=== PATIENT | female | born 1995 | race Caucasian/White ===

== ENCOUNTER 2023-11-09 14:45 | Outpatient (CLI) | payer BC, SELFPAY ==
[2023-11-09 15:59] LABS: HCG,Quantitative 7701 mIU/ml (0-5.42)
[2023-11-10 08:21] LABS: Progesterone 9.6 ng/mL (.)
== END 2023-11-09 23:59 | disposition home or self-care (01) ==
LOC: LAB 14:48
PROVIDERS: Visit Provider Obstetrics & Gynecology
DX: N92.6 Irregular menstruation, unspecified (principal)
CPT/HCPCS: 36415; 84144; 84702

== ENCOUNTER 2023-11-11 09:15 | Outpatient (CLI) | payer BC, SELFPAY ==
[2023-11-11 10:04] LABS: HCG,Quantitative 11450 mIU/ml (0-5.42)
== END 2023-11-11 23:59 | disposition home or self-care (01) ==
LOC: LAB 09:16
PROVIDERS: Visit Provider Obstetrics & Gynecology
DX: Z34.90 Encounter for supervision of normal pregnancy, unspecified, unspecified trimester (principal)
CPT/HCPCS: 36415; 84702

== ENCOUNTER 2023-11-12 14:52 | Outpatient (CLI) | payer BC, SELFPAY | END 2023-11-12 23:59 | disposition home or self-care (01) | LOC: LAB.DROPOF 14:52 | PROVIDERS: PCP Obstetrics & Gynecology; Visit Provider Obstetrics & Gynecology | DX: O20.9 Hemorrhage in early pregnancy, unspecified (principal); Z3A.01 Less than 8 weeks gestation of pregnancy | CPT/HCPCS: 87086 ==

== ENCOUNTER 2023-11-23 15:26 | Outpatient (CLI) | payer BC, SELFPAY ==
[2023-11-23 15:51] LABS: Basophils # 0.1 K/mm3 (0-0.2); Basophils % 0.7 % (0.1-2.0); Eosinophils # 0.2 K/mm3 (0.0-0.4); Eosinophils % 2.5 % (0.1-12.0); Hematocrit 32.8 % (37.0-47.0); Hemoglobin 10.7 g/dL (12.2-16.2); Lymphocytes # 2.3 K/mm3 (0.7-4.5); Lymphocytes % 23.7 % (10-50); Mean Corpuscular HGB Conc 32.7 g/dL (31.8-35.4); Mean Corpuscular Hemoglobin 21.9 pg (27.0-31.2); Monocytes # 0.6 K/mm3 (0.1-1.0); Monocytes % 5.6 % (1.7-9.3); Neutrophils # 6.7 K/mm3 (1.8-7.8); Neutrophils % 67.7 % (37.0-80.0); Platelet Count 442 K/mm3 (142-424); Red Blood Count 4.89 M/mm3 (4.20-5.40); Red Cell Distribution Width 18.2 % (11.5-17.5); White Blood Count 9.9 K/mm3 (4.8-10.8)
[2023-11-23 16:40] LABS: Alanine Aminotransferase 20 U/L (12-78); Albumin Level 4.3 g/dl (3.5-5.0); Albumin/Globulin Ratio 1.3 (1.1-1.8); Alkaline Phosphatase 105 U/L (38-126); Anion Gap 16.2 mEq/L (5-15); Aspartate Amino Transferase 20 U/L (14-36); Bilirubin,Total 0.2 mg/dl (0.2-1.3); Blood Urea Nitrogen 7 mg/dl (7-17); Calcium 9.4 mg/dl (8.4-10.2); Carbon Dioxide 19 mmol/L (22.0-30.0); Chloride 107 mmol/L (98-107); Estimated Glomerular Filt Rate 190 ml/min (>60); GFR (African American) 230 ML/MIN (>60); Globulin 3.2 g/dL (1.3-3.2); Glucose 92 mg/dl (74-100); Potassium 4.2 mmoL/L (3.5-5.1); Sodium 138 mmol/L (136-145); Total Protein,Serum 7.5 g/dl (6.3-8.2)
[2023-11-24 14:14] LABS: HIV (1&2) Antibody Rapid NONREACTIVE (NONREACTIVE)
[2023-11-25 07:52] LABS: HCV Ab Non Reactive (Non Reactive); Hepatitis B Surface Antigen Negative (Negative)
[2023-11-25 08:53] LABS: Rubella Antibodies, IgG 1.68 index (Immune >0.99)
[2023-11-25 11:14] LABS: Rapid Plasma Reagin Ab Titer Non Reactive titer (NonRea<1:1)
[2023-11-29 00:03] LABS: Neisseria gonorrhoeae, NAA Negative (Negative)
== END 2023-11-23 23:59 | disposition home or self-care (01) ==
LOC: LAB 15:26
PROVIDERS: Visit Provider Obstetrics & Gynecology
DX: Z34.90 Encounter for supervision of normal pregnancy, unspecified, unspecified trimester (principal)
CPT/HCPCS: 86803; 86703; 36415; 80053; 85025; 86593; 86762; 86850; 87340; 87491; 87591

== ENCOUNTER 2023-11-25 11:17 | Outpatient (CLI) | payer BC, SELFPAY ==
[2023-11-25 12:07] LABS: Total Protein 24 Hour,Urine 176 mg/24 hr (40-90); Total Volume,Urine 1950 mL (600-1600)
== END 2023-11-25 23:59 | disposition home or self-care (01) ==
LOC: LAB 11:18
PROVIDERS: Visit Provider Obstetrics & Gynecology
DX: Z34.90 Encounter for supervision of normal pregnancy, unspecified, unspecified trimester (principal)
CPT/HCPCS: 84155

== ENCOUNTER 2023-11-25 20:56 | Emergency (ER) | payer BC, SELFPAY ==
[2023-11-25 20:58] VITALS: BP 152/108; PULSE 96; RESP 18; TEMP 36.8; O2SAT 100; BMI 34.3
[2023-11-25 21:13] LABS: Microscopic, Urine URINE MICROSCOPIC (MICROSCOPIC)
[2023-11-25 21:15] LABS: Appearance,Urine CLEAR (Clear); Bilirubin,Urine Negative (Negative); Blood, Urine 1+ (Negative); Color,Urine YELLOW (Yellow); Glucose,Urine (UA) Negative (Negative); Ketones,Urine Negative (Negative); Leukocyte Esterase,Urine 2+ (Negative); Nitrate,Urine Negative (Negative); PH,Urine 7.5 (5.0-8.5); Protein,Urine Negative (Negative); Specific Gravity, Urine 1.015 (1.005-1.030); Urobilinogen,Urine 0.2 EU/dl (0.2)
--- NOTE | 2023-11-25 21:18 | HMH.EDGENADL ---
Discharge Plan Disposition Patient Disposition: Home, Self-Care Condition: Good Prescriptions Prescriptions: New cephalexin 500 mg capsule 500 mg PO Q6H 5 Days Qty: 20 0RF No Action Classic 28 mg iron- 800 mcg tablet 1 tab PO DAILY progesterone micronized [Prometrium] 100 mg capsule 200 mg vaginal DAILY 30 Days Qty: 60 2RF Rx Instructions: Please place one tablet vaginally each night until 12 weeks gestation Referrals Follow up/Referrals: Provider,Referral, MD [Primary Care Provider] - See instructions Activity Restrictions/Add. Instructions Additional Instructions/Restrictions: You were evaluated in the emergency department today. 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 Follow-up closely with your BODY TEAM MEMBER on Wednesday for reassessment of your blood pressure and further monitoring. Return to the emergency department for new or worsening symptoms, such as severe pain, significant worsening in bleeding, severe headache, or other concerns. Clinical Impressions Clinical Impression: Vaginal bleeding affecting early , Hypertension affecting , Asymptomatic bacteriuria during Instructions Patient Instructions: DI for Vaginal Bleeding During Print Language Print Language: Maltese Discharge ED Provider: Pratima Epperson General Adult HPI General Chief complaint: Vaginal Bleeding Stated complaint: 8 weeks with spotting Time Seen by Provider: 11/25/23 20:59 Mode of Arrival: Ambulatory Source of Information: Patient Limitations: No Limitations Description of Symptoms (Recalled from ER Triage Doc. by RN): Patient reports that she's 8 weeks and has had light intermittent spotting. 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 Patient reports intermittent cramping the whole and states that it does not seem increased at this time. Patients has had one TVUS which showed gestational sac and pole intrauterine. History of Present Illness HPI narrative: This patient is a 28-year-old female at estimated 8 weeks gestational age with history of preeclampsia in prior presenting to the emergency department for evaluation with concern for pelvic cramping and vaginal bleeding. Patient reports that she has had intermittent cramping and spotting throughout her entire at this point, however things got worse today after 2 days of improved symptoms. She states she is having blood when she wipes and believes that there was a small piece of tissue of some sort. She had a miscarriage back in October so she was worried that something could be wrong. She is on progesterone suppositories and does not know if potentially she could have caused some irritation with insertion. No other concerns noted at this time. I reviewed patient's past medical records and noted previous ultrasound which confirmed IUP. I also noted that her blood type is O+. Related Data Home Medications ?Medication ?Instructions ?Recorded ?Confirmed vits no.126-ferrous fum 1 tab PO DAILY 11/12/23 11/23/23 28 mg iron-folic acid 800 mcg tablet (Classic ) Previous Rx's ?Medication ?Instructions ?Recorded progesterone micronized 100 mg 200 mg (2 x 100 mg) vaginal DAILY 11/10/23 capsule (Prometrium) 30 days #60 caps cephalexin 500 mg capsule 500 mg PO Q6H 5 days #20 caps 11/25/23 Allergies Allergy/AdvReac Type Severity Reaction Status Date / Time amoxicillin Allergy Mild Hives Verified 11/23/23 14:29 [facility] Disclaimer: The information contained in this section may have been updated after the patient was seen, as this information can be updated by other users. Medical History Vaginal bleeding affecting early History of miscarriage Surgical History [place] teeth extracted History of ankle surgery Family History Other No significant family history Social History Smoking Status: Never smoker alcohol intake: never current occupational status: unemployed Travel in the last 8 weeks: None ROS Obtained: Yes All systems reviewed & no additional complaints except as documented Physical Exam General General appearance: alert and in no apparent distress Head Head exam: atraumatic and normocephalic Eye Eye exam: Present normal appearance, PERRL and EOMI ENT ENT exam: Present normal exam, normal oropharynx, mucous membranes moist and normal external ear exam Neck Neck exam: Present normal inspection, full ROM and trachea midline; Absent tenderness Chest Chest inspection: Present normal inspection and symmetric chest wall rise; Absent tenderness Respiratory Respiratory exam: Present normal lung sounds bilaterally; Absent respiratory distress, wheezes, stridor or accessory muscle use Cardiovascular Cardiovascular exam: Present regular rate and normal rhythm Abdominal Exam Abdominal exam: Present soft; Absent distention, tenderness or guarding Extremities Exam Extremities exam: Present normal inspection, full ROM and normal capillary refill; Absent tenderness or edema Back Exam Back exam: Present normal inspection and full ROM; Absent tenderness Neurological Exam Neurological exam: Present alert, oriented X3, CN II-XII intact and normal gait; Absent motor sensory deficit Psychiatric Psychiatric exam: Present normal affect and normal mood Skin Skin exam: Present warm and dry Medical Decision Making Medical Records Medical records reviewed: Yes I reviewed the patient's medical records. Darius Inquiry Pt receiving controlled substance: No Vital Signs: 11/25/23 20:58 11/25/23 21:45 Temperature 98.2 F Temperature Source Oral Pulse Rate 76 Pulse Rate [Left Radial] 96 H Respiratory Rate 18 Blood Pressure 132/91 H Blood Pressure [Left Arm] 152/108 H Blood Pressure Mean 108 Blood Pressure Mean [Left Arm] 122 Blood Pressure Source [Left Arm] Automatic Cuff Blood Pressure Position [Left Arm] Sitting 02 Sat by Pulse Oximetry 100 98 Oxygen Delivery Method Room Air Room Air Lab Data Lab results reviewed: Yes I reviewed the patient's lab results. Lab Results 11/25/23 21:02: Urine Color Yellow, Urine Appearance Clear, Urine pH 7.5, Ur Specific [place] 1.015, Urine Protein Negative, Urine Glucose (UA) Negative, Urine Ketones Negative, Urine Blood 1+, Urine Nitrate Negative, Urine Bilirubin Negative, Urine Urobilinogen 0.2, Ur Leukocyte Esterase 2+ A, Urine RBC 3-5, Urine WBC 20-50, Ur Squamous Epith Cells 3-5, Amorphous Sediment Trace, Urine Bacteria 2+ 11/25/23 21:21: WBC 11.4 H, RBC 4.43, Hgb 10.1 L, Hct 30.2 L, MCV 68.2 L, MCH 22.9 L, MCHC 33.5, RDW 18.4 H, Plt Count 423, MPV 7.1 L, Neut % (Auto) 60.9, Lymph % (Auto) 28.9, [place] % (Auto) 6.3, Eos % (Auto) 3.1, Baso % (Auto) 0.8, Neut # (Auto) 7.0, Lymph # (Auto) 3.3, [place] # (Auto) 0.7, Eos # (Auto) 0.4, Baso # (Auto) 0.1, Sodium 138, Potassium 3.8, Chloride 109 H, Carbon Dioxide 21 L, Anion Gap 11.8, BUN 7, Creatinine 0.70 D, Estimated Creat Clear 171, Estimated GFR 100, Est GFR ( Amer) 121 D, Glucose 115 H, Calcium 9.2, Total Bilirubin < 0.1 L, AST 21, ALT 22, Alkaline Phosphatase 90, Total Protein 7.6, Albumin 4.1, Globulin 3.5 H, Albumin/Globulin Ratio 1.2 11/25/23 21:21 11/25/23 21:21 Orders (Tests/Meds): ED MEDICATIONS Discontinued Medications Generic Name Dose Route Start Last Admin Trade Name Freq PRN Reason Stop Dose Admin Cephalexin HCl 500 mg 11/25/23 21:31 11/25/23 21:46 Cephalexin 500mg Capsule PO 11/25/23 21:32 500 mg ONCE ONE Administration ORDERS Category Date Time Status POCUS Point of Care (ER Only) Stat Exams 11/25/23 21:02 Ordered Beta HCG, Quant [HCG,Quantitative] Stat Lab 11/25/23 21:21 Results CBC w/Auto Diff [Complete Blood Count Auto Diff] Stat Lab 11/25/23 21:21 Completed CMP [Comprehensive Metabolic Panel] Stat Lab 11/25/23 21:21 Results UA [Urinalysis and Microscopic] Stat Lab 11/25/23 21:02 Completed Urine Culture Stat Micro 11/25/23 21:02 Received Medical Decision Narrative: In summary, this patient is a 28-year-old female presenting to the Emergency Department for evaluation of vaginal bleeding and cramping in . Differential diagnoses considered include but are not limited to subchorionic hemorrhage, threatened , missed , normal physiologic changes. Ruling out the most morbid conditions drove assessment. I reviewed patient's past medical records and noted previous ultrasound showing IUP as well as blood type which is O positive. No indication for RhoGAM. On exam, the patient is well-appearing. She has normal vital signs with the exception of blood pressure, which is 150s/100s. She does have history of pre-eclampsia affecting prior . In OB clinic, blood pressure was 140s over 80s. It appears that her plan is to obtain a 24-hour urine protein and CMP. Anti-hypertensive medications were discussed, but it does not appear patient is taking medication for blood pressure at this time. Abdominal exam is benign. Transabdominal ultrasound performed demonstrated a viable IUP with a notable heartbeat, however I was unable to calculate this given difficulty picking it up consistently with how early in this is. Workup included CBC, CMP, hCG quant, urinalysis. Urine demonstrates no proteinuria. Patient does have positive leukocyte esterase. She also has 1+ blood in the setting of vaginal bleeding. She has 2+ bacteria. Urine culture was sent and is pending, but will plan to treat given that she is . Will treat with cephalexin, as she has mild amox allergy from childhood (rash). Repeat blood pressure was 132/91. Labs are reassuring. Patient tolerated Keflex well. I had an interactive discussion with the patient's OB, Dr. Barber, who advised she would be happy to see her on Wednesday to monitor her blood pressure very closely. Given that blood pressure improved, after shared decision-making with the patient, she elected not to start medication at this time. Ultimately, patient was deemed to be appropriate for discharge. Prescription for Keflex to treat bacteria in the urine was given and patient was given instructions for close follow-up on Wednesday with her OB per her recs. Strict return precautions were given and she was discharged after all questions were answered. Procedures Limited Ultrasound Views:: Limited OB ultrasound Indication: , vaginal bleeding Identified structures: Uterus, partial bolus Findings: Uterus: Definitive IUP FHR: Unable to calculate given her early gestational age with difficulty picking up the heart rate with M mode, but heart is visibly beating on US Cul de sac: Free fluid absent Impression: -IUP: Definitive IUP with heartbeat -Free fluid: Absent Images were saved to permanent archive The study was technically adequate CPT Transabdominal: 85634-78 This study was performed by me, and I personally interpreted all images/videos. Based on my clinical judgement, these images were adequate and did not necessitate further imaging. Critical Care Critical Care Time Critical Care Time: No
[2023-11-25 21:30] LABS: Amorphous Sediment,Urine Trace /lpf; Bacteria,Urine 2+ /lpf; WBC,Urine 20-50 #/hpf (0-3)
[2023-11-25 21:44] LABS: Chloride 109 mmol/L (98-107); Sodium 138 mmol/L (136-145)
[2023-11-25 21:45] VITALS: BP 132/91; PULSE 76; O2SAT 98
[2023-11-25 21:45] LABS: Basophils # 0.1 K/mm3 (0-0.2); Basophils % 0.8 % (0.1-2.0); Eosinophils # 0.4 K/mm3 (0.0-0.4); Eosinophils % 3.1 % (0.1-12.0); Hematocrit 30.2 % (37.0-47.0); Hemoglobin 10.1 g/dL (12.2-16.2); Lymphocytes # 3.3 K/mm3 (0.7-4.5); Lymphocytes % 28.9 % (10-50); Mean Corpuscular HGB Conc 33.5 g/dL (31.8-35.4); Mean Corpuscular Hemoglobin 22.9 pg (27.0-31.2); Mean Corpuscular Volume 68.2 fl (81-99); Mean Platelet Volume 7.1 fl (7.4-10.4); Monocytes # 0.7 K/mm3 (0.1-1.0); Monocytes % 6.3 % (1.7-9.3); Neutrophils % 60.9 % (37.0-80.0); Platelet Count 423 K/mm3 (142-424); Potassium 3.8 mmoL/L (3.5-5.1); Red Blood Count 4.43 M/mm3 (4.20-5.40); Red Cell Distribution Width 18.4 % (11.5-17.5); White Blood Count 11.4 K/mm3 (4.8-10.8)
[2023-11-25] MEDS: cephALEXin 500MG CAPSULE 500 MG PO (21:46)
[2023-11-25 21:47] LABS: Alanine Aminotransferase 22 U/L (12-78); Alkaline Phosphatase 90 U/L (38-126); Aspartate Amino Transferase 21 U/L (14-36); Blood Urea Nitrogen 7 mg/dl (7-17); Creatinine Clearance Estimated 171 mL/min (50-200); Estimated Glomerular Filt Rate 100 ml/min (>60); GFR (African American) 121 ML/MIN (>60)
[2023-11-25 21:48] LABS: Albumin Level 4.1 g/dl (3.5-5.0); Albumin/Globulin Ratio 1.2 (1.1-1.8); Anion Gap 11.8 mEq/L (5-15); Calcium 9.2 mg/dl (8.4-10.2); Carbon Dioxide 21 mmol/L (22.0-30.0); Globulin 3.5 g/dL (1.3-3.2); Glucose 115 mg/dl (74-100); Total Protein,Serum 7.6 g/dl (6.3-8.2)
[2023-11-25 21:58] LABS: Bilirubin,Total < 0.1 mg/dl (0.2-1.3)
[2023-11-25 22:07] VITALS: BP 132/91; PULSE 77; RESP 17; TEMP 36.8; O2SAT 99
[2023-11-25 23:14] LABS: HCG,Quantitative 42775 mIU/ml (0-5.42)
== END 2023-11-25 22:08 | disposition home or self-care (01) ==
PROVIDERS: Emergency Provider Emergency Medicine
DX: O20.9 Hemorrhage in early pregnancy, unspecified (principal); O13.1 Gestational [pregnancy-induced] hypertension without significant proteinuria, first trimester; O23.91 Unspecified genitourinary tract infection in pregnancy, first trimester; Z3A.08 8 weeks gestation of pregnancy
CPT/HCPCS: 80053; 81001; 84702; 85025; 87086; 99284

== ENCOUNTER 2023-11-29 13:46 | Outpatient (CLI) | payer BC, SELFPAY ==
--- NOTE | 2023-11-29 13:46 | US_ITS ---
PROCEDURE: US OB <= 14 WEEKS FETUS CLINICAL INDICATION: viability and dates COMPARISON: US POINT OF CARE US (ER ONLY) from 11/25/2023 FINDINGS: Transvaginal sonographic images of the pelvis were obtained. From her last menstrual period she is 9weeks 0 days. An intrauterine gestational sac is present with a pole with a crown-rump length of 1.89cm This correlates to a gestational age of 8weeks 4days. heart tones are present with an FHR of 183bpm. Yolk sac is noted. The yolk sac measures 5.8mm. The right ovary is seen and appears normal. There are multiple small peripheral follicles. The left ovary is seen and appears normal. There is a corpus luteum in the left ovary. There is no fluid in the cul-de-sac. IMPRESSION: 1. Viable fetus within the uterine cavity. 2. Fetus measures 8 weeks 4 days. This correlates well with her last menstrual period and her JUSTUS will remain July 03, 2024. 3. Ovaries appear normal. 4. No fluid in the cul-de-sac. Dictated by: Igor Donovan MD 11/29/2023 16:52 Igor Donovan MD in OV 11/29/2023 16:52
== END 2023-11-29 23:59 | disposition home or self-care (01) ==
LOC: RAD 13:46
PROVIDERS: PCP Obstetrics & Gynecology; Visit Provider Obstetrics & Gynecology
DX: O36.80X0 Pregnancy with inconclusive fetal viability, not applicable or unspecified (principal); Z3A.08 8 weeks gestation of pregnancy
CPT/HCPCS: 76801

== ENCOUNTER 2023-12-21 02:19 | Observation (INO) | payer BC, SELFPAY ==
[2023-12-21] VITALS (17 sets, daily range): BP systolic 115–160; BP diastolic 72–108; PULSE 80–111; RESP 14–18; TEMP 36.4–36.9; O2SAT 96–100; BMI 34.3
--- NOTE | 2023-12-21 03:12 | PC.NURSE ---
Dr Alcaraz in room with pt stated she felt a gush, 12 wk fetus present.
[2023-12-21 03:14] LABS: Basophils # 0.1 K/mm3 (0-0.2); Basophils % 0.7 % (0.1-2.0); Eosinophils # 0.3 K/mm3 (0.0-0.4); Eosinophils % 2.2 % (0.1-12.0); Hematocrit 37.6 % (37.0-47.0); Hemoglobin 11.3 g/dL (12.2-16.2); Lymphocytes # 2.8 K/mm3 (0.7-4.5); Lymphocytes % 21.9 % (10-50); Mean Corpuscular HGB Conc 30.1 g/dL (31.8-35.4); Mean Corpuscular Hemoglobin 21.1 pg (27.0-31.2); Mean Corpuscular Volume 69.9 fl (81-99); Mean Platelet Volume 7.5 fl (7.4-10.4); Monocytes # 0.7 K/mm3 (0.1-1.0); Monocytes % 5.2 % (1.7-9.3); Neutrophils # 8.9 K/mm3 (1.8-7.8); Neutrophils % 70.1 % (37.0-80.0); Platelet Count 424 K/mm3 (142-424); Red Blood Count 5.38 M/mm3 (4.20-5.40); Red Cell Distribution Width 19.6 % (11.5-17.5); White Blood Count 12.8 K/mm3 (4.8-10.8)
--- NOTE | 2023-12-21 03:16 | PC.NURSE ---
ED doctor on phone with Dr. Donovan
[2023-12-21 03:22] LABS: Alanine Aminotransferase 18 U/L (12-78); Albumin Level 4.1 g/dl (3.5-5.0); Albumin/Globulin Ratio 1.1 (1.1-1.8); Alkaline Phosphatase 86 U/L (38-126); Anion Gap 10.1 mEq/L (5-15); Aspartate Amino Transferase 20 U/L (14-36); Bilirubin,Total 0.3 mg/dl (0.2-1.3); Blood Urea Nitrogen 12 mg/dl (7-17); Calcium 9.4 mg/dl (8.4-10.2); Carbon Dioxide 24 mmol/L (22.0-30.0); Chloride 107 mmol/L (98-107); Creatinine Clearance Estimated 240 mL/min (50-200); Estimated Glomerular Filt Rate 147 ml/min (>60); GFR (African American) 178 ML/MIN (>60); Globulin 3.6 g/dL (1.3-3.2); Glucose 116 mg/dl (74-100); Potassium 4.1 mmoL/L (3.5-5.1); Sodium 137 mmol/L (136-145); Total Protein,Serum 7.7 g/dl (6.3-8.2)
[2023-12-21 03:23] LABS: INR 0.91 (0.9-1.1); Prothrombin Time 10.3 seconds (10.1-12.5)
[2023-12-21] MEDS: miSOPROStoL 200 MCG TABLET 400 MCG PO ×2 (03:38→10:19)
--- NOTE | 2023-12-21 03:39 | PC.NURSE ---
Pt cleansed, linens changed, provided warm blanket, no other needs at this time.
--- NOTE | 2023-12-21 03:44 | HMH.EDGENADL ---
Discharge Plan Disposition Patient Disposition: Admitted Clinical Impressions Clinical Impression: Miscarriage at 8 to 28 weeks gestation Discharge ED Provider: James Alcaraz Adult HPI General Chief complaint: Vaginal Bleeding Stated complaint: 12 wks antepartum, abd cramps, bleeding Time Seen by Provider: 12/21/23 02:38 Mode of Arrival: Ambulatory Source of Information: Patient Limitations: No Limitations Description of Symptoms (Recalled from ER Triage Doc. by RN): Patient is 12 weeks today. Patient reports bleeding started around 1:00am. Patient reports bright red blood on toilet paper after using the bathroom. Patient then got up again to use restroom and had bright blood on toilet paper with some lower abd cramps. History of Present Illness HPI narrative: 28-year-old female approximately 12 weeks G4, P1 presents to the ER for concerns of vaginal bleeding and pelvic cramping. Patient reports she got up to use the restroom around 1 AM and had a small amount of blood on the paper when she wiped. She states this has been a normal occurrence for her during so she did not think too much of it though she was cramping more than normal. She states she went to the restroom again around 2 AM and noted more blood on the toilet paper which is abnormal for her and her pain had not subsided so she came to the ER. Patient reports she had 2 early miscarriages previously. Patient denies nausea, vomiting, any pain elsewhere in the body, no dysuria. She reports she did finish antibiotics for urinary tract infection a couple weeks ago. She reports her bleeding has not been significant enough to necessitate a pad. She has not passed any clots on arrival to the ER. Related Data Home Medications ?Medication ?Instructions ?Recorded ?Confirmed vits no.126-ferrous fum 1 tab PO DAILY 11/12/23 12/03/23 28 mg iron-folic acid 800 mcg tablet (Classic ) Previous Rx's ?Medication ?Instructions ?Recorded progesterone micronized 100 mg 200 mg (2 x 100 mg) vaginal DAILY 12/10/23 capsule (Prometrium) 30 days #60 caps Allergies Allergy/AdvReac Type Severity Reaction Status Date / Time amoxicillin Allergy Mild Hives Verified 12/03/23 08:37 [facility] Disclaimer: The information contained in this section may have been updated after the patient was seen, as this information can be updated by other users. Medical History Vaginal bleeding affecting early History of miscarriage Surgical History [place] teeth extracted History of ankle surgery Family History Other No significant family history Social History (Updated 12/21/23 @ 04:21 by Viktoria Fernandez RN) Smoking Status: Never smoker alcohol intake: never current occupational status: unemployed Travel in the last 8 weeks: None ROS Obtained: Yes All systems reviewed & no additional complaints except as documented Positive ROS per HPI Physical Exam General General appearance: alert and in no apparent distress Head Head exam: atraumatic and normocephalic Eye Eye exam: Present PERRL and EOMI ENT ENT exam: Present mucous membranes moist Neck Neck exam: Present normal inspection and full ROM Chest Chest inspection: Present symmetric chest wall rise Respiratory Respiratory exam: Absent respiratory distress or stridor Cardiovascular Cardiovascular exam: Present regular rate and normal rhythm Abdominal Exam Abdominal exam: Present soft; Absent distention or tenderness External exam: Present other (Slow vaginal bleeding on initial external exam) Extremities Exam Extremities exam: Present full ROM Neurological Exam Neurological exam: Present alert and oriented X3; Absent motor sensory deficit Psychiatric Psychiatric exam: Present normal affect and normal mood Skin Skin exam: Present warm and dry Medical Decision Making Medical Records Medical records reviewed: Yes I reviewed the patient's medical records. MR Comment: Most recent ultrasound within our system demonstrated intrauterine 8 weeks 4 days. Darius Inquiry Pt receiving controlled substance: No Vital Signs: 12/21/23 02:20 12/21/23 03:36 12/21/23 04:23 Temperature 98.3 F 98.3 F Temperature Source Oral Oral Pulse Rate 111 H 103 H Pulse Rate [Right Radial] 95 H Respiratory Rate 18 18 Blood Pressure 149/100 H 160/82 H Blood Pressure [Right Arm] 152/96 H Blood Pressure Mean [Right Arm] 114 Blood Pressure Source Automatic Cuff Blood Pressure Source [Right Arm] Automatic Cuff Blood Pressure Position [Right Arm] Supine 02 Sat by Pulse Oximetry 98 96 Oxygen Delivery Method Room Air Room Air Lab Data Lab Results 12/21/23 03:00: WBC 12.8 H, RBC 5.38, Hgb 11.3 L, Hct 37.6, MCV 69.9 L, MCH 21.1 L, MCHC 30.1 L, RDW 19.6 H, Plt Count 424, MPV 7.5, Neut % (Auto) 70.1, Lymph % (Auto) 21.9, [place] % (Auto) 5.2, Eos % (Auto) 2.2, Baso % (Auto) 0.7, Neut # (Auto) 8.9 H, Lymph # (Auto) 2.8, [place] # (Auto) 0.7, Eos # (Auto) 0.3, Baso # (Auto) 0.1, PT 10.3, INR 0.91, Sodium 137, Potassium 4.1, Chloride 107, Carbon Dioxide 24, Anion Gap 10.1, BUN 12, Creatinine 0.50 L, Estimated Creat Clear 240, Estimated GFR 147, Est GFR ( Amer) 178, Glucose 116 H, Calcium 9.4, Total Bilirubin 0.3, AST 20, ALT 18, Alkaline Phosphatase 86, Total Protein 7.7, Albumin 4.1, Globulin 3.6 H, Albumin/Globulin Ratio 1.1, HCG, Quant [id number] H 12/21/23 03:55: Blood Type O Positive, Antibody Screen Negative 12/21/23 03:00 12/21/23 03:00 Orders (Tests/Meds): ED MEDICATIONS Generic Name Dose Route Start Last Admin Trade Name Freq PRN Reason Stop Dose Admin Misoprostol 400 mcg 12/21/23 03:30 12/21/23 03:38 Misoprostol 200 Mcg Tablet PO 01/20/24 03:29 400 mcg Q6H VIKA Administration ORDERS Category Date Time Status Type and Screen Stat BBK 12/21/23 03:55 Completed POCUS Point of Care (ER Only) Stat Exams 12/21/23 02:53 Taken CBC w/Auto Diff [Complete Blood Count Auto Diff] Stat Lab 12/21/23 03:00 Completed CMP [Comprehensive Metabolic Panel] Stat Lab 12/21/23 03:00 Completed HCG,Quantitative Stat Lab 12/21/23 03:00 Completed PT INR [Prothrombin Time INR] Stat Lab 12/21/23 03:00 Completed US OB mater transabd add Routine Ultrasound 12/21/23 08:00 Ordered US OB transvaginal Routine Ultrasound 12/21/23 08:00 Ordered Medical Decision Narrative: In summary, this 28-year-old female G4, P1 approximately 12 weeks presents to the emergency department today with pelvic cramping and vaginal bleeding. On initial evaluation patient is anxious but otherwise hemodynamically stable, afebrile, mild vaginal bleeding on brief external exam initially. Nontender abdomen. Differential diagnosis includes but is not limited to subchorionic hemorrhage, threatened vs inevitable vs incomplete vs complete miscarriage, asymptomatic bacteriuria, anemia, hemorrhagic shock. Previous blood type O+, patient has not received RhoGAM in the past. Based on these concerns, I ordered serum labs, quantitative hCG, [id number] ultrasound. I had considered the possibility of ectopic however patient already has a confirmed intrauterine with no extrauterine abnormalities. At the time my initial examination, patient suddenly had a gush of fluid that she felt. This appeared to be blood however there was a clear ring around this stain sheet. I am concerned for amniotic fluid. I performed [id number] bedside ultrasound which did not demonstrate definite intrauterine or activity. I see findings consistent with blood products and placenta but did not visualize a fetus. No extrauterine free fluid appreciated. See procedure note. At approximately 0300 while I was still in the room discussing ultrasound findings with the patient, she felt a no other sudden gush of fluid and looked between her legs where she had passed the fetus. Fetus was not moving. I quickly called Dr. Grullon and discussed this with him. He stated patient could have the fetus sent for pathology testing, take the fetus home with her, or the hospital can dispose of the fetus. He recommended 400 mcg of oral Cytotec every 6 hours and is going to come evaluate the patient. [place]-rump length of fetus is 6 cm. Gestational age roughly 12 weeks estimated by CRL Fetus and associated tissue what appears to be part of the placenta was moved, patient continues having brisk vaginal bleeding based on external exam. She was given warm wet cloths to clean up and she passed another large amount of blood clot and tissue, likely the majority of her placenta. She was assisted in cleaning up and provided an absorbent brief for persistent bleeding. Patient spoke with her on the phone and decided to take the fetus with her. She was provided a casket for the fetus and fetus was placed in it, casket sealed. Label applied to the bottom of the casket. Labs reviewed demonstrate mild leukocytosis and anemia, nonspecific, nonactionable since patient's hemoglobin is 11.3 and she is otherwise asymptomatic at this time. CMP nonactionable, quantitative hCG 89,169. Quantitative hCG at the end of October was 42,775. Urine studies are not necessary at this time since patient is asymptomatic from a urinary standpoint. This was canceled. Type and screen O+. RhoGAM unnecessary. Dr. Donovan evaluated the patient at bedside and still agrees with the plan for admission for monitoring and continued Cytotec. Patient is amenable to this. She is being admitted to the OB floor in stable condition. Procedures Limited Ultrasound Indication:: Vaginal bleeding in Interpretation:: Limited OB ultrasound Indication: Vaginal bleeding Identified structures: Uterus, bilateral adnexa, pouch of Patricio Findings: Uterus: No definitive IUP, significant echogenic material with flow concerning for blood products, possible placenta Unable to identify cardiac activity or fetus Right adnexa: Unremarkable Left adnexa: Unremarkable Cul de sac: Free fluid absent Impression: No definite IUP, echogenic material likely blood and placenta in the uterus, unable to measure heart rate, normal bilateral adnexa, no free fluid appreciated Images were saved to permanent archive The study was technically adequate CPT Transabdominal: 13184-73 This study was performed by me, and I personally interpreted all images/videos. Based on my clinical judgement, these images were adequate and did not necessitate further imaging. Critical Care Critical Care Time Critical Care Time: No
--- NOTE | 2023-12-21 03:48 | PC.NURSE ---
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
--- NOTE | 2023-12-21 04:00 | PC.NURSE ---
Report received from Tena Chester RN
--- NOTE | 2023-12-21 04:00 | PC.NURSE ---
Report called to PITO Blum
--- NOTE | 2023-12-21 04:01 | PC.NURSE ---
Dr. Donovan and Dr. Alcaraz at bedside at this time
[2023-12-21 04:10] LABS: HCG,Quantitative 89169 mIU/ml (0-5.42)
--- NOTE | 2023-12-21 04:13 | PC.NURSE ---
Dr. Donovan called at this time to give orders for pt. ordered a pad count to monitor bleeding, as well as a transabdominal and transvaginal u/s in the AM when radiology gets here to look for leftover tissue. orders verified and read back.
--- NOTE | 2023-12-21 07:15 | PC.NURSE ---
Report received from PITO Ariza.
--- NOTE | 2023-12-21 07:59 | PC.NURSE ---
Pt taken to Radiology via w/c for ultrasounds.
--- NOTE | 2023-12-21 08:00 | US_ITS ---
PROCEDURE: US OB TRANSVAGINAL CLINICAL INDICATION: miscarriage COMPARISON: US US OB <= 14 WEEKS FETUS from 11/29/2023 US POINT OF CARE US (ER ONLY) from 12/21/2023 FINDINGS: Transvaginal sonographic images of the pelvis were obtained. UTERUS: 11.1cm x 7.7 cmx 7.0cm with a combined endometrial thickness of 3 cm.. There appears to be retained placental tissue and clot within the uterine cavity measuring 6 cm x 3 cm x 2 cm. There is a small amount of liquid blood within the uterine cavity as well. LEFT OVARY: 3.9 cmx2.3cmx3.1cm with a volume of 14.5ml. Left ovary has multiple small follicles and a polycystic appearance. RIGHT OVARY: 4.4cmx 2.0cmx2.8 cm with a volume of 13ml. Right ovary is more difficult to see but appears polycystic as well. Both ovaries are seen and appear normal. Doppler flow to both ovaries are seen. There is no fluid in the cul-de-sac. IMPRESSION: 1. Likely retained placenta along with significant blood clot measuring 6 cm x 3 cm. 2. Both ovaries are seen and appear polycystic. 3. No fluid in the cul-de-sac. Dictated by: Igor Donovan MD 12/21/2023 09:48 Igor Donovan MD in [place] 12/21/2023 09:48
--- NOTE | 2023-12-21 08:07 | P.CONPHA_ITS ---
Pharmacy Intervention Comments: MEDICATION RECONCILIATION COMPLETED ON PATIENT USING EXTERNAL FILL HISTORY FROM PHARMACY AND LIST FROM FIELD TRAINING MANAGER OFFICE.. -PATEL QUIÑONESD
--- NOTE | 2023-12-21 08:07 | HMH.PHAINT1 ---
Pharmacy Intervention Comments: MEDICATION RECONCILIATION COMPLETED ON PATIENT USING EXTERNAL FILL HISTORY FROM PHARMACY AND LIST FROM BODY SHOP MECHANIC OFFICE.. -PATEL QUIÑONESD
--- NOTE | 2023-12-21 08:24 | PC.NURSE ---
Pt back to floor from Radiology.
--- NOTE | 2023-12-21 08:34 | PC.NURSE ---
just called and said to keep pt NPO bc they are going to do a DNC.
--- NOTE | 2023-12-21 08:59 | EXP.HP ---
History of Present Illness *Admission Date: 12/21/23 *Reason for visit:: Vaginal bleeding, missed *History of present illness: 28-year-old female approximately 12 weeks G4, P1 presents to the ER for concerns of vaginal bleeding and pelvic cramping. Patient reports she got up to use the restroom around 1 AM and had a small amount of blood on the paper when she wiped. She states this has been a normal occurrence for her during so she did not think too much of it though she was cramping more than normal. She states she went to the restroom again around 2 AM and noted more blood on the toilet paper which is abnormal for her and her pain had not subsided so she came to the ER. Patient reports she had 2 early miscarriages previously. Patient denies nausea, vomiting, any pain elsewhere in the body, no dysuria. She reports she did finish antibiotics for urinary tract infection a couple weeks ago. She reports her bleeding has not been significant enough to necessitate a pad. She has not passed any clots on arrival to the ER. While in the ER she passed a complete 12-week size fetus. It is not clear whether she passed all of the placenta although I have given her Cytotec and this seemed this seemed to slow her bleeding. An ultrasound showed possible small amount of retained products. Given the fact that she is not actively bleeding at this point in time we will see if we can pass the tissue with Cytotec. We will get an ultrasound in the morning. [facility] Disclaimer: The information contained in this section may have been updated after the patient was seen, as this information can be updated by other users. Medical History Vaginal bleeding affecting early History of miscarriage Surgical History [place] teeth extracted History of ankle surgery Family History No significant family history Social History Smoking Status: Never smoker alcohol intake: never current occupational status: unemployed Travel in the last 8 weeks: None Review of Systems Review of Systems Review of systems:: pertinent systems reviewed and negative unless documented below Meds Home Medications and Allergies Home Medications ?Medication ?Instructions ?Recorded ?Confirmed ?Type vits no.126-ferrous fum 1 tab PO DAILY 11/12/23 12/21/23 History 28 mg iron-folic acid 800 mcg tablet (Classic ) progesterone micronized 100 mg 200 mg (2 x 100 mg) vaginal DAILY 12/10/23 12/21/23 Rx capsule (Prometrium) 30 days #60 caps New Prescriptions to Start Prescriptions: Allergies Allergy/AdvReac Type Severity Reaction Status Date / Time amoxicillin Allergy Mild Hives Verified 12/03/23 08:37 Exam Data for Last 24 hours Vital signs and Labs for Last 24 Hours: Temp Pulse Resp BP Pulse Ox O2 Del Method 98.3 F 110 H 18 128/108 H 98 Room Air 12/21/23 04:45 12/21/23 04:45 12/21/23 04:45 12/21/23 04:45 12/21/23 08:05 12/21/23 08:05 Laboratory Results - last 24 hr 12/21/23 03:00: WBC 12.8 H, RBC 5.38, Hgb 11.3 L, Hct 37.6, MCV 69.9 L, MCH 21.1 L, MCHC 30.1 L, RDW 19.6 H, Plt Count 424, MPV 7.5, Neut % (Auto) 70.1, Lymph % (Auto) 21.9, [place] % (Auto) 5.2, Eos % (Auto) 2.2, Baso % (Auto) 0.7, Neut # (Auto) 8.9 H, Lymph # (Auto) 2.8, [facility] [place] [facility] # (Auto) 0.7, Eos # (Auto) 0.3, Baso # (Auto) 0.1, PT 10.3, INR 0.91, Sodium 137, Potassium 4.1, Chloride 107, Carbon Dioxide 24, Anion Gap 10.1, BUN 12, Creatinine 0.50 L, Estimated Creat Clear 240, Estimated GFR 147, Est GFR ( Amer) 178, Glucose 116 H, Calcium 9.4, Total Bilirubin 0.3, AST 20, ALT 18, Alkaline Phosphatase 86, Total Protein 7.7, Albumin 4.1, Globulin 3.6 H, Albumin/Globulin Ratio 1.1, HCG, Quant [id number] H 12/21/23 03:55: Blood Type O Positive, Antibody Screen Negative I & O for Last 24 hours: Intake & Output 12/18/23 12/19/23 12/20/23 12/21/23 11:59 11:59 11:59 11:59 Output Total 800 / 800 Balance -800 / -800 Weight 200 lb Constitutional Constitutional: no acute distress *Routine HEENT Exam Head: Present normocephalic Eye: Present EOMI and PERRL ENT: Present mucous membranes moist *Routine Neck Exam Neck: Present supple; Absent lymphadenopathy *Routine Respiratory Exam Respiratory: Present CTA bilaterally *Routine Cardiovascular Exam Cardiovascular: Present RRR *Routine Abdominal Exam Abdominal: Present soft and normoactive bowel sounds; Absent tenderness *Routine Rectal Exam Rectal:: deferred *Routine Genitalia Exam Genitalia:: deferred *Routine Extremities Exam Extremities: Absent cyanosis, clubbing or edema *Routine Skin Exam Skin: Present warm; Absent rash *Routine Neurological Exam Neurological: Present alert and oriented X3 Assessment and Plan *Assessment and plan (1) Miscarriage at 8 to 28 weeks gestation: Status: Acute Category: Medical Code(s): O03.9 - Complete or unspecified spontaneous without complication (2) Hypertension affecting : Status: Acute Qualifiers: Trimester: first trimester Qualified Code(s): O16.1 - Unspecified maternal hypertension, first trimester Category: Medical Code(s): O16.9 - Unspecified maternal hypertension, unspecified trimester (3) Incomplete : Status: Acute Category: Medical Code(s): O03.4 - Incomplete spontaneous without complication Plan We will make arrangements for her to have a D&C with [facility] suction. Ultrasound this morning showed that there was still likely retained products. I am not sure that she passed the entire placenta. We discussed the risk of surgery that includes bleeding, infection, injury to adjacent structures. We discussed the rare risk of perforation. All questions were answered and consents were signed. Dr. Barber will be performing the surgery since it is her patient.
--- NOTE | 2023-12-21 11:54 | PC.NURSE ---
[facility] here to discuss plans for fetus with pt.
--- NOTE | 2023-12-21 12:26 | PC.NURSE ---
remains taken by [facility] at this time.
--- NOTE | 2023-12-21 12:31 | PC.NURSE ---
Pt taken to O.R. via bed for DNC.
--- NOTE | 2023-12-21 13:02 | US_ITS ---
PROCEDURE: US PELVIC CLINICAL INDICATION: OR/ DNC COMPARISON: US US OB <= 14 WEEKS FETUS from 11/29/2023 US US OB TRANSVAGINAL from 12/21/2023 US POINT OF CARE US (ER ONLY) from 12/21/2023 FINDINGS: A D and C was done under ultrasound guidance. All the tissue seems to be removed and the endometrium is now thin. IMPRESSION: 1. Ultrasound done at the time of D&C. 2. The uterus was completely evacuated. Dictated by: Igor Donovan MD 12/21/2023 16:46 Igor Donovan MD in [place] 12/21/2023 16:46
[2023-12-21] MEDS: DOXYCYCLINE HYCLATE 200 MG in 0.9 % SODIUM CHLORIDE 250 ML 166.667 MG IV (13:10)
--- NOTE | 2023-12-21 13:10 | EXP.ANES.CKL ---
[facility] Disclaimer: The information contained in this section may have been updated after the patient was seen, as this information can be updated by other users. Medical History Vaginal bleeding affecting early History of miscarriage Surgical History (Reviewed 12/21/23 @ 09: by Igor Donovan MD) [place] teeth extracted History of ankle surgery Family History (Reviewed 12/21/23 @ 09: by Igor Donovan MD) No significant family history Social History (Reviewed 12/21/23 @ 09: by Igor Donovan MD) Smoking Status: Never smoker alcohol intake: never substance use type: denies use current occupational status: unemployed Travel in the last 8 weeks: None [facility] Anesthesia Checklist Patient Identification Patient Identification: Verbal (Name & ) Structural Data Admitted From: Inpatient Planned Operative Procedure/s: d/c NPO Status Verified Time NPO: 08:00 Airway Assessment Mallampati Score:: Class II C-Spine Mobility Assessed: Yes TMJ Mobility Assessed: Yes Dentition: Good Dentition Neurological Assessment Level of Consciousness: Awake, Alert and Appropriate Anesthesia Plan Anesthesia Risk discussed: Yes Anesthesia Plan: Verified ASA Class: II Anesthesia Type: General
--- NOTE | 2023-12-21 13:26 | EXP.ANES.I ---
[facility] Anesthesia Record Part I Anesthesia Record I Intake, IV Amount: 1,000 Hydration: Adequate Estimated blood loss (mL): 50 Urine output (mL): 0 Blood Pressure: 134/85 SaO2: 97 Pulse Rate: 94 Airway Patency: Patent Respiratory Rate: 14 Temperature: 97.5 F Patient is:: Awake and Stable Stable to PACU at:: 13:25
--- NOTE | 2023-12-21 14:00 | PC.NURSE ---
Pt back to room 280 from PACU via bed and O.R. staff x2..
--- NOTE | 2023-12-21 15:26 | P.OP_ITS ---
Date of procedure: 12/21/23 Pre-op Diagnosis:: 1. 12 weeks spontaneous 2. Retained products of conception 3. Desires surgical management 4. Rh + Post-op Diagnosis:: 1. 12 weeks spontaneous 2. Retained products of conception 3. Desires surgical management 4. Rh + Procedure performed:: Dilation and suction curettage under ultrasound guidance Surgeon:: Sherrell Barber DO PRODUCTION TECHNOLOGIST:: Triston Purdy Anesthesia: GETA Estimated blood loss (mL): 10 Clinical Note:: Complications: None Operative findings:: Normal-appearing external genitalia. Large amounts of products of conception in the vagina on start of procedure Operative note:: Tobin Gonzalez is a 28-year-old G4, P1 who presented to the ED last night and was noted to pass a 12-week fetus. This morning on ultrasound it appeared that she still had products of conception. She was consented to expectant, medical, and surgical management. Given the risk of infection shared decision-making was used and we elected to proceed with surgical management. Risk including but not limited to uterine perforation, bleeding, and infection were discussed. Medications: Doxycycline 200 mg The patient was taken back to the operating room where anesthesia was administered. She was placed in the dorsolithotomy position with yellowfin stirrups and sterilely prepped and draped with chlorhexidine in the usual fashion. During the prep it was noted that there was a significant amount of uterine tissue in the vagina. Ultrasound was called to bedside for guidance and to determine if there are any products of conception within the uterus prior to instrumenting the uterus. In and out catheter was used to drain her bladder. Weighted speculum and a right angle retractor was used to visualize the cervix. A single-tooth tenaculum applied to the anterior lip cervix. There were protruding products that were grasped with a ring forcep and removed. The cervix was dilated 2 cm. On ultrasound the endometrial lining appeared to still be thickened. A #10 rigid curette was inserted to the fundus under ultrasound guidance and used to remove the retained products of conception. The suction curette was inserted to the fundus, hooked to suction, and twisted in a clockwise fashion until the curette was removed. Products noted in the tubing system. This process was repeated until all uterine contents were removed and a thin endometrial stripe was noted. Following this careful attention was given to the bleeding from the cervical os and was noted to be minimal. The single- tooth tenaculum was removed and hemostasis was noted. The speculum was removed and this completed the procedure. The patient tolerated the procedure well and all instrument and sponge counts were correct x2. The patient was awakened from general anesthesia and taken to the recovery room in a stable condition. The patient will be sent home after meeting all discharge criteria and follow-up with me in 2 weeks. Condition: stable Disposition: PACU Specimens:: Products of conception Complications:: None
--- NOTE | 2023-12-21 15:44 | PC.NURSE ---
IV saline lock discontinued at this time, catheter intact. Tolerated well. 2x2 and coban applied to site.
--- NOTE | 2023-12-21 16:18 | PC.NURSE ---
[facility] here to give pt her prescriptions.
--- NOTE | 2023-12-21 16:18 | PC.NURSE ---
Discharge instructions given. Verbalized understanding of discharge instructions.
--- NOTE | 2023-12-23 10:31 | EXP.ANES.II ---
[facility] Anesthesia Record Part II Anesthesia Record Part II Discharge Time: 13:55 Destination: Obstetric PACU nurse assessment reviewed?: Yes Patient Condition:: Good Anesthesia Complications:: None Swallowing reflex intact?: Yes Airway Patency: Patent Cyanosis?: No Blood Pressure: 131/82 SaO2: 99 Respiratory Rate: 16 Pulse Rate: 80 Temperature: 98.2 F Mental Status: Alert & Oriented Pain level:: 0 Nausea and/or vomitting:: None Intake, IV Amount: 0 Hydration: Adequate
[2023-12-23 10:32] VITALS: BP 131/82; PULSE 80; RESP 16; TEMP 36.8; O2SAT 99
--- NOTE | 2023-12-23 13:12 | P.DS_ITS ---
General Admission date:: 12/21/23 Discharge date: 12/21/23 HPI HPI HPI: 28-year-old female approximately 12 weeks G4, P1 presents to the ER for concerns of vaginal bleeding and pelvic cramping. Patient reports she got up to use the restroom around 1 AM and had a small amount of blood on the paper when she wiped. She states this has been a normal occurrence for her during so she did not think too much of it though she was cramping more than normal. She states she went to the restroom again around 2 AM and noted more blood on the toilet paper which is abnormal for her and her pain had not subsided so she came to the ER. Patient reports she had 2 early miscarriages previously. Patient denies nausea, vomiting, any pain elsewhere in the body, no dysuria. She reports she did finish antibiotics for urinary tract infection a couple weeks ago. She reports her bleeding has not been significant enough to necessitate a pad. She has not passed any clots on arrival to the ER. While in the ER she passed a complete 12-week size fetus. It is not clear whether she passed all of the placenta although I have given her Cytotec and this seemed this seemed to slow her bleeding. An ultrasound showed possible small amount of retained products. Given the fact that she is not actively bleeding at this point in time we will see if we can pass the tissue with Cytotec. We will get an ultrasound in the morning. Hospital Course Hospital Course Hospital Course: Tobin was admitted for an incomplete . She was stable and underwent an suction D&C which was uncomplicated and was discharged following the procedure. She will follow up in the office in 2 weeks Exam Data for Last 24 hours Vital signs and Labs for Last 24 Hours: Temp Pulse Resp BP Pulse Ox O2 Del Method 98.4 F 80 16 123/77 97 Room Air 12/21/23 15:30 12/21/23 17:00 12/23/23 10:32 12/21/23 17:00 12/21/23 17:00 12/21/23 17:00 I & O for Last 24 hours: Intake & Output 12/20/23 12/21/23 12/22/23 12/23/23 23:59 23:59 23:59 23:59 Intake Total 1000 / 1000 0 / 0 Output Total 800 / 800 Balance 200 / 200 0 / 0 Weight 200 lb Constitutional Constitutional: no acute distress *Routine HEENT Exam Head: Present normocephalic Eye: Present EOMI and PERRL ENT: Present mucous membranes moist *Routine Neck Exam Neck: Present supple; Absent lymphadenopathy *Routine Respiratory Exam Respiratory: Present CTA bilaterally *Routine Cardiovascular Exam Cardiovascular: Present RRR *Routine Abdominal Exam Abdominal: Present soft and normoactive bowel sounds; Absent tenderness *Routine Extremities Exam Extremities: Absent cyanosis, clubbing or edema *Routine Skin Exam Skin: Present warm; Absent rash *Routine Neurological Exam Neurological: Present alert and oriented X3 DS: Diagnosis Discharge Diagnosis (1) Miscarriage at 8 to 28 weeks gestation: Status: Acute Code(s): O03.9 - Complete or unspecified spontaneous without complication (2) Hypertension affecting : Status: Acute Code(s): O16.9 - Unspecified maternal hypertension, unspecified trimester Qualifiers: Trimester: first trimester Qualified Code(s): O16.1 - Unspecified maternal hypertension, first trimester (3) Incomplete : Status: Acute Code(s): O03.4 - Incomplete spontaneous without complication Meds Home Medications and Allergies Home Medications ?Medication ?Instructions ?Recorded ?Confirmed ?Type vits no.126-ferrous fum 1 tab PO DAILY 11/12/23 12/21/23 History 28 mg iron-folic acid 800 mcg tablet (Classic ) acetaminophen 500 mg tablet 500 mg PO Q6H PRN fever or pain 12/21/23 Rx #30 tabs ibuprofen 800 mg tablet 800 mg PO Q8H PRN pain #60 tabs 12/21/23 Rx oxycodone 5 mg tablet 5 mg PO Q8H PRN pain #5 tabs 12/21/23 Rx New Prescriptions to Start Prescriptions: acetaminophen Sherrell Barber ibuprofen Sherrell Barber oxycodone Sherrell Barber Allergies Allergy/AdvReac Type Severity Reaction Status Date / Time amoxicillin Allergy Mild Hives Verified 12/03/23 08:37 Discharge Plan Disposition Patient Disposition: Home, Self-Care Condition: Good Follow up Plan Follow up with: Sherrell Barber DO [Primary Care Provider] - 01/06/24 1:15 pm Prescriptions/Medication Reconciliation: New ibuprofen 800 mg tablet 800 mg PO Q8H PRN (Reason: pain) Qty: 60 2RF acetaminophen 500 mg tablet 500 mg PO Q6H PRN (Reason: fever or pain) Qty: 30 3RF oxycodone 5 mg tablet 5 mg PO Q8H PRN (Reason: pain) Qty: 5 0RF Continued Classic 28 mg iron- 800 mcg tablet 1 tab PO DAILY Discontinued progesterone micronized [Prometrium] 100 mg capsule 200 mg vaginal DAILY 30 Days Qty: 60 2RF Rx Instructions: Please place one tablet vaginally each night until 12 weeks gestation Problem Reconciliation Problems Reviewed?: Yes Patient Discharge Instructions ACTIVITY: Continue current activity DIET: advance to your usual diet Additional Instructions: You had a suction dilation and curettage. We used an ultrasound to ensure we removed all of the tissue from your uterus. You are also given doxycycline to decrease your risk of infection. Activity: - No lifting more than 20 lbs for 2 weeks. - No driving while you are taking narcotic pain medication. - Keep your wound clean and dry, ok to wash with soap and water but pat thoroughly dry. It is important to take shower every day to decrease her risk of postop infection Medications: - Ibuprofen (a nonsteroidal anti-inflammatory) for pain. Please take the ibuprofen scheduled for the first 2-3 days as this will help control your pain - Oxycodone (a narcotic pain medication) use the narcotic pain medication for breakthrough or severe pain. You will want to stop the narcotic pain medication first. Narcotic pain medication can be habit forming so please only use this medication if you need it. Please call the office or return to the ER if you have any of the followin. bleeding more than 1 pad an hour for 2 hours 2. pain that does not respond to your narcotic pain medication 3. dizziness or lightheadedness such that you lose consciousness 4. abnormal or purulent vaginal discharge Questions or concerns: It is my privilege to be your doctor. Please let me know if you have other questions or concerns. Sherrell Barber DO [facility] [place], [place] [address] Patient Instructions: DI for a Dilation and Curettage Print Language: [place] Providers Primary Care Provider: Sherrell Barber Admit Provider: Sherrell Barber Attending Provider: Sherrell Barber
== END 2023-12-21 16:35 | disposition home or self-care (01) ==
LOC: ER 02:38 → OB 04:25
PROVIDERS: Admitting Provider Obstetrics & Gynecology; Emergency Provider Emergency Medicine; PCP Obstetrics & Gynecology; Visit Provider Obstetrics & Gynecology
PROC: (CPT 59812; principal; 2023-12-21 12:00)
DX: O03.4 Incomplete spontaneous abortion without complication (principal); O16.1 Unspecified maternal hypertension, first trimester; Z3A.12 12 weeks gestation of pregnancy
CPT/HCPCS: 59812; 76817; 76856; 80053; 84702; 85025; 85610; 86850; 94761; G0283; G0378; J1100; J1885; J2250; J2405; J3010

== ENCOUNTER 2024-02-29 11:58 | Outpatient (CLI) | payer BC, SELFPAY ==
[2024-02-29 13:01] LABS: HCG,Quantitative 38 mIU/ml (0-5.42)
[2024-03-01 14:33] LABS: Progesterone 14.1 ng/mL (.)
== END 2024-02-29 23:59 | disposition home or self-care (01) ==
PROVIDERS: Visit Provider Obstetrics & Gynecology
DX: Z34.90 Encounter for supervision of normal pregnancy, unspecified, unspecified trimester (principal)
CPT/HCPCS: 36415; 84144; 84702

== ENCOUNTER 2024-03-02 08:08 | Outpatient (CLI) | payer BC, SELFPAY ==
[2024-03-02 09:24] LABS: HCG,Quantitative 110 mIU/ml (0-5.42)
== END 2024-03-02 23:59 | disposition home or self-care (01) ==
LOC: LAB 08:08
PROVIDERS: Visit Provider Obstetrics & Gynecology
DX: Z34.90 Encounter for supervision of normal pregnancy, unspecified, unspecified trimester (principal)
CPT/HCPCS: 36415; 84702

== ENCOUNTER 2024-03-20 14:17 | Outpatient (CLI) | payer BC, SELFPAY ==
--- NOTE | 2024-03-20 14:21 | US_ITS ---
PROCEDURE: US OB <= 14 WEEKS FETUS CLINICAL INDICATION: US OB Dates/Viability/Confirmation of COMPARISON: US US PELVIC from 12/21/2023 FINDINGS: Transvaginal sonographic images of the pelvis were obtained. From her last menstrual period she is 7weeks 1day. An intrauterine gestational sac is present with a pole with a crown-rump length of 0.57cm This correlates to a gestational age of 6weeks 3days. heart tones are present with an FHR of 133bpm. Yolk sac is noted. The yolk sac measures 3.1mm. The yolk sac is irregular in shape and appears slightly collapsed. The right ovary is seen and appears normal. There is a corpus luteum within the right ovary. The left ovary is seen and appears normal. There are multiple small peripheral follicles. There is trace fluid in the cul-de-sac. IMPRESSION: 1. A gestational sac with embryo is seen within the uterine cavity. The yolk sac appears irregular in shape. 2. heart rate activity is present. 3. Embryo measures 6 weeks 3 days. JUSTUS should be revised and will be 11/10/2024. 4. Both ovaries are seen and appear normal with a corpus luteum seen in the right ovary. 5. There is trace free fluid in the cul-de-sac. Dictated by: Igor Donovan MD 03/20/2024 16:08 Igor Donovan MD in [facility] 03/20/2024 16:08
== END 2024-03-20 23:59 | disposition home or self-care (01) ==
LOC: RAD 14:17
PROVIDERS: Visit Provider Obstetrics & Gynecology
DX: O36.80X0 Pregnancy with inconclusive fetal viability, not applicable or unspecified (principal); O16.1 Unspecified maternal hypertension, first trimester; O09.299 Supervision of pregnancy with other poor reproductive or obstetric history, unspecified trimester; O03.9 Complete or unspecified spontaneous abortion without complication
CPT/HCPCS: 76801

== ENCOUNTER 2024-03-22 16:41 | Outpatient (CLI) | payer BC, SELFPAY ==
[2024-03-22 18:23] LABS: HCG,Quantitative 39637 mIU/ml (0-5.42)
== END 2024-03-22 23:59 | disposition home or self-care (01) ==
LOC: LAB 16:42
PROVIDERS: Visit Provider Obstetrics & Gynecology
DX: Z34.90 Encounter for supervision of normal pregnancy, unspecified, unspecified trimester (principal)
CPT/HCPCS: 36415; 84702

== ENCOUNTER 2024-03-24 16:39 | Outpatient (CLI) | payer BC, SELFPAY ==
[2024-03-27 21:08] LABS: Neisseria gonorrhoeae, NAA Negative (Negative)
== END 2024-03-24 23:59 | disposition home or self-care (01) ==
LOC: LAB.DROPOF 16:40
PROVIDERS: PCP Obstetrics & Gynecology; Visit Provider Obstetrics & Gynecology
DX: Z34.81 Encounter for supervision of other normal pregnancy, first trimester (principal); Z34.90 Encounter for supervision of normal pregnancy, unspecified, unspecified trimester
CPT/HCPCS: 87086; 87491; 87591

== ENCOUNTER 2024-03-29 12:00 | Outpatient (CLI) | payer BC, SELFPAY ==
[2024-03-29 12:33] LABS: Basophils # 0.1 K/mm3 (0-0.2); Basophils % 0.9 % (0.1-2.0); Eosinophils # 0.2 K/mm3 (0.0-0.4); Hemoglobin 12.1 g/dL (12.2-16.2); Lymphocytes # 2.8 K/mm3 (0.7-4.5); Lymphocytes % 28.6 % (10-50); Mean Corpuscular HGB Conc 32.7 g/dL (31.8-35.4); Mean Corpuscular Hemoglobin 22.9 pg (27.0-31.2); Mean Corpuscular Volume 69.9 fl (81-99); Mean Platelet Volume 6.7 fl (7.4-10.4); Monocytes # 0.5 K/mm3 (0.1-1.0); Monocytes % 4.7 % (1.7-9.3); Neutrophils # 6.2 K/mm3 (1.8-7.8); Neutrophils % 63.8 % (37.0-80.0); Platelet Count 368 K/mm3 (142-424); Red Blood Count 5.29 M/mm3 (4.20-5.40); Red Cell Distribution Width 19.6 % (11.5-17.5); White Blood Count 9.7 K/mm3 (4.8-10.8)
[2024-03-29 12:50] LABS: Alanine Aminotransferase 13 U/L (12-78); Albumin Level 4.4 g/dl (3.5-5.0); Albumin/Globulin Ratio 1.6 (1.1-1.8); Alkaline Phosphatase 88 U/L (38-126); Aspartate Amino Transferase 17 U/L (14-36); Bilirubin,Total 0.3 mg/dl (0.2-1.3); Blood Urea Nitrogen 6 mg/dl (7-17); Calcium 9.4 mg/dl (8.4-10.2); Carbon Dioxide 18 mmol/L (22.0-30.0); Chloride 108 mmol/L (98-107); Estimated Glomerular Filt Rate 190 ml/min (>60); GFR (African American) 230 ML/MIN (>60); Globulin 2.8 g/dL (1.3-3.2); Glucose 76 mg/dl (74-100); Sodium 138 mmol/L (136-145); Total Protein,Serum 7.2 g/dl (6.3-8.2); Uric Acid 2.6 mg/dl (2.5-6.2)
[2024-03-29 13:05] LABS: Total Volume,Urine 2200 mL (600-1600)
[2024-03-29 13:10] LABS: Total Protein 24 Hour,Urine 264 mg/24 hr (40-90)
[2024-03-29 14:51] LABS: RPR W/RFX Titers Nonreactive (Nonreactive)
[2024-03-30 08:32] LABS: Hepatitis B Surface Antigen Negative (Negative); Rubella Antibodies, IgG 2.22 index (Immune >0.99)
== END 2024-03-29 23:59 | disposition home or self-care (01) ==
LOC: LAB 12:01
PROVIDERS: Visit Provider Obstetrics & Gynecology
DX: Z34.81 Encounter for supervision of other normal pregnancy, first trimester (principal); Z34.90 Encounter for supervision of normal pregnancy, unspecified, unspecified trimester
CPT/HCPCS: 80053; 84155; 84550; 85025; 86592; 86762; 86850; 87340

== ENCOUNTER 2024-06-23 09:13 | Outpatient (CLI) | payer BC, SELFPAY ==
--- NOTE | 2024-06-23 09:14 | US_ITS ---
PROCEDURE: US OB /MATERNAL DETAIL CLINICAL INDICATION: 20 week Anatomy Scan-US OB Complete COMPARISON: US US OB <= 14 WEEKS FETUS from 03/20/2024 FINDINGS: Transabdominal sonographic images of the pelvis were obtained. From her established due date she is 20 weeks 1 day. Single viable intrauterine gestation. Cephalic position. Placenta: Lateralplacenta grade 1. There is an average amount of fluid. The cervix appears satisfactory. Closed and measuring 4.38 cm in length. Complete survey performed and was unremarkable on the submitted images as in PACS. No discrete anomalies identified on survey imaging by technologist. Active fetus. Three-vessel cord with satisfactory umbilical cord insertion. 4- chamber heart noted. Situs, aortic arch, LVOT, RVOT, three-vessel view appear normal. Survey of brain & ventricles Unremarkable. Cerebellum, thalamus, choroid plexus, cisterna magna appear normal. Face and neck survey unremarkable. Profile, nasion, lips and nose appeared normal. Diaphragm and chest views unremarkable. Abdomen: Both kidneys noted and unremarkable. Stomach and bladder noted and satisfactory. Spine: Survey of the spine satisfactory with no anomalies identified nor imaged. Cervical, thoracic, lower spine appear normal. Both arms and legs noted. Amniotic Fluid: Adequate. MVP 3.96 cm Measurements: Average ultrasound age 21weeks 1day. Estimated due date by ultrasound age 0711/02/2024. Estimated weight 398g BPD = 21weeks 2days HC = 20weeks 5days AC = 21weeks 2days FL = 21weeks 1day Growth Percentile= 91 Heart Rate = 153bpm Cerebellum = 20weeks 1day Humerus = 21weeks HC/AC is 1.13 FL/BPD is 0.69 FL/AC is 0.22 IMPRESSION: 1. Viable fetus in the cephalic presentation with a lateral placenta grade 1. 2. The fluid is within normal limits with an MVP 4.96 cm. 3. Anatomical scan appears normal. 4. biometry is consistent with the dates. Dictated by: Igor Donovan MD 06/24/2024 09:15 Igor Donovan MD in [facility] 06/24/2024 09:15
== END 2024-06-23 23:59 | disposition home or self-care (01) ==
LOC: RAD 09:14
PROVIDERS: PCP Obstetrics & Gynecology; Visit Provider Obstetrics & Gynecology
DX: Z36.3 Encounter for antenatal screening for malformations (principal); O16.2 Unspecified maternal hypertension, second trimester; O09.292 Supervision of pregnancy with other poor reproductive or obstetric history, second trimester; N96 Recurrent pregnancy loss; Z3A.20 20 weeks gestation of pregnancy
CPT/HCPCS: 76811

== ENCOUNTER 2024-08-17 08:51 | Outpatient (CLI) | payer BC, SELFPAY ==
[2024-08-17 10:34] LABS: Basophils % 0.3 % (0.1-2.0); Eosinophils # 0.2 K/mm3 (0.0-0.4); Eosinophils % 1.4 % (0.1-12.0); Hematocrit 31.8 % (37.0-47.0); Hemoglobin 10.3 g/dL (12.2-16.2); Lymphocytes # 1.6 K/mm3 (0.7-4.5); Lymphocytes % 14.2 % (10-50); Mean Corpuscular HGB Conc 32.4 g/dL (31.8-35.4); Mean Corpuscular Hemoglobin 26.4 pg (27.0-31.2); Mean Corpuscular Volume 81.5 fl (81-99); Mean Platelet Volume 9.7 fl (7.4-10.4); Monocytes # 0.5 K/mm3 (0.1-1.0); Neutrophils # 9.2 K/mm3 (1.8-7.8); Neutrophils % 79.1 % (37.0-80.0); Nucleated Red Blood Cells # 0 10^3/uL; Nucleated Red Blood Cells % 0 %; Platelet Count 325 K/mm3 (142-424); Red Cell Distribution Width 15.2 % (11.5-17.5); White Blood Count 11.6 K/mm3 (4.8-10.8)
[2024-08-17 10:48] LABS: Glucose 1 Hour 154 mg/dL (74-100)
[2024-08-17 11:28] LABS: Hemoglobin A1C 5.5 % (4.0-6.0)
[2024-08-17 15:59] LABS: RPR W/RFX Titers Nonreactive (Nonreactive)
== END 2024-08-17 23:59 | disposition home or self-care (01) ==
PROVIDERS: Visit Provider Obstetrics & Gynecology
DX: Z34.03 Encounter for supervision of normal first pregnancy, third trimester (principal); Z3A.28 28 weeks gestation of pregnancy
CPT/HCPCS: 36415; 82947; 83036; 85025; 86592

== ENCOUNTER 2024-08-23 07:55 | Outpatient (CLI) | payer BC, SELFPAY ==
[2024-08-23 08:31] LABS: Glucose,Fasting 98 mg/dl (74-100)
[2024-08-23 09:18] LABS: Ferritin 4.24 ng/ml (6.24-137)
[2024-08-23 09:44] LABS: Glucose 1 Hour 195 mg/dL (74-100)
[2024-08-23 10:30] LABS: Glucose 2 Hour 154 mg/dL (74-100)
[2024-08-23 11:44] LABS: Glucose 3 Hour 117 mg/dL (74-100)
== END 2024-08-23 23:59 | disposition home or self-care (01) ==
LOC: LAB 07:57
PROVIDERS: Visit Provider Obstetrics & Gynecology
DX: N96 Recurrent pregnancy loss (principal); O09.292 Supervision of pregnancy with other poor reproductive or obstetric history, second trimester; Z3A.28 28 weeks gestation of pregnancy
CPT/HCPCS: 36415; 82728; 82951

== ENCOUNTER 2024-08-25 13:14 | Outpatient (CLI) | payer BC, SELFPAY ==
[2024-08-25 13:27] VITALS: BMI 35.3
[2024-08-25 13:44] LABS: Coronavirus 19, PCR Not Detected (NotDetected); Influenza A, PCR Not Detected (NotDetected); Influenza B, PCR Not Detected (NotDetected); Microscopic, Urine URINE MICROSCOPIC (MICROSCOPIC)
[2024-08-25 13:47] LABS: Appearance,Urine SL CLOUDY (Clear); Blood, Urine Negative (Negative); Color,Urine YELLOW (Yellow); Glucose,Urine (UA) Negative (Negative); Ketones,Urine 3+ (Negative); Leukocyte Esterase,Urine 2+ (Negative); Nitrate,Urine Negative (Negative); Protein,Urine 1+ (Negative); Specific Gravity, Urine >= 1.030 (1.005-1.030); Urobilinogen,Urine 0.2 EU/dl (0.2)
[2024-08-25 13:54] LABS: Bilirubin,Urine 1+ (Negative)
[2024-08-25 13:56] LABS: Bacteria,Urine 2+ /lpf
[2024-08-25] MEDS: MVI, ADULT NO.1 WITH VIT K 10 ML, THIAMINE HCL 100 MG, MAGNESIUM SULFATE 2 GM in LACTAT... 250 ML IV (13:57)
[2024-08-25 14:34] VITALS: BP 126/81; PULSE 99; RESP 17; TEMP 37.6; O2SAT 97; BMI 35.3
[2024-08-25 15:26] LABS: Alanine Aminotransferase 24 U/L (12-78); Albumin Level 3.6 g/dl (3.5-5.0); Albumin/Globulin Ratio 1.1 (1.1-1.8); Alkaline Phosphatase 130 U/L (38-126); Anion Gap 12.2 mEq/L (5-15); Aspartate Amino Transferase 28 U/L (14-36); Bilirubin,Total 0.3 mg/dl (0.2-1.3); Blood Urea Nitrogen 5 mg/dl (7-17); Calcium 8.1 mg/dl (8.4-10.2); Carbon Dioxide 14 mmol/L (22.0-30.0); Chloride 110 mmol/L (98-107); Creatinine Clearance Estimated 309 mL/min (50-200); Estimated Glomerular Filt Rate 190 ml/min (>60); GFR (African American) 230 ML/MIN (>60); Globulin 3.3 g/dL (1.3-3.2); Glucose 105 mg/dl (74-100); Magnesium 2.1 mg/dl (1.6-2.3); Potassium 3.2 mmoL/L (3.5-5.1); Sodium 133 mmol/L (136-145); Total Protein,Serum 6.9 g/dl (6.3-8.2)
[2024-08-25] MEDS: POTASSIUM CHLORIDE 20MEQ TAB 40 MEQ PO (16:30)
== END 2024-08-25 18:10 | disposition home or self-care (01) ==
LOC: OBOUT 13:16 → OB 13:16
PROVIDERS: Visit Provider Obstetrics & Gynecology
DX: O26.893 Other specified pregnancy related conditions, third trimester (principal); Z3A.29 29 weeks gestation of pregnancy; O21.8 Other vomiting complicating pregnancy
CPT/HCPCS: 36415; 80053; 81001; 83735; 87086; 87636; G0463; J3411; J7120

== ENCOUNTER 2024-09-14 10:36 | Outpatient (CLI) | payer BC, SELFPAY ==
[2024-09-14 11:05] LABS: Basophils % 0.3 % (0.1-2.0); Eosinophils # 0.1 Kmm3 (0.0-0.4); Eosinophils % 1.1 % (0.1-12.0); Hemoglobin 10.2 g/dL (12.2-16.2); Immature Granulocytes # 0.11 10^3uL; Lymphocytes # 1.7 K/mm3 (0.7-4.5); Lymphocytes % 14.9 % (10-50); Mean Corpuscular HGB Conc 31.9 g/dL (31.8-35.4); Mean Corpuscular Hemoglobin 25.2 pg (27.0-31.2); Mean Corpuscular Volume 79.2 fl (81-99); Mean Platelet Volume 9.6 fl (7.4-10.4); Monocytes # 0.6 K/mm3 (0.1-1.0); Monocytes % 5.7 % (1.7-9.3); Neutrophils # 8.7 K/mm3 (1.8-7.8); Nucleated Red Blood Cells # 0 10^3/uL; Nucleated Red Blood Cells % 0 %; Platelet Count 358 K/mm3 (142-424); Red Blood Count 4.04 M/mm3 (4.20-5.40); Red Cell Distribution Width 14.7 % (11.5-17.5); Red Cell Distribution Width-SD 42.5 fL; White Blood Count 11.3 K/mm3 (4.8-10.8)
[2024-09-14 11:46] LABS: Alanine Aminotransferase 13 U/L (12-78); Albumin Level 3.6 g/dl (3.5-5.0); Albumin/Globulin Ratio 1.3 (1.1-1.8); Alkaline Phosphatase 119 U/L (38-126); Aspartate Amino Transferase 17 U/L (14-36); Bilirubin,Total 0.3 mg/dl (0.2-1.3); Blood Urea Nitrogen 7 mg/dl (7-17); Carbon Dioxide 18 mmol/L (22.0-30.0); Chloride 109 mmol/L (98-107); Estimated Glomerular Filt Rate 189 ml/min (>60); GFR (African American) 228 ML/MIN (>60); Globulin 2.7 g/dL (1.3-3.2); Glucose 115 mg/dl (74-100); Sodium 135 mmol/L (136-145); Total Protein,Serum 6.3 g/dl (6.3-8.2); Uric Acid 2.5 mg/dl (2.5-6.2)
== END 2024-09-14 23:59 | disposition home or self-care (01) ==
LOC: LAB 10:36
PROVIDERS: Visit Provider Obstetrics & Gynecology
DX: O09.293 Supervision of pregnancy with other poor reproductive or obstetric history, third trimester (principal); O24.419 Gestational diabetes mellitus in pregnancy, unspecified control; O16.3 Unspecified maternal hypertension, third trimester; Z3A.30 30 weeks gestation of pregnancy
CPT/HCPCS: 36415; 80053; 84550; 85025

== ENCOUNTER 2024-09-19 12:43 | Outpatient (CLI) | payer BC, SELFPAY ==
--- NOTE | 2024-09-19 13:00 | US_ITS ---
PROCEDURE: US OB BIOPHYSICAL PROFILE CLINICAL INDICATION: Gest Diabetes,hypertension COMPARISON: US US OB <= 14 WEEKS FETUS from 03/20/2024 US US OB /MATERNAL DETAIL from 06/23/2024 FINDINGS: Transabdominal sonographic images of the uterus were obtained. From her established due date she is 32weeks 5days. The following parameters are obtained: Viable Fetus in the cephalic presentation with a posterior placenta grade 2. Average ultrasound age is 36weeks 1day Estimated weight 2,766g, 6 lb 2 oz The cervix measures 3.44 cm. Measurements: heart Rate = 158bpm BPD = 36weeks 1day, >98 percentile HC = 37weeks 3days, >98 percent AC = 35weeks 6days, >98 percentile FL = 35week 0 days, 90 percentile HC/AC is 1.03 FL/BPD is 0.76 FL/AC is 0.21 >98 percentile Amniotic fluid index: 14.44cm, MVP 5.72 cm Qualitative AFV:2 Breathing movements: 2 Gross Body Movements: 2 Tone: 2 Biophysical profile score: 8 No obvious anomalies evident.Kidneys, profile, stomach, bladder, four-chamber heart, three-vessel cord appear normal. IMPRESSION: 1. Viable fetus in the cephalic presentation with a posterior placenta grade 2. 2. The fluid is within normal limits with an amniotic fluid index 14.44 cm, MVP 5.72 cm. 3. Fetus is large for gestational age currently over 3 weeks ahead on its growth. The head and abdominal circumference are both large. 4. Biophysical profile is 8/8 with good breathing movement and movement seen. 5. Limited anatomical scan appears normal. Dictated by: Igor Donovan MD 09/19/2024 14:24 Igor Donovan MD in [place] 09/19/2024 14:24
== END 2024-09-19 23:59 | disposition home or self-care (01) ==
LOC: RAD 12:43
PROVIDERS: PCP Obstetrics & Gynecology; Visit Provider Obstetrics & Gynecology
DX: O36.63X0 Maternal care for excessive fetal growth, third trimester, not applicable or unspecified (principal); O09.293 Supervision of pregnancy with other poor reproductive or obstetric history, third trimester; O24.419 Gestational diabetes mellitus in pregnancy, unspecified control; O16.3 Unspecified maternal hypertension, third trimester; Z36.2 Encounter for other antenatal screening follow-up; Z3A.32 32 weeks gestation of pregnancy
CPT/HCPCS: 76816; 76819

== ENCOUNTER 2024-09-21 07:04 | Outpatient (CLI) | payer BC, SELFPAY ==
[2024-09-22 11:38] LABS: Prot,24hr calculated 410 mg/24 hr (30-150); Protein, Total, Urine 13.9 mg/dL (Not Estab.)
== END 2024-09-21 23:59 | disposition home or self-care (01) ==
LOC: LAB 07:05
PROVIDERS: Visit Provider Obstetrics & Gynecology
DX: O16.3 Unspecified maternal hypertension, third trimester (principal); O09.293 Supervision of pregnancy with other poor reproductive or obstetric history, third trimester; Z3A.33 33 weeks gestation of pregnancy
CPT/HCPCS: 84156

== ENCOUNTER 2024-09-22 14:44 | Outpatient (CLI) | payer BC, SELFPAY ==
[2024-09-22 15:09] VITALS: BMI 35.5
[2024-09-22 15:18] VITALS: BP 142/102
[2024-09-22 15:20] VITALS: BP 144/103; PULSE 84; RESP 17; TEMP 36.6; O2SAT 97; BMI 35.3
[2024-09-22] MEDS: LABETALOL 100MG TABLET 200 MG PO (15:24)
[2024-09-22 15:36] LABS: Basophils % 0.3 % (0.1-2.0); Eosinophils # 0.3 Kmm3 (0.0-0.4); Hematocrit 31.7 % (37.0-47.0); Hemoglobin 9.8 g/dL (12.2-16.2); Immature Granulocytes # 0.09 10^3uL; Immature Granulocytes % 0.7 %; Lymphocytes # 2.3 K/mm3 (0.7-4.5); Mean Corpuscular HGB Conc 30.9 g/dL (31.8-35.4); Mean Corpuscular Hemoglobin 24.2 pg (27.0-31.2); Mean Corpuscular Volume 78.3 fl (81-99); Mean Platelet Volume 9.4 fl (7.4-10.4); Monocytes # 0.9 K/mm3 (0.1-1.0); Monocytes % 7.2 % (1.7-9.3); Neutrophils # 9.1 K/mm3 (1.8-7.8); Neutrophils % 71.8 % (37.0-80.0); Nucleated Red Blood Cells # 0 10^3/uL; Nucleated Red Blood Cells % 0 %; Platelet Count 351 K/mm3 (142-424); Red Blood Count 4.05 M/mm3 (4.20-5.40); Red Cell Distribution Width 14.7 % (11.5-17.5); Red Cell Distribution Width-SD 41.9 fL; White Blood Count 12.7 K/mm3 (4.8-10.8)
[2024-09-22 15:43] LABS: Albumin Level 3.7 g/dl (3.5-5.0); Chloride 110 mmol/L (98-107); Potassium 3.7 mmoL/L (3.5-5.1); Sodium 134 mmol/L (136-145)
[2024-09-22 15:45] LABS: Blood Urea Nitrogen 5 mg/dl (7-17); Creatinine Clearance Estimated 308 mL/min (50-200); Estimated Glomerular Filt Rate 189 ml/min (>60); GFR (African American) 228 ML/MIN (>60)
[2024-09-22 15:46] LABS: Alanine Aminotransferase 11 U/L (12-78); Albumin/Globulin Ratio 1.1 (1.1-1.8); Alkaline Phosphatase 141 U/L (38-126); Anion Gap 8.7 mEq/L (5-15); Aspartate Amino Transferase 21 U/L (14-36); Bilirubin,Total 0.3 mg/dl (0.2-1.3); Calcium 9.1 mg/dl (8.4-10.2); Carbon Dioxide 19 mmol/L (22.0-30.0); Globulin 3.3 g/dL (1.3-3.2); Glucose 78 mg/dl (74-100)
[2024-09-22 15:59] LABS: Uric Acid 2.4 mg/dl (2.5-6.2)
== END 2024-09-22 16:26 | disposition home or self-care (01) ==
LOC: OBOUT 14:45 → OB 14:46
PROVIDERS: Obstetrics & Gynecology; Visit Provider Nurse Practitioner Obstetrics & Gynecology
DX: Z34.93 Encounter for supervision of normal pregnancy, unspecified, third trimester (principal); Z3A.33 33 weeks gestation of pregnancy
CPT/HCPCS: 36415; 80053; 84550; 85025

== ENCOUNTER 2024-09-23 07:00 | Outpatient (CLI) | payer BC, SELFPAY ==
--- NOTE | 2024-09-23 08:21 | P.PN_ITS ---
Subjective *Date: 09/23/24 *Time: 08:21 Interval history: She is a 29-year-old 5 para 1 at 33 weeks gestational age. She has increased blood pressure as well as gestational diabetes. She is here for a nonstress test. She was started on labetalol yesterday and took her first dose this morning. Medical Exam Head: Present normocephalic Neck: Present normal inspection Respiratory: Present normal respiratory effort; Absent accessory muscle use Assessment and Plan *Assessment and plan (1) Preeclampsia: Status: Acute Qualifiers: Trimester: third trimester Qualified Code(s): O14.93 - Unspecified pre- eclampsia, third trimester Category: Medical Code(s): O14.90 - Unspecified pre-eclampsia, unspecified trimester (2) Gestational diabetes: Status: Acute Qualifiers: Gestational diabetes mellitus control: insulin-controlled Trimester: third trimester Qualified Code(s): O24.414 - Gestational diabetes mellitus in , insulin controlled Category: Medical Code(s): O24.419 - Gestational diabetes mellitus in , unspecified control Plan 1. She is a gestational diabetic on insulin. She is here for a nonstress test. She started labetalol this morning. 2. Her nonstress test is reactive with good [id number] variability and good accelerations. 3. She started labetalol 200 mg this morning and her blood pressure is 120/76. She denies any headache, scotomata or epigastric pain. I gave her the warning signs for increased blood pressure. 4. She will follow-up in [address] Barber in the office.
[2024-09-23 08:23] VITALS: BMI 34.1
== END 2024-09-23 08:25 | disposition home or self-care (01) ==
LOC: OBOUT 07:01 → OB 07:04
PROVIDERS: Visit Provider Nurse Practitioner Obstetrics & Gynecology
DX: Z34.03 Encounter for supervision of normal first pregnancy, third trimester (principal); Z3A.33 33 weeks gestation of pregnancy
CPT/HCPCS: 59025; G0463

== ENCOUNTER 2024-09-26 13:36 | Outpatient (CLI) | payer BC, SELFPAY ==
--- NOTE | 2024-09-26 13:45 | US_ITS ---
PROCEDURE: US OB BIOPHYSICAL PROFILE CLINICAL INDICATION: Gest Diabetes, Hypertension in COMPARISON: US US OB <= 14 WEEKS FETUS from 03/20/2024 US US OB /MATERNAL DETAIL from 06/23/2024 US US OB BIOPHYSICAL PROFILE from 09/19/2024 FINDINGS: Transabdominal sonographic images of the uterus were obtained. From her established due date she is 33weeks 5days. The following parameters are obtained: Viable Fetus in the cephalic presentation with a posterior placenta grade 2. The cervix measures 3.47 cm Measurements: heart Rate = 144bpm Amniotic fluid index: 14.7cm, MVP 3.82 cm Qualitative AFV:2 Breathing movements: 2 Gross Body Movements: 2 Tone: 2 Biophysical profile score: 8 No obvious anomalies evident.Kidneys, profile, stomach, bladder, three-vessel cord appear normal. IMPRESSION: 1. Viable fetus in the cephalic presentation with a posterior placenta grade 2. 2. The fluid is within normal limits with an amniotic fluid index 14.7 cm, MVP 3.82 cm. 3. Biophysical profile is 8/8 with breathing and movement seen. 4. Limited anatomical scan appears normal. Dictated by: Igor Donovan MD 09/27/2024 07:02 Igor Donovan MD in [place] 09/27/2024 07:02
== END 2024-09-26 23:59 | disposition home or self-care (01) ==
LOC: RAD 13:37
PROVIDERS: PCP Obstetrics & Gynecology; Visit Provider Obstetrics & Gynecology
DX: O24.419 Gestational diabetes mellitus in pregnancy, unspecified control (principal); O16.3 Unspecified maternal hypertension, third trimester; O09.293 Supervision of pregnancy with other poor reproductive or obstetric history, third trimester; Z3A.33 33 weeks gestation of pregnancy
CPT/HCPCS: 76819

== ENCOUNTER 2024-09-26 15:40 | Outpatient (CLI) | payer BC, SELFPAY ==
[2024-09-26 17:14] LABS: Basophils % 0.2 % (0.1-2.0); Eosinophils # 0.2 Kmm3 (0.0-0.4); Eosinophils % 1.6 % (0.1-12.0); Hematocrit 31.7 % (37.0-47.0); Hemoglobin 10.1 g/dL (12.2-16.2); Immature Granulocytes # 0.13 10^3uL; Immature Granulocytes % 1.1 %; Mean Corpuscular HGB Conc 31.9 g/dL (31.8-35.4); Mean Corpuscular Hemoglobin 24.9 pg (27.0-31.2); Mean Corpuscular Volume 78.1 fl (81-99); Monocytes # 0.9 K/mm3 (0.1-1.0); Monocytes % 7.1 % (1.7-9.3); Neutrophils # 9.1 K/mm3 (1.8-7.8); Nucleated Red Blood Cells # 0 10^3/uL; Nucleated Red Blood Cells % 0 %; Platelet Count 400 K/mm3 (142-424); Red Blood Count 4.06 M/mm3 (4.20-5.40); Red Cell Distribution Width-SD 42.3 fL; White Blood Count 12.3 K/mm3 (4.8-10.8)
[2024-09-26 18:01] LABS: Alanine Aminotransferase 11 U/L (12-78); Albumin Level 3.5 g/dl (3.5-5.0); Albumin/Globulin Ratio 1.3 (1.1-1.8); Alkaline Phosphatase 143 U/L (38-126); Anion Gap 12.4 mEq/L (5-15); Aspartate Amino Transferase 18 U/L (14-36); Bilirubin,Total 0.3 mg/dl (0.2-1.3); Blood Urea Nitrogen 11 mg/dl (7-17); Calcium 8.7 mg/dl (8.4-10.2); Carbon Dioxide 18 mmol/L (22.0-30.0); Chloride 109 mmol/L (98-107); Estimated Glomerular Filt Rate 189 ml/min (>60); GFR (African American) 228 ML/MIN (>60); Globulin 2.8 g/dL (1.3-3.2); Glucose 69 mg/dl (74-100); Potassium 4.4 mmoL/L (3.5-5.1); Sodium 135 mmol/L (136-145); Total Protein,Serum 6.3 g/dl (6.3-8.2); Uric Acid 2.9 mg/dl (2.5-6.2)
[2024-09-26 19:26] LABS: Ferritin 4.82 ng/ml (6.24-137)
== END 2024-09-26 23:59 | disposition home or self-care (01) ==
LOC: LAB 15:41
PROVIDERS: Visit Provider Obstetrics & Gynecology
DX: O24.414 Gestational diabetes mellitus in pregnancy, insulin controlled (principal); O14.93 Unspecified pre-eclampsia, third trimester; Z3A.34 34 weeks gestation of pregnancy
CPT/HCPCS: 36415; 80053; 82728; 84550; 85025

== ENCOUNTER 2024-09-29 10:54 | Outpatient (CLI) | payer BC, SELFPAY ==
[2024-09-29] MEDS: IRON SUCROSE COMPLEX 200 MG in 0.9 % SODIUM CHLORIDE 100 ML 220 MG IV (11:13)
[2024-09-29] MEDS: SODIUM CHLORIDE 0.9% 50ML BAG 50 ML IV (11:14)
[2024-09-29 11:20] VITALS: BP 115/70; PULSE 82; RESP 16; O2SAT 98
[2024-09-29 11:50] VITALS: BP 121/76; PULSE 83; RESP 17
== END 2024-09-29 12:05 | disposition home or self-care (01) ==
LOC: INF 10:56
PROVIDERS: Visit Provider Obstetrics & Gynecology
DX: O99.013 Anemia complicating pregnancy, third trimester (principal); Z3A.34 34 weeks gestation of pregnancy
CPT/HCPCS: 96365; J1756

== ENCOUNTER 2024-10-01 09:05 | Emergency (ER) | payer BC, SELFPAY ==
--- NOTE | 2024-10-01 09:07 | HMH.EDGENADL ---
Discharge Plan Disposition Patient Disposition: Xfer Other Condition: Critical Prescriptions Prescriptions: No Action Classic 28 mg iron- 800 mcg tablet 1 tab PO DAILY aspirin 81 mg tablet,delayed release (DR/EC) 81 mg PO BID (DME) Dexcom G6 Sensor Device See Rx Instructions .Route Qty: 3 0RF Rx Instructions: As directed (DME) Dexcom G6 Frame Operator Misc See Rx Instructions .Route Qty: 1 0RF Rx Instructions: Keep a log for fasting glucose and 2 hours after each meal. (DME) Dexcom G6 Transmitter Device See Rx Instructions .Route Qty: 1 0RF Rx Instructions: As directed insulin glargine-yfgn [Semglee(insulin glarg-yfgn)Pen] 100 unit/mL (3 mL) insulin pen 8 unit SQ HS Patient Comments: INJECT 8 UNITS SUBCUTANEOUSLY EVERY DAY AT BEDTIME DISCARD USED PEN 28 DAYS FROM FIRST USE (DME) blood-glucose meter Kit See Rx Instructions .Route Qty: 1 0RF Rx Instructions: Check glucose qid. Fasting & 2 hours after each meal. labetalol 200 mg tablet 200 mg PO BID Qty: 60 2RF Venofer 200 mg iron/10 mL solution 200 mg IV WEEKLY Rx Instructions: administer over 30 mins Referrals Follow up/Referrals: Provider,Referral, MD [Primary Care Provider, Medical] - See instructions Clinical Impressions Clinical Impression: Preeclampsia Qualifiers: Trimester: third trimester Qualified Code(s): O14.93 - Unspecified pre-eclampsia, third trimester Print Language Print Language: Lithuanian Discharge ED Provider: Aura Ricardo General Adult HPI General Chief complaint: Chest Pain Stated complaint: CP Time Seen by Provider: 10/01/24 09:07 History of Present Illness HPI narrative: Patient is a 29-year-old with past medical history significant for with chronic hypertension superimposed by preeclampsia presents to the emergency department with epigastric pain and chest pain and shortness of breath that started at 4 AM and has not relieved. Worse with any movement. No bleeding or leakage of fluid but intermittent upper abdominal cramping. Still feeling baby kick. No headaches blurred vision. Related Data Home Medications ?Medication ?Instructions ?Recorded ?Confirmed vits no.126-ferrous fum 1 tab PO DAILY 03/24/24 09/29/24 28 mg iron-folic acid 800 mcg tablet (Classic ) aspirin 81 mg tablet,delayed 81 mg PO BID 04/21/24 09/29/24 release insulin glargine-yfgn 100 unit/mL 8 unit SQ HS 09/05/24 09/29/24 (3 mL) subcutaneous pen (Semglee (insulin glargine-yfgn) Pen) Previous Rx's ?Medication ?Instructions ?Recorded blood-glucose meter #1 ea 08/23/24 blood-glucose sensor (Dexcom G6 #3 ea 08/31/24 Sensor device) blood-glucose transmitter (Dexcom #1 ea 08/31/24 G6 Transmitter device) blood-glucose,manager part,cont #1 ea 08/31/24 (Dexcom G6 Frame Operator) labetalol 200 mg tablet 200 mg PO BID #60 tabs 09/22/24 iron sucrose 200 mg iron/10 mL 200 mg (10 mL) IV WEEKLY 4 doses 09/28/24 intravenous solution (Venofer) Allergies Allergy/AdvReac Type Severity Reaction Status Date / Time amoxicillin Allergy Mild Hives Verified 09/29/24 09:22 [facility] Disclaimer: The information contained in this section may have been updated after the patient was seen, as this information can be updated by other users. Medical History Vaginal bleeding affecting early History of miscarriage Surgical History Globe teeth extracted History of ankle surgery Family History Other No significant family history Social History Smoking Status: Never smoker alcohol intake: never substance use type: denies use current occupational status: employed Travel in the last 8 weeks?: None Have you lived/traveled outside [place] in past 30 days?: No Contact w/someone who lives/traveled outside US past 30 days?: No Exposure to someone with infectious disease in past 14 days?: No Do you have a fever (greater than 100.4 F or 38 C)?: No Have you tested positive for COVID-19?: No Exposed to someone with COVID-19 in past 14 days?: No Do you have a sore throat?: No Do you have a cough?: No Do you have any weakness?: No Do you have any diarrhea?: No Are you experiencing any unusual bleeding?: No Do you have any muscle aches/pain?: No Do you have any abdominal pain?: No Are you experiencing loss of taste or smell?: No Other Medical History Have you received the Flu Vaccine for this season: No Have you received the Pneumonia Vaccine: No ROS Obtained: Yes All systems reviewed & no additional complaints except as documented Physical Exam General General appearance: alert and anxious Respiratory Respiratory exam: Present normal lung sounds bilaterally; Absent respiratory distress Cardiovascular Cardiovascular exam: Present regular rate and normal rhythm Abdominal Exam Abdominal tenderness: Present epigastrium Comment: gravid External exam: Present normal external exam (no ) Neurological Exam Neurological exam: Present alert and oriented X3 Skin Skin exam: Present warm, dry and other (LE edema) Medical Decision Making Medical Records Screening: Per USPSTF and CDC recommendations, given the prevalence of disease in our region, it is our hospital?s policy to screen for HIV and viral Hepatitis for all patients aged 18 and over and those with ongoing risk factors. Darius Inquiry Pt receiving controlled substance: No Darius was queried for this patient: No Vital Signs: 10/01/24 09:11 10/01/24 09:25 Temperature 97.9 F Temperature Source Oral Pulse Rate 80 Pulse Rate [Left Radial] 80 Respiratory Rate 20 Blood Pressure [Right Arm] 142/95 H Blood Pressure Mean [Right Arm] 110 02 Sat by Pulse Oximetry 98 Oxygen Delivery Method Room Air Lab Data Lab Results 10/01/24 09:15: WBC 11.1 H, RBC 4.16 L, Hgb 10.5 L, Hct 32.6 L, MCV 78.4 L, MCH 25.2 L, MCHC 32.2, RDW 15.2, Plt Count 356, MPV 10.0, Neut % (Auto) 75.6, Lymph % (Auto) 14.1, Kinney % (Auto) 5.9, Eos % (Auto) 2.2, Baso % (Auto) 0.4, Neut # (Auto) 8.4 H, Lymph # (Auto) 1.6, Kinney # (Auto) 0.7, Eos # (Auto) 0.2, Baso # (Auto) 0.0, Sodium 137, Potassium 4.0, Chloride 108 H, Carbon Dioxide 21 L, Anion Gap 12.0, BUN 11, Creatinine 0.40 L, Estimated Creat Clear 305 H, Estimated GFR 189, Est GFR ( Amer) 228, Uric Acid 3.3, Magnesium 1.6, Total Bilirubin 0.3, AST 22, ALT 16, Alkaline Phosphatase 139 H, Lactate Dehydrogenase 143 L, Total Protein 7.0, Albumin 3.7, Globulin 3.3 H, Albumin/Globulin Ratio 1.1 10/01/24 09:15 10/01/24 09:15 Orders (Tests/Meds): ORDERS Category Date Time Status POCUS Point of Care (ER Only) Stat Exams 10/01/24 09:09 Ordered CBC w/Auto Diff [Complete Blood Count Auto Diff] Stat Lab 10/01/24 09:15 Completed Comprehensive Metabolic Panel Stat Lab 10/01/24 09:15 Results Lactate Dehydrogenase Stat Lab 10/01/24 09:15 Results Magnesium Stat Lab 10/01/24 09:15 Results Troponin I Q3H Lab 10/01/24 12:30 Ordered Troponin I Q3H Lab 10/01/24 15:30 Ordered Troponin I Stat Lab 10/01/24 09:15 Results Uric Acid Stat Lab 10/01/24 09:15 Results Urinalysis and Microscopic Stat Lab 10/01/24 09:23 Ordered Medical Decision Narrative: In summary, this 29-year-old female presents to the emergency department today with chest pain and abdominal pain. On initial evaluation patient is hypertensive 142/95, normal heart rate, afebrile in no acute distress. Differential diagnosis includes but is not limited to preeclampsia, preeclampsia with severe features, labor ACS PE. Based on these concerns, I ordered CBC CMP magnesium EKG UA LDH uric acid EKG. ECG personally interpreted demonstrates normal sinus rhythm no ST elevation ST depression or T wave inversions concerning for ischemia. I had an interactive discussion with Dr. Barber with OB agreed to accept patient to labor and delivery for emergent evaluation. Patient discharged to labor and delivery. Procedures Limited Ultrasound Indication:: cp Interpretation:: Limited Cardiac Ultrasound Indication: Chest pain Identified cardiac views: Cardiac parasternal long and apical lungs Findings: Cardiac activity present -Gross wall motion normal -Pericardial effusion present -Right heart strain present Impression: -normal limited US Images were not saved to permanent archive The study was technically adequate CPT: 17611 This study was performed by me, and I personally interpreted all images/videos. Based on my clinical judgement, these images were [adequate/inadequate] and [did/did not] necessitate further imaging. Critical Care Critical Care Time Critical Care Time: No
[2024-10-01 09:09] VITALS: BP 142/95; PULSE 78; O2SAT 99
--- NOTE | 2024-10-01 09:10 | ECG_ITS ---
APPROVED REPORT Exam: Resting ECG HR:61 bpm ECG Measurements Heart Rate 61 AXES RI 165 P 17 QRSd 82 QRS 85 QT 408 T 29 QTc 411 Conclusion SINUS RHYTHM WITH SINUS ARRHYTHMIA ST DEVIATION AND MODERATE T-WAVE ABNORMALITY, CONSIDER LATERAL ISCHEMIA [-0.1+ mV T-WAVE IN I/aVL/V5/V6] No STEMI Electronically signed by : AAMIR ARGUETA, 10/07/2024 03:56:40
[2024-10-01 09:11] VITALS: BP 142/95; PULSE 80; RESP 20; TEMP 36.6; O2SAT 98; BMI 34.1
--- NOTE | 2024-10-01 09:12 | PC.NURSE ---
Finger stick glucose 90
[2024-10-01 09:25] VITALS: PULSE 80
[2024-10-01 09:31] LABS: Basophils % 0.4 % (0.1-2.0); Eosinophils # 0.2 Kmm3 (0.0-0.4); Eosinophils % 2.2 % (0.1-12.0); Hematocrit 32.6 % (37.0-47.0); Hemoglobin 10.5 g/dL (12.2-16.2); Immature Granulocytes % 1.8 %; Lymphocytes # 1.6 K/mm3 (0.7-4.5); Lymphocytes % 14.1 % (10-50); Mean Corpuscular HGB Conc 32.2 g/dL (31.8-35.4); Mean Corpuscular Hemoglobin 25.2 pg (27.0-31.2); Mean Corpuscular Volume 78.4 fl (81-99); Monocytes # 0.7 K/mm3 (0.1-1.0); Monocytes % 5.9 % (1.7-9.3); Neutrophils # 8.4 K/mm3 (1.8-7.8); Neutrophils % 75.6 % (37.0-80.0); Nucleated Red Blood Cells # 0 10^3/uL; Nucleated Red Blood Cells % 0 %; Platelet Count 356 K/mm3 (142-424); Red Blood Count 4.16 M/mm3 (4.20-5.40); Red Cell Distribution Width 15.2 % (11.5-17.5); Red Cell Distribution Width-SD 42.8 fL; White Blood Count 11.1 K/mm3 (4.8-10.8)
[2024-10-01 09:38] LABS: Alanine Aminotransferase 16 U/L (12-78); Albumin Level 3.7 g/dl (3.5-5.0); Albumin/Globulin Ratio 1.1 (1.1-1.8); Alkaline Phosphatase 139 U/L (38-126); Aspartate Amino Transferase 22 U/L (14-36); Bilirubin,Total 0.3 mg/dl (0.2-1.3); Blood Urea Nitrogen 11 mg/dl (7-17); Carbon Dioxide 21 mmol/L (22.0-30.0); Chloride 108 mmol/L (98-107); Creatinine Clearance Estimated 305 mL/min (50-200); Estimated Glomerular Filt Rate 189 ml/min (>60); GFR (African American) 228 ML/MIN (>60); Globulin 3.3 g/dL (1.3-3.2); Lactate Dehydrogenase 143 U/L (313-618); Magnesium 1.6 mg/dl (1.6-2.3); Sodium 137 mmol/L (136-145); Uric Acid 3.3 mg/dl (2.5-6.2)
[2024-10-01 09:43] LABS: Calcium 8.8 mg/dl (8.4-10.2); Glucose 96 mg/dl (74-100)
--- NOTE | 2024-10-01 09:45 | PC.NURSE ---
Pt was taken to OB, spoke with ON RN to give report and was told they were good and did not need anything further.
[2024-10-01 09:46] VITALS: BP 147/93; PULSE 78; RESP 99; TEMP 37; O2SAT 99
[2024-10-01 09:50] LABS: Troponin I < 0.01 ng/ml (0.00-0.034)
== END 2024-10-01 09:48 | disposition other institution (70) ==
PROVIDERS: Emergency Provider Student in an Organized Health Care Education/Training Program
DX: O26.893 Other specified pregnancy related conditions, third trimester (principal); R07.89 Other chest pain; R10.13 Epigastric pain; R06.02 Shortness of breath; O14.93 Unspecified pre-eclampsia, third trimester; Z3A.34 34 weeks gestation of pregnancy
CPT/HCPCS: 80053; 83615; 83735; 84484; 84550; 85025; 93005; 99285

== ENCOUNTER 2024-10-01 09:34 | Outpatient (CLI) | payer BC, SELFPAY ==
[2024-10-01 09:37] VITALS: BMI 33.9
--- NOTE | 2024-10-01 09:44 | US_ITS ---
PROCEDURE INFORMATION: Exam: US Biophysical Profile Without Non-Stress Test Exam date and time: 10/01/2024 10:32 AM Age: 29 years old Clinical indication: status abnormalities: ; movements, decreased; Single gestation; Third trimester (>=28 weeks 0 days); ; Additional info: Decreased movement TECHNIQUE: Imaging protocol: US biophysical profile without non-stress testing. COMPARISON: US OB BIOPHYSICAL PROFILE 26/09/2024 13:37 FINDINGS: position: Cephalic. heart rate: 130 bpm Amniotic fluid index: MICHAEL is 12.98 cm. BIOPHYSICAL PROFILE: breathing (BPP): 2 /2 gross body movement (BPP): 2 /2 tone (BPP): 2 /2 Amniotic fluid (BPP): 2 /2 Biophysical profile score (BPP): 8 /8 MATERNAL ANATOMY: Cervix: Cervical length measures 3.86 cm. IMPRESSION: Normal biophysical profile, 8/8.
[2024-10-01 10:14] VITALS: BP 125/83; PULSE 70; RESP 17; TEMP 36.9; O2SAT 100; BMI 33.9
[2024-10-01 10:44] VITALS: BP 119/80
[2024-10-01 11:14] VITALS: BP 126/80
[2024-10-01 11:44] VITALS: BP 137/80
[2024-10-01 12:14] VITALS: BP 127/76
== END 2024-10-01 13:04 | disposition home or self-care (01) ==
LOC: OBOUT 09:36 → OB 09:36
PROVIDERS: Visit Provider Obstetrics & Gynecology
DX: O36.8130 Decreased fetal movements, third trimester, not applicable or unspecified (principal); O11.3 Pre-existing hypertension with pre-eclampsia, third trimester; Z3A.34 34 weeks gestation of pregnancy
CPT/HCPCS: 59025; 76819; G0463

== ENCOUNTER 2024-10-03 08:49 | Outpatient (CLI) | payer BC, SELFPAY ==
--- NOTE | 2024-10-03 09:00 | US_ITS ---
PROCEDURE: US OB BIOPHYSICAL PROFILE CLINICAL INDICATION: CHTN in , GDM COMPARISON: US US OB <= 14 WEEKS FETUS from 03/20/2024 US US OB /MATERNAL DETAIL from 06/23/2024 US OB BIOPHYSICAL PROFILE from 09/19/2024 [facility] OB BIOPHYSICAL PROFILE from 09/26/2024 [facility] OB BIOPHYSICAL PROFILE from 10/01/2024 FINDINGS: Transabdominal sonographic images of the uterus were obtained. From her established due date she is 34weeks 5days. The following parameters are obtained: Viable Fetus in the cephalic presentation with a right lateral placenta grade 2. Placental lakes are seen. The cervix measures 3.58 cm transabdominally. Measurements Amniotic fluid index: 11.02cm, MVP 4.8 cm Qualitative AFV:2 Breathing movements: 2 Gross Body Movements: 2 Tone: 2 Biophysical profile score: 8 No obvious anomalies evident.Kidneys, profile, stomach, bladder, four-chamber heart, three-vessel cord appear normal. IMPRESSION: 1. Viable fetus in the cephalic presentation with a right lateral placenta grade 2. Placental lakes are noted. 2. The fluid is within normal limits with an amniotic fluid index 11.02 cm, MVP 4.8 cm. 3. Biophysical profile is 8/8 with good breathing movement and movement seen. 4. Limited anatomical scan appears normal. Dictated by: Igor Donovan MD 10/03/2024 13:48 Igor Donovan MD in [place] 10/03/2024 13:48
== END 2024-10-03 23:59 | disposition home or self-care (01) ==
LOC: RAD 08:50
PROVIDERS: PCP Obstetrics & Gynecology; Visit Provider Obstetrics & Gynecology
DX: O11.3 Pre-existing hypertension with pre-eclampsia, third trimester (principal); O24.414 Gestational diabetes mellitus in pregnancy, insulin controlled; N96 Recurrent pregnancy loss; Z3A.34 34 weeks gestation of pregnancy
CPT/HCPCS: 76819

== ENCOUNTER 2024-10-04 08:47 | Outpatient (CLI) | payer BC, SELFPAY ==
[2024-10-04 08:58] VITALS: BP 119/71; PULSE 86; RESP 20; TEMP 36.7; O2SAT 98
[2024-10-04] MEDS: IRON SUCROSE COMPLEX 200 MG in 0.9 % SODIUM CHLORIDE 100 ML 220 MG IV (08:58)
[2024-10-04] MEDS: SODIUM CHLORIDE 0.9% 50ML BAG 50 ML IV (08:58)
[2024-10-04] MEDS: SODIUM CHLORIDE 0.9% 10ML FLUSH SYRINGE 10 ML IV (08:58)
[2024-10-04 09:44] VITALS: BP 110/61; PULSE 80; RESP 20; O2SAT 98
== END 2024-10-04 09:44 | disposition home or self-care (01) ==
LOC: INF 08:48
PROVIDERS: Visit Provider Obstetrics & Gynecology
DX: O99.013 Anemia complicating pregnancy, third trimester (principal); Z3A.34 34 weeks gestation of pregnancy
CPT/HCPCS: 96365; J1756

== ENCOUNTER 2024-10-06 08:42 | Outpatient (CLI) | payer BC, SELFPAY ==
[2024-10-06 08:59] LABS: Basophils % 0.4 % (0.1-2.0); Eosinophils # 0.4 Kmm3 (0.0-0.4); Eosinophils % 4.2 % (0.1-12.0); Hematocrit 31.8 % (37.0-47.0); Hemoglobin 9.9 g/dL (12.2-16.2); Lymphocytes # 2.2 K/mm3 (0.7-4.5); Lymphocytes % 20.6 % (10-50); Mean Corpuscular HGB Conc 31.1 g/dL (31.8-35.4); Mean Corpuscular Hemoglobin 24.6 pg (27.0-31.2); Mean Corpuscular Volume 78.9 fl (81-99); Mean Platelet Volume 10.3 fl (7.4-10.4); Monocytes # 0.5 K/mm3 (0.1-1.0); Monocytes % 5.1 % (1.7-9.3); Neutrophils # 7.2 K/mm3 (1.8-7.8); Neutrophils % 68.7 % (37.0-80.0); Nucleated Red Blood Cells # 0 10^3/uL; Nucleated Red Blood Cells % 0 %; Platelet Count 317 K/mm3 (142-424); Red Blood Count 4.03 M/mm3 (4.20-5.40); Red Cell Distribution Width 17.2 % (11.5-17.5); Red Cell Distribution Width-SD 43.8 fL; White Blood Count 10.5 K/mm3 (4.8-10.8)
[2024-10-06 09:17] LABS: Albumin Level 3.4 g/dl (3.5-5.0); Chloride 111 mmol/L (98-107)
[2024-10-06 09:18] LABS: Potassium 4.1 mmoL/L (3.5-5.1); Sodium 134 mmol/L (136-145)
[2024-10-06 09:20] LABS: Alanine Aminotransferase 17 U/L (12-78); Albumin/Globulin Ratio 1.2 (1.1-1.8); Alkaline Phosphatase 141 U/L (38-126); Anion Gap 9.1 mEq/L (5-15); Aspartate Amino Transferase 22 U/L (14-36); Blood Urea Nitrogen 6 mg/dl (7-17); Carbon Dioxide 18 mmol/L (22.0-30.0); Estimated Glomerular Filt Rate 189 ml/min (>60); GFR (African American) 228 ML/MIN (>60); Globulin 2.8 g/dL (1.3-3.2); Total Protein,Serum 6.2 g/dl (6.3-8.2)
[2024-10-06 09:21] LABS: Bilirubin,Total 0.1 mg/dl (0.2-1.3); Calcium 8.7 mg/dl (8.4-10.2); Glucose 115 mg/dl (74-100)
[2024-10-06 09:42] LABS: Uric Acid 3.2 mg/dl (2.5-6.2)
== END 2024-10-06 23:59 | disposition home or self-care (01) ==
PROVIDERS: Visit Provider Obstetrics & Gynecology
DX: O11.9 Pre-existing hypertension with pre-eclampsia, unspecified trimester (principal); Z3A.00 Weeks of gestation of pregnancy not specified
CPT/HCPCS: 36415; 80053; 84550; 85025; 86403

== ENCOUNTER 2024-10-07 19:23 | Outpatient (CLI) | payer BC, SELFPAY ==
[2024-10-07 19:28] VITALS: BP 144/90; PULSE 95; RESP 18; TEMP 37.1; O2SAT 97; BMI 34.6
[2024-10-07 19:46] VITALS: BMI 34.6
[2024-10-07 19:59] LABS: Microscopic, Urine URINE MICROSCOPIC (MICROSCOPIC)
[2024-10-07 20:00] LABS: Appearance,Urine SL CLOUDY (Clear); Bilirubin,Urine Negative (Negative); Blood, Urine Negative (Negative); Color,Urine YELLOW (Yellow); Glucose,Urine (UA) Negative (Negative); Ketones,Urine Negative (Negative); Leukocyte Esterase,Urine 3+ (Negative); Nitrate,Urine Negative (Negative); PH,Urine 6.5 (5.0-8.5); Protein,Urine Negative (Negative); Specific Gravity, Urine 1.015 (1.005-1.030)
[2024-10-07 20:04] VITALS: BP 128/84
[2024-10-07 20:10] LABS: Bacteria,Urine 3+ /lpf; Squamous Epithelial Cell,Urine 20-50 #/hpf (0-5); WBC,Urine TNTC #/hpf (0-3)
== END 2024-10-07 20:13 | disposition home or self-care (01) ==
LOC: OBOUT 19:25 → OB 19:25
PROVIDERS: Visit Provider Nurse Practitioner Obstetrics & Gynecology
DX: O23.43 Unspecified infection of urinary tract in pregnancy, third trimester (principal); O11.3 Pre-existing hypertension with pre-eclampsia, third trimester; O24.414 Gestational diabetes mellitus in pregnancy, insulin controlled; Z3A.35 35 weeks gestation of pregnancy
CPT/HCPCS: 59025; 81001; 87086; G0463

== ENCOUNTER 2024-10-10 10:31 | Outpatient (CLI) | payer BC, SELFPAY ==
[2024-10-10 11:02] LABS: Basophils % 0.2 % (0.1-2.0); Eosinophils # 0.5 Kmm3 (0.0-0.4); Eosinophils % 4.4 % (0.1-12.0); Hematocrit 34.7 % (37.0-47.0); Hemoglobin 10.8 g/dL (12.2-16.2); Immature Granulocytes # 0.07 10^3uL; Immature Granulocytes % 0.7 %; Lymphocytes # 1.9 K/mm3 (0.7-4.5); Lymphocytes % 18.2 % (10-50); Mean Corpuscular HGB Conc 31.1 g/dL (31.8-35.4); Mean Corpuscular Hemoglobin 25.1 pg (27.0-31.2); Mean Corpuscular Volume 80.7 fl (81-99); Mean Platelet Volume 10.1 fl (7.4-10.4); Monocytes # 0.7 K/mm3 (0.1-1.0); Monocytes % 6.6 % (1.7-9.3); Neutrophils # 7.2 K/mm3 (1.8-7.8); Neutrophils % 69.9 % (37.0-80.0); Nucleated Red Blood Cells # 0 10^3/uL; Nucleated Red Blood Cells % 0 %; Platelet Count 312 K/mm3 (142-424); Red Cell Distribution Width 19.2 % (11.5-17.5); Red Cell Distribution Width-SD 49.1 fL; White Blood Count 10.3 K/mm3 (4.8-10.8)
[2024-10-10 12:04] LABS: Alanine Aminotransferase 13 U/L (12-78); Albumin Level 3.4 g/dl (3.5-5.0); Albumin/Globulin Ratio 1.2 (1.1-1.8); Alkaline Phosphatase 135 U/L (38-126); Anion Gap 8.1 mEq/L (5-15); Aspartate Amino Transferase 20 U/L (14-36); Bilirubin,Total 0.3 mg/dl (0.2-1.3); Blood Urea Nitrogen 8 mg/dl (7-17); Calcium 8.7 mg/dl (8.4-10.2); Carbon Dioxide 21 mmol/L (22.0-30.0); Chloride 110 mmol/L (98-107); Estimated Glomerular Filt Rate 146 ml/min (>60); GFR (African American) 177 ML/MIN (>60); Globulin 2.8 g/dL (1.3-3.2); Glucose 97 mg/dl (74-100); Potassium 4.1 mmoL/L (3.5-5.1); Sodium 135 mmol/L (136-145); Total Protein,Serum 6.2 g/dl (6.3-8.2); Uric Acid 3.5 mg/dl (2.5-6.2)
== END 2024-10-10 23:59 | disposition home or self-care (01) ==
LOC: LAB 10:31
PROVIDERS: Visit Provider Obstetrics & Gynecology
DX: O11.9 Pre-existing hypertension with pre-eclampsia, unspecified trimester (principal); Z3A.00 Weeks of gestation of pregnancy not specified
CPT/HCPCS: 36415; 80053; 84550; 85025

== ENCOUNTER 2024-10-11 08:54 | Outpatient (CLI) | payer BC, SELFPAY ==
[2024-10-11 09:00] VITALS: BP 130/85; PULSE 97; RESP 18; O2SAT 100
[2024-10-11] MEDS: 0.9 % SODIUM CHLORIDE 50 ML 200 ML IV (09:08)
[2024-10-11] MEDS: IRON SUCROSE COMPLEX 200 MG in 0.9 % SODIUM CHLORIDE 100 ML 220 MG IV (09:08)
== END 2024-10-11 09:50 | disposition home or self-care (01) ==
LOC: INF 08:55
PROVIDERS: Visit Provider Obstetrics & Gynecology
DX: O99.013 Anemia complicating pregnancy, third trimester (principal); Z3A.35 35 weeks gestation of pregnancy
CPT/HCPCS: 96365; J1756

== ENCOUNTER 2024-10-13 12:45 | Outpatient (CLI) | payer BC, SELFPAY ==
--- NOTE | 2024-10-13 13:00 | US_ITS ---
PROCEDURE: US OB BIOPHYSICAL PROFILE CLINICAL INDICATION: Chronic HTN and GDM COMPARISON: US US OB <= 14 WEEKS FETUS from 03/20/2024 US OB /MATERNAL DETAIL from 06/23/2024 US OB BIOPHYSICAL PROFILE from 09/19/2024 US OB BIOPHYSICAL PROFILE from 09/26/2024 US OB BIOPHYSICAL PROFILE from 10/01/2024 [facility] OB BIOPHYSICAL PROFILE from 10/03/2024 FINDINGS: Transabdominal sonographic images of the uterus were obtained. From her established due date she is 36weeks 1day. The following parameters are obtained: Viable Fetus in the cephalic presentation with a right lateral placenta grade 2-3. Average ultrasound age is 38weeks 0 days Estimated weight 3,318g, 7 lb 5 oz Cervix measures 2.91 cm. Measurements: heart Rate = 140bpm BPD = 38weeks 0 days, 94 percentile HC = 38weeks 2days, 71 percentile AC = 37weeks 5days, 93 percentile FL = 37weeks 6days, 85 percentile HC/AC is 0.99 FL/BPD is 0.79 FL/AC is 0.22 91 percentile Amniotic fluid index: 14.62cm, MVP 5.01 cm. Qualitative AFV:2 Breathing movements: 2 Gross Body Movements: 2 Tone: 2 Biophysical profile score: 8 No obvious anomalies evident.Profile, kidneys, stomach, bladder, four-chamber heart, three-vessel cord appear normal. IMPRESSION: 1. Viable fetus in the cephalic presentation with a right lateral placenta grade 2-3. 2. The fluid is within normal limits with an amniotic fluid index 14.62 cm, MVP 5.01 cm. 3. Biophysical profile is 8/8 with good breathing movement and movement seen. 4. There continues to be accelerated growth with the fetus currently 2 weeks ahead on its growth. 5. The abdominal circumference is 10 days ahead on its growth. 6. Limited anatomical scan appears normal. Dictated by: Igor Donovan MD 10/14/2024 04:18 Igor Donovan MD in [place] 10/14/2024 04:18
== END 2024-10-13 23:59 | disposition home or self-care (01) ==
LOC: RAD 12:46
PROVIDERS: PCP Obstetrics & Gynecology; Visit Provider Obstetrics & Gynecology
DX: O26.23 Pregnancy care for patient with recurrent pregnancy loss, third trimester (principal); O24.419 Gestational diabetes mellitus in pregnancy, unspecified control; O11.3 Pre-existing hypertension with pre-eclampsia, third trimester; O36.63X0 Maternal care for excessive fetal growth, third trimester, not applicable or unspecified; Z3A.36 36 weeks gestation of pregnancy
CPT/HCPCS: 76816; 76819

== ENCOUNTER 2024-10-17 10:36 | Outpatient (CLI) | payer BC, SELFPAY ==
[2024-10-17] VITALS (8 sets, daily range): BP systolic 115–143; BP diastolic 77–95; PULSE 96; RESP 16; TEMP 36.6; O2SAT 95; BMI 34.9
--- NOTE | 2024-10-17 10:43 | US_ITS ---
PROCEDURE INFORMATION: Exam: US Biophysical Profile Without Non-Stress Test Exam date and time: 10/17/2024 11:11 AM Age: 29 years old Clinical indication: Other: Non reactive nst; ; Additional info: Non reactive nst in office TECHNIQUE: Imaging protocol: US biophysical profile without non-stress testing. COMPARISON: US OB BIOPHYSICAL PROFILE 10/13/2024 12:45 PM FINDINGS: heart rate: 147 bpm Amniotic fluid index: MICHAEL is 8.02 cm. BIOPHYSICAL PROFILE: breathing (BPP): 2 /2 gross body movement (BPP): 2 /2 tone (BPP): 2 /2 Amniotic fluid (BPP): 2 /2 Biophysical profile score (BPP): 8 /8 MATERNAL ANATOMY: Cervix: Cervical length measures 2.46 cm. IMPRESSION: Normal biophysical profile
[2024-10-17 11:03] LABS: Basophils % 0.3 % (0.1-2.0); Eosinophils # 0.1 Kmm3 (0.0-0.4); Eosinophils % 0.7 % (0.1-12.0); Hematocrit 32.6 % (37.0-47.0); Hemoglobin 10.2 g/dL (12.2-16.2); Immature Granulocytes # 0.09 10^3uL; Immature Granulocytes % 0.7 %; Lymphocytes # 1.4 K/mm3 (0.7-4.5); Lymphocytes % 10.3 % (10-50); Mean Corpuscular HGB Conc 31.3 g/dL (31.8-35.4); Mean Corpuscular Hemoglobin 25.4 pg (27.0-31.2); Mean Corpuscular Volume 81.1 fl (81-99); Mean Platelet Volume 9.8 fl (7.4-10.4); Monocytes # 0.7 K/mm3 (0.1-1.0); Monocytes % 5.3 % (1.7-9.3); Neutrophils # 10.9 K/mm3 (1.8-7.8); Neutrophils % 82.7 % (37.0-80.0); Nucleated Red Blood Cells # 0 10^3/uL; Nucleated Red Blood Cells % 0 %; Platelet Count 247 K/mm3 (142-424); Red Blood Count 4.02 M/mm3 (4.20-5.40); Red Cell Distribution Width 20.8 % (11.5-17.5); Red Cell Distribution Width-SD 59.4 fL; White Blood Count 13.2 K/mm3 (4.8-10.8)
[2024-10-17 11:15] LABS: Chloride 110 mmol/L (98-107); Potassium 3.8 mmoL/L (3.5-5.1); Sodium 134 mmol/L (136-145)
[2024-10-17 11:18] LABS: Alanine Aminotransferase 14 U/L (12-78); Alkaline Phosphatase 157 U/L (38-126); Anion Gap 10.8 mEq/L (5-15); Aspartate Amino Transferase 22 U/L (14-36); Bilirubin,Total 0.4 mg/dl (0.2-1.3); Blood Urea Nitrogen 5 mg/dl (7-17); Calcium 8.9 mg/dl (8.4-10.2); Carbon Dioxide 17 mmol/L (22.0-30.0); Creatinine Clearance Estimated 312 mL/min (50-200); Estimated Glomerular Filt Rate 189 ml/min (>60); GFR (African American) 228 ML/MIN (>60); Glucose 124 mg/dl (74-100); Total Protein,Serum 6.7 g/dl (6.3-8.2)
[2024-10-17 13:20] LABS: Albumin Level 3.6 g/dl (3.5-5.0); Albumin/Globulin Ratio 1.2 (1.1-1.8); Globulin 3.1 g/dL (1.3-3.2)
== END 2024-10-17 12:35 | disposition home or self-care (01) ==
LOC: OBOUT 10:37 → OB 10:38
PROVIDERS: Visit Provider Obstetrics & Gynecology
DX: O28.8 Other abnormal findings on antenatal screening of mother (principal); O11.3 Pre-existing hypertension with pre-eclampsia, third trimester; O24.414 Gestational diabetes mellitus in pregnancy, insulin controlled; Z3A.36 36 weeks gestation of pregnancy
CPT/HCPCS: 36415; 59025; 76819; 80053; 84550; 85025; G0463

== ENCOUNTER 2024-10-18 08:54 | Outpatient (CLI) | payer BC, SELFPAY ==
[2024-10-18 09:10] VITALS: BP 124/79; PULSE 92; RESP 17; O2SAT 97
[2024-10-18] MEDS: IRON SUCROSE COMPLEX 200 MG in 0.9 % SODIUM CHLORIDE 100 ML 220 MG IV (09:10)
[2024-10-18] MEDS: SODIUM CHLORIDE 0.9% 50ML BAG 50 ML IV (09:10)
[2024-10-18 09:45] VITALS: BP 132/81; PULSE 92; RESP 16
== END 2024-10-18 10:00 | disposition home or self-care (01) ==
LOC: INF 08:55
PROVIDERS: Visit Provider Obstetrics & Gynecology
DX: O99.013 Anemia complicating pregnancy, third trimester (principal); Z3A.36 36 weeks gestation of pregnancy
CPT/HCPCS: 96365; J1756

== ENCOUNTER 2024-10-20 04:01 | Inpatient (IN) | payer BC, SELFPAY ==
[2024-10-20 04:03] VITALS: BMI 34.9
[2024-10-20 04:20] VITALS: BP 121/74; PULSE 109; RESP 17; TEMP 37; O2SAT 98; BMI 34.9
[2024-10-20 04:50] LABS: Microscopic, Urine URINE MICROSCOPIC (MICROSCOPIC)
[2024-10-20 04:54] LABS: Bilirubin,Urine Negative (Negative); Blood, Urine Negative (Negative); Glucose,Urine (UA) Negative (Negative); Ketones,Urine Negative (Negative); Leukocyte Esterase,Urine 1+ (Negative); Nitrate,Urine Negative (Negative); Protein,Urine Negative (Negative); Specific Gravity, Urine 1.025 (1.005-1.030)
[2024-10-20 04:55] LABS: Basophils # 0.1 K/mm3 (0-0.2); Basophils % 0.4 % (0.1-2.0); Eosinophils # 0.2 Kmm3 (0.0-0.4); Eosinophils % 1.5 % (0.1-12.0); Hematocrit 33.8 % (37.0-47.0); Hemoglobin 10.9 g/dL (12.2-16.2); Immature Granulocytes # 0.08 10^3uL; Immature Granulocytes % 0.6 %; Lymphocytes # 1.7 K/mm3 (0.7-4.5); Lymphocytes % 13.4 % (10-50); Mean Corpuscular HGB Conc 32.2 g/dL (31.8-35.4); Mean Corpuscular Hemoglobin 25.8 pg (27.0-31.2); Mean Corpuscular Volume 80.1 fl (81-99); Mean Platelet Volume 9.9 fl (7.4-10.4); Monocytes # 0.9 K/mm3 (0.1-1.0); Monocytes % 6.6 % (1.7-9.3); Neutrophils % 77.5 % (37.0-80.0); Nucleated Red Blood Cells # 0 10^3/uL; Nucleated Red Blood Cells % 0 %; Platelet Count 315 K/mm3 (142-424); Red Blood Count 4.22 M/mm3 (4.20-5.40); Red Cell Distribution Width 20.8 % (11.5-17.5); Red Cell Distribution Width-SD 58.3 fL; White Blood Count 12.9 K/mm3 (4.8-10.8)
[2024-10-20 05:00] LABS: Appearance,Urine Slightly Cloudy (Clear); Color,Urine Dark Yellow (Yellow)
[2024-10-20 05:03] LABS: Albumin Level 3.6 g/dl (3.5-5.0); Chloride 107 mmol/L (98-107); Potassium 3.6 mmoL/L (3.5-5.1); Sodium 136 mmol/L (136-145)
[2024-10-20 05:04] LABS: Bacteria,Urine 1+ /lpf; Mucus,Urine 1+ /lpf
[2024-10-20] MEDS: DEXTROSE 5%-LACTATED RINGERS 1,000 ML 125 ML IV ×2 (05:04→12:45)
[2024-10-20 05:06] LABS: Alanine Aminotransferase 12 U/L (12-78); Albumin/Globulin Ratio 1.1 (1.1-1.8); Alkaline Phosphatase 175 U/L (38-126); Anion Gap 13.6 mEq/L (5-15); Aspartate Amino Transferase 17 U/L (14-36); Bilirubin,Total 0.2 mg/dl (0.2-1.3); Blood Urea Nitrogen 10 mg/dl (7-17); Calcium 8.8 mg/dl (8.4-10.2); Carbon Dioxide 19 mmol/L (22.0-30.0); Creatinine Clearance Estimated 250 mL/min (50-200); Estimated Glomerular Filt Rate 146 ml/min (>60); GFR (African American) 177 ML/MIN (>60); Globulin 3.4 g/dL (1.3-3.2); Glucose 123 mg/dl (74-100)
[2024-10-20] MEDS: OXYTOCIN/RINGERS LACTATE 30 UNITS/500 ML BAG IV (05:06)
[2024-10-20] MEDS: ACETAMINOPHEN 500MG TAB 1000 MG PO ×3 (07:23→22:48)
--- NOTE | 2024-10-20 09:13 | EXP.HP ---
History of Present Illness *Admission Date: 10/20/24 *Reason for visit:: Induction *History of present illness: Tobin Gonzalez is a 29-year-old at 37 weeks and 1 days gestation who presented to labor and delivery for medically indicated induction of labor. Her has been chronic hypertension with superimposed preeclampsia, gestational diabetes, obesity, and history of recurrent loss. This she has taken aspirin, insulin glargine at 20 units at night, labetalol 200 mg twice daily, and a vitamin. On presentation patient endorsed good movement and denies any leakage of fluid or vaginal bleeding. O+, antibody negative, rubella immune, hepatitis B negative, hepatitis C negative, RPR negative, HIV negative 1 hour GTT: 154 3-hour GTT: 98/195/154/117 GBS negative PFSH PFS Disclaimer: The information contained in this section may have been updated after the patient was seen, as this information can be updated by other users. Medical History Vaginal bleeding affecting early History of miscarriage Surgical History [place] teeth extracted History of ankle surgery Family History Other No significant family history Social History Smoking Status: Never smoker alcohol intake: never substance use type: denies use current occupational status: unemployed Travel in the last 8 weeks?: None Have you lived/traveled outside US in past 30 days?: No Contact w/someone who lives/traveled outside US past 30 days?: No Exposure to someone with infectious disease in past 14 days?: No Do you have a fever (greater than 100.4 F or 38 C)?: No Have you tested positive for COVID-19?: No Exposed to someone with COVID-19 in past 14 days?: No Do you have a sore throat?: No Do you have a cough?: Yes Do you have any weakness?: No Are you experiencing any nausea/vomitting?: No Do you have any diarrhea?: No Are you experiencing any unusual bleeding?: No Do you have any muscle aches/pain?: No Do you have any abdominal pain?: No Are you experiencing loss of taste or smell?: No Other Medical History Have you received the Flu Vaccine for this season: No Have you received the Pneumonia Vaccine: No Review of Systems Review of Systems Review of systems (narrative): Review of Systems Constitutional: Denies fever, chills, and sweats Eyes: Denies vision change/ pain Respiratory: Denies cough and shortness of breath Cardiovascular: Denies chest pain and lightheadedness Gastrointestinal: Admits abdominal pain with contractions. Denies nausea, vomiting. Genitourinary: Denies dysuria and incontinence Musculoskeletal: Denies shoulder pain and back pain Neurological: Denies change in speech or headaches Meds Home Medications and Allergies Home Medications ?Medication ?Instructions ?Recorded ?Confirmed ?Type vits no.126-ferrous fum 1 tab PO DAILY 03/24/24 10/20/24 History 28 mg iron-folic acid 800 mcg tablet (Classic ) aspirin 81 mg tablet,delayed 81 mg PO BID 04/21/24 10/20/24 History release insulin glargine-yfgn 100 unit/mL 8 unit SQ HS 09/05/24 10/20/24 History (3 mL) subcutaneous pen (Semglee (insulin glargine-yfgn) Pen) labetalol 200 mg tablet 200 mg PO BID #60 tabs 09/22/24 10/20/24 Rx New Prescriptions to Start Prescriptions: Allergies Allergy/AdvReac Type Severity Reaction Status Date / Time amoxicillin Allergy Mild Hives Verified 10/20/24 04:42 Exam Data for Last 24 hours Vital signs and Labs for Last 24 Hours: Temp Pulse Resp BP Pulse Ox O2 Del Method 98.6 F 109 H 17 121/74 98 Room Air 10/20/24 04:20 10/20/24 04:20 10/20/24 04:20 10/20/24 04:20 10/20/24 04:20 10/20/24 04:20 Laboratory Results - last 24 hr 10/20/24 04:23: WBC 12.9 H, RBC 4.22, Hgb 10.9 L, Hct 33.8 L, MCV 80.1 L, MCH 25.8 L, MCHC 32.2, RDW 20.8 H, Plt Count 315 D, MPV 9.9, Neut % (Auto) 77.5, Lymph % (Auto) 13.4, [place] % (Auto) 6.6, Eos % (Auto) 1.5, Baso % (Auto) 0.4, Neut # (Auto) 10.0 H, Lymph # (Auto) 1.7, [place] # (Auto) 0.9, Eos # (Auto) 0.2, Baso # (Auto) 0.1, Sodium 136, Potassium 3.6, Chloride 107, Carbon Dioxide 19 L, Anion Gap 13.6, BUN 10 D, Creatinine 0.50 L D, Estimated Creat Clear 250, Estimated GFR 146, Est GFR ( Amer) 177 D, Glucose 123 H, Calcium 8.8, Total Bilirubin 0.2, AST 17, ALT 12, Alkaline Phosphatase 175 H, Total Protein 7.0, Albumin 3.6, Globulin 3.4 H, Albumin/Globulin Ratio 1.1, Urine Color Dark yellow, Urine Appearance Slightly cloudy, Urine pH 6.0, Ur Specific [place] 1.025, Urine Protein Negative, Urine Glucose (UA) Negative, Urine Ketones Negative, Urine Blood Negative, Urine Nitrate Negative, Urine Bilirubin Negative, Urine Urobilinogen 4.0, Ur Leukocyte Esterase 1+ A, Urine RBC 3-5, Urine WBC 5-10, Ur Squamous Epith Cells 5-10, Urine Bacteria 1+, Urine Mucus 1+, Blood Type O Positive, Antibody Screen Negative I & O for Last 24 hours: Intake & Output 10/17/24 10/18/24 10/19/24 10/20/24 23:59 23:59 23:59 23:59 Weight 209 lb 15.986 oz Narrative: General: patient is alert oriented in no acute distress and responds appropriately to questions. HEENT: NCAT, EOMI, moist mucous membranes, neck supple with full ROM Cardiovascular: RRR +S1/S2, no murmurs or rubs Pulmonary: Clear to auscultation bilaterally, nonlabored breathing, symmetric chest rise Abdominal: Gravid abdomen appropriate for gestation. No guarding, rebound, or tenderness noted. Extremities: trace edema, no tenderness or cyanosis noted Skin: Normal turgor, intact, warm. Negative for erythema, pallor, petechia, or lesions Neurologic: Negative for sensory or motor deficit Psychiatric: Normal affect, normal thought process, good judgment and insight, no depression or anxious mood appreciated. *Routine HEENT Exam Head: Present normocephalic and atraumatic Eye: Present EOMI, PERRL and normal accommodation; Absent conjunctival icterus, scleral injection, nystagmus or exophthalmos ENT: Present mucous membranes moist *Routine Respiratory Exam Respiratory: Present CTA bilaterally, normal respiratory effort, able to speak in complete sentences and symmetric chest movement; Absent accessory muscle use, decreased breath sounds, rales, respiratory distress, wheezes, distant breath sounds or diminished air movement *Routine Cardiovascular Exam Cardiovascular: Present RRR, Normal S1 and Normal S2; Absent murmur or gallop *Routine Abdominal Exam Abdominal: Present soft and normoactive bowel sounds; Absent tenderness, distended, rebound or guarding *Routine Rectal Exam Rectal:: deferred *Routine Genitalia Exam Genitalia:: normal female Assessment and Plan *Assessment and plan (1) Chronic hypertension with superimposed preeclampsia: Status: Acute Category: Medical Code(s): O11.9 - Pre-existing hypertension with pre-eclampsia, unspecified trimester (2) Preeclampsia: Status: Acute Qualifiers: Trimester: third trimester Qualified Code(s): O14.93 - Unspecified pre-eclampsia, third trimester Category: Medical Code(s): O14.90 - Unspecified pre-eclampsia, unspecified trimester (3) Gestational diabetes: Status: Acute Qualifiers: Gestational diabetes mellitus control: insulin-controlled Trimester: third trimester Qualified Code(s): O24.414 - Gestational diabetes mellitus in , insulin controlled Category: Medical Code(s): O24.419 - Gestational diabetes mellitus in , unspecified control (4) History of recurrent miscarriages: Status: Acute Category: Medical Code(s): N96 - Recurrent loss (5) Obesity (BMI 30.0-34.9): Status: Acute Category: Medical Code(s): E66.811 - Obesity, class 1 (6) Hypertension affecting : Status: Acute Qualifiers: Trimester: first trimester Qualified Code(s): O16.1 - Unspecified maternal hypertension, first trimester Category: Medical Code(s): O16.9 - Unspecified maternal hypertension, unspecified trimester (7) Encounter for induction of labor: Status: Acute Category: Medical Code(s): Z34.90 - Encounter for supervision of normal , unspecified, unspecified trimester Plan #37 weeks gestation #Induction of labor - Monitor vitals - Admit to L&D for induction of labor - Plan for induction with Pitocin, per protocol - External FHR and TOCO monitor - Exam on admission: 4+/80/-2 - GBS neg/ Blood type: O+ - Hemoglobin: 10.9, Plt: 315 - Plan for epidural anesthesia - Anticipate vaginal delivery of male : Federico Michael Gonzalez Junior (CJ) #Chronic hypertension with superimposed preeclampsia - PIH labs within normal limits - Blood pressure is within normal limits - Continue blood pressure medicine - Continue monitoring closely - Serial labs will be collected every day unless indicated that it is closer to normal frequency #Gestational diabetes - We will complete a 6-week 2-hour GTT - Currently taking insulin glargine at 18 units at night. This will be discontinued - She will have a day 1 fasting insulin check - Glucose will be checked to 2 hours in active labor and at the time of pushing
[2024-10-20] MEDS: LACTATED RINGERS 1000ML 1,000 ML 999 ML IV (09:53)
--- NOTE | 2024-10-20 10:28 | EXP.ANES.CKL ---
[facility] Disclaimer: The information contained in this section may have been updated after the patient was seen, as this information can be updated by other users. Medical History Vaginal bleeding affecting early History of miscarriage Surgical History [place] teeth extracted History of ankle surgery Family History Other No significant family history Social History Smoking Status: Never smoker alcohol intake: never substance use type: denies use current occupational status: unemployed Travel in the last 8 weeks?: None Have you lived/traveled outside US in past 30 days?: No Contact w/someone who lives/traveled outside US past 30 days?: No Exposure to someone with infectious disease in past 14 days?: No Do you have a fever (greater than 100.4 F or 38 C)?: No Have you tested positive for COVID-19?: No Exposed to someone with COVID-19 in past 14 days?: No Do you have a sore throat?: No Do you have a cough?: Yes Do you have any weakness?: No Are you experiencing any nausea/vomitting?: No Do you have any diarrhea?: No Are you experiencing any unusual bleeding?: No Do you have any muscle aches/pain?: No Do you have any abdominal pain?: No Are you experiencing loss of taste or smell?: No [facility] Anesthesia Checklist Patient Identification Patient Identification: Verbal (Name & ) Structural Data Admitted From: Inpatient Planned Operative Procedure/s: labor epidural Consent for Planned Operative Procedure(s) Verified: Yes Airway Assessment Mallampati Score:: Class II C-Spine Mobility Assessed: Yes TMJ Mobility Assessed: Yes Dentition: Good Dentition Neurological Assessment Level of Consciousness: Awake, Alert and Appropriate Anesthesia Plan Anesthesia Risk discussed: Yes Anesthesia Plan: Verified ASA Class: II Anesthesia Type: Epidural
[2024-10-20 11:56] LABS: POC Glucose,Bedside 122 (70-110)
[2024-10-20 12:26] LABS: Microscopic, Urine URINE MICROSCOPIC (MICROSCOPIC)
[2024-10-20 12:28] LABS: Appearance,Urine CLEAR (Clear); Bilirubin,Urine Negative (Negative); Blood, Urine Negative (Negative); Color,Urine YELLOW (Yellow); Glucose,Urine (UA) Negative (Negative); Ketones,Urine Negative (Negative); Leukocyte Esterase,Urine Negative (Negative); Nitrate,Urine Negative (Negative); PH,Urine 6.5 (5.0-8.5); Protein,Urine Negative (Negative); Specific Gravity, Urine <= 1.005 (1.005-1.030)
[2024-10-20 14:17] LABS: POC Glucose,Bedside 103 (70-110)
[2024-10-20] MEDS: OXYTOCIN/RINGERS LACTATE 30 UNITS/500 ML BAG 40 UNITS IV (14:44)
--- NOTE | 2024-10-20 15:10 | EXP.DN ---
Delivery Note Delivery Date:: 10/20/24 Delivery Time:: 14:27 Anesthesia Type: Epidural Was labor medically induced?: Yes Induction method: per pitocin protocol Gestational age (weeks): 37 delivered prior to 39 weeks?: Yes Justification for early elective delivery:: Gestational Diabetes and Pre-eclampsia Infant Gender: Male at 1 minute: 8 at 5 minutes: 9 Delivery Procedure:: Preoperative diagnosis: 1. -0-3-1 at 37 completed this weeks gestation, vertex 2. Rh positive 3. GBS negative 4. Chronic hypertension with superimposed preeclampsia 5. Gestational diabetes 6. Obesity 7. History of recurrent loss Postoperative diagnosis: 1. -0-3-1 at 37 completed this weeks gestation, vertex 2. Rh positive 3. GBS negative 4. Chronic hypertension with superimposed preeclampsia 5. Gestational diabetes 6. Obesity 7. History of recurrent loss EBL: 100mL Specimen: 1. Cord blood 2. Placenta Findings: 1. Liveborn viable male : Federico Gonzalez Junior (CJ). Apgars 8/9 at 1 and 5 minutes respectively. Weight pending at time of dictation 2. 2nd degree midline perineal laceration Complications: None Procedure: Nonoperative spontaneous vaginal delivery Tobin was brought in this morning for induction. She received pitocin and AROM, clear fluid. She received an epidural for anesthesia. She progressed to complete. The infant was noted to be in KRIS position. With effective maternal pushing there was a nonoperative spontaneous vaginal delivery at 1427. There was a nuchal cord x1 that was reduced without difficulty. The anterior left shoulder delivered, followed by the posterior shoulder without dystocia. The body and lower extremities delivered without difficulty. The infant was bulb suctioned and was crying immediately following delivery. The infant was placed on the maternal abdomen and greater than one minute was appreciated for delayed cord clamping. The umbilical cord was doubly clamped and cut. Cord blood was collected and sent for routine testing. The placenta delivered with cord traction and suprapubic contertraction. Pitocin was started. The uterus was firm and bleeding was minimal. The perineum, vaginal kern, cervix, and paraurethral area were inspected thoroughly. There was a second-degree midline perineal laceration. The laceration was repaired in the usual fashion using 2-0 Vicryl suture. The laceration was hemostatic. The cervix and vaginal kern were inspected and noted to be hemostatic. This concluded the delivery. The patient was counseled regarding the events of the delivery and repair. The patient tolerated the delivery well. All counts were correct by nursing. Mother and infant were doing well and bonding upon my leaving the delivery room. Laceration:: vaginal Placental Delivery Description: Spontaneous
[2024-10-20 15:36] LABS: Bacteria,Urine Trace /lpf; Squamous Epithelial Cell,Urine Occasional #/hpf (0-5)
[2024-10-20] MEDS: IBUPROFEN 400 MG TABLET 800 MG PO (15:39)
[2024-10-20 16:09] LABS: RPR W/RFX Titers Nonreactive (Nonreactive)
[2024-10-20] MEDS: PRENATAL MULTIVITAMIN W/IRON 1 EACH PO (16:59)
[2024-10-20] MEDS: LABETALOL 100MG TABLET 200 MG PO (20:07)
[2024-10-20] MEDS: BENZOCAINE-MENTHOL SPRAY 56GM CAN TP (20:13)
[2024-10-21] MEDS: IBUPROFEN 400 MG TABLET 800 MG PO (01:50)
[2024-10-21] MEDS: ACETAMINOPHEN 500MG TAB 1000 MG PO ×3 (04:26→20:15)
[2024-10-21 07:02] LABS: Basophils # 0.1 K/mm3 (0-0.2); Basophils % 0.4 % (0.1-2.0); Eosinophils # 0.2 Kmm3 (0.0-0.4); Eosinophils % 1.3 % (0.1-12.0); Hematocrit 31.9 % (37.0-47.0); Hemoglobin 9.9 g/dL (12.2-16.2); Immature Granulocytes # 0.07 10^3uL; Immature Granulocytes % 0.6 %; Lymphocytes # 1.7 K/mm3 (0.7-4.5); Lymphocytes % 13.7 % (10-50); Mean Corpuscular Hemoglobin 25.3 pg (27.0-31.2); Mean Corpuscular Volume 81.6 fl (81-99); Mean Platelet Volume 9.8 fl (7.4-10.4); Monocytes # 0.9 K/mm3 (0.1-1.0); Monocytes % 7.3 % (1.7-9.3); Neutrophils # 9.2 K/mm3 (1.8-7.8); Neutrophils % 76.7 % (37.0-80.0); Nucleated Red Blood Cells # 0 10^3/uL; Nucleated Red Blood Cells % 0 %; Platelet Count 254 K/mm3 (142-424); Red Blood Count 3.91 M/mm3 (4.20-5.40); Red Cell Distribution Width 21.1 % (11.5-17.5); Red Cell Distribution Width-SD 61.1 fL
[2024-10-21] MEDS: LABETALOL 100MG TABLET 200 MG PO ×2 (08:27→20:14)
[2024-10-21 08:31] VITALS: BP 132/80; PULSE 100; RESP 18; TEMP 36.7; O2SAT 98
--- NOTE | 2024-10-21 10:44 | EXP.PN ---
Subjective *Date: 10/21/24 *Time: 10:44 Interval history: Tobin Gonzalez is a 29-year-old G5, P2 day #1 following a normal spontaneous vaginal delivery at 37 weeks gestation secondary to CHTN with GRAZYNA, obesity, and GDMA2. Routine delivery and course. She is doing well, sitting up in bed. Her induction and course has been complicated by viral upper respiratory infection -Reports pain is well-controlled -Reports she is tolerating p.o. without nausea or vomiting. -Reports her lochia is scant. - Undecided for contraception -She is breast-feeding her male -Ambulating, voiding difficulty or dysuria. Denies chest pain shortness of breath or pain in her legs. No further complaints at this time. Exam Data for Last 24 hours Vital signs and Labs for Last 24 Hours: Temp Pulse Resp BP Pulse Ox O2 Del Method 98.0 F 100 H 18 132/80 98 Room Air 10/21/24 08:31 10/21/24 08:31 10/21/24 08:31 10/21/24 08:31 10/21/24 08:31 10/21/24 08:31 Laboratory Results - last 24 hr 10/20/24 04:23: RPR w/Rflx to Titer Nonreactive 10/20/24 11:49: POC Glucose 122 H 10/20/24 12:12: Urine Color Yellow, Urine Appearance Clear, Urine pH 6.5, Ur Specific [place] <= 1.005, Urine Protein Negative, Urine Glucose (UA) Negative, Urine Ketones Negative, Urine Blood Negative, Urine Nitrate Negative, Urine Bilirubin Negative, Urine Urobilinogen 1.0, Ur Leukocyte Esterase Negative, Urine RBC None, Urine WBC None, Ur Squamous Epith Cells Occasional, Urine Bacteria Trace 10/20/24 13:58: POC Glucose 103 10/21/24 06:38: WBC 12.0 H, RBC 3.91 L, Hgb 9.9 L, Hct 31.9 L, MCV 81.6, MCH 25.3 L, MCHC 31.0 L, RDW 21.1 H, Plt Count 254, MPV 9.8, Neut % (Auto) 76.7, Lymph % (Auto) 13.7, [place] % (Auto) 7.3, Eos % (Auto) 1.3, Baso % (Auto) 0.4, Neut # (Auto) 9.2 H, Lymph # (Auto) 1.7, [place] # (Auto) 0.9, Eos # (Auto) 0.2, Baso # (Auto) 0.1 I & O for Last 24 hours: Intake & Output 10/18/24 10/19/24 10/20/24 10/21/24 23:59 23:59 23:59 23:59 Weight 209 lb 15.986 oz Microbiology Reports for the Last 24 Hours: Microbiology 10/20/24 04:23 Urine,Clean Catch Urine Culture - Preliminary Narrative: General: patient is alert oriented in no acute distress and responds appropriately to questions. Appears to be in minimal pain. HEENT: NCAT, EOMI, moist mucous membranes, neck supple with full ROM Cardiovascular: RRR +S1/S2, no murmurs or rubs Pulmonary: Clear to auscultation bilaterally, nonlabored breathing, symmetric chest rise Abdominal: Fundus below the umbilicus, firm, and tenderness appropriate for the period. Extremities: trace edema, no tenderness or cyanosis noted Skin: Normal turgor, intact, warm. Negative for erythema, pallor, petechia, or lesions Neurologic: Negative for sensory or motor deficit Psychiatric: Normal affect, normal thought process, good judgment and insight, no depression or anxious mood appreciated. Assessment and Plan *Assessment and plan (1) Encounter for induction of labor: Status: Acute Category: Medical Code(s): Z34.90 - Encounter for supervision of normal , unspecified, unspecified trimester (2) Chronic hypertension with superimposed preeclampsia: Status: Acute Category: Medical Code(s): O11.9 - Pre-existing hypertension with pre-eclampsia, unspecified trimester (3) Gestational diabetes: Status: Acute Qualifiers: Gestational diabetes mellitus control: insulin-controlled Trimester: third trimester Qualified Code(s): O24.414 - Gestational diabetes mellitus in , insulin controlled Category: Medical Code(s): O24.419 - Gestational diabetes mellitus in , unspecified control (4) History of recurrent miscarriages: Status: Acute Category: Medical Code(s): N96 - Recurrent loss (5) Obesity (BMI 30.0-34.9): Status: Acute Category: Medical Code(s): E66.811 - Obesity, class 1 (6) (normal spontaneous vaginal delivery): Status: Acute Category: Medical Code(s): O80 - Encounter for full-term uncomplicated delivery (7) Anemia affecting : Status: Acute Category: Medical Code(s): O99.019 - Anemia complicating , unspecified trimester Plan Stable. PPD#1 s/p -second degree. -Doing well. VSS. Serial lochia and fundal checks. -Continue with perineal ice packs for discomfort -Hemoglobin: 10.9--> 9.9 - asymptomatic anemia noted. Vitals stable. Continue monitoring. DC with Fe -O+/antibody negative -, male infant -Desires circumcision, consents signed and risks reviewed -Contraception: undecided -Follow-up 1 weeks for routine visit and BP check -Dispo: home in 1-3 days pending mother/infant status #Chronic hypertension with superimposed preeclampsia - PIH labs within normal limits - Blood pressure is within normal limits - Continue blood pressure medicine - Continue monitoring closely - Serial labs will be collected every day unless indicated more frequently #Gestational diabetes - We will complete a 6-week 2-hour GTT - Currently taking insulin glargine at 18 units at night. This will be discontinued - She will have a day 1 fasting glucose check - Glucose will be checked to 2 hours in active labor and at the time of pushing - Glucose was 103 within the hour of delivery ([id number])
[2024-10-21 11:11] LABS: Chloride 113 mmol/L (98-107); Sodium 137 mmol/L (136-145)
[2024-10-21 11:14] LABS: Alanine Aminotransferase 11 U/L (12-78); Albumin/Globulin Ratio 0.9 (1.1-1.8); Alkaline Phosphatase 149 U/L (38-126); Aspartate Amino Transferase 21 U/L (14-36); Bilirubin,Total 0.4 mg/dl (0.2-1.3); Blood Urea Nitrogen 7 mg/dl (7-17); Carbon Dioxide 21 mmol/L (22.0-30.0); Creatinine Clearance Estimated 312 mL/min (50-200); Estimated Glomerular Filt Rate 189 ml/min (>60); GFR (African American) 228 ML/MIN (>60); Globulin 3.3 g/dL (1.3-3.2); Total Protein,Serum 6.3 g/dl (6.3-8.2)
[2024-10-21 11:15] LABS: Calcium 8.3 mg/dl (8.4-10.2); Glucose 81 mg/dl (74-100)
[2024-10-21] MEDS: PRENATAL MULTIVITAMIN W/IRON 1 EACH PO (16:16)
[2024-10-21 20:10] VITALS: BP 123/75; PULSE 88; RESP 18; TEMP 36.9; O2SAT 99
[2024-10-21] MEDS: SENNA 8.6MG TABLET 8.6 MG PO (20:14)
[2024-10-21 20:55] LABS: Adenovirus,PCR Not Detected (NotDetected); Bordetella Pertussis Not Detected (NotDetected); Chlamydophila Pneumoniae, PCR Not Detected (NotDetected); Coronavirus 19, PCR Not Detected (NotDetected); Coronavirus 229E Not Detected (NotDetected); Coronavirus NL63 Not Detected (NotDetected); Coronavirus OC43 Not Detected (NotDetected); Coronovirus HKU1,PCR Not Detected (NotDetected); Human Metapneumovirus Not Detected (NotDetected); Influenza A, PCR Not Detected (NotDetected); Influenza AH1, 2009 Not Detected (NotDetected); Influenza AH1, PCR Not Detected (NotDetected); Influenza AH3,PCR Not Detected (NotDetected); Influenza B, PCR Not Detected (NotDetected); Mycoplasma Pneumoniae, PCR Not Detected (NotDetected); Parainfluenza 1, PCR Not Detected (NotDetected); Parainfluenza 2, PCR Not Detected (NotDetected); Parainfluenza 3, PCR Not Detected (NotDetected); Parainfluenza 4, PCR Not Detected (NotDetected); Respiratory Syncytial Virus Not Detected (NotDetected)
[2024-10-21] MEDS: guaiFENesin 600 MG TAB.ER.12H PO (21:28)
[2024-10-21 23:06] LABS: Rhinovirus/Enterovirus Detected (NotDetected)
[2024-10-22 01:14] VITALS: BP 113/64; PULSE 74
[2024-10-22] MEDS: IBUPROFEN 400 MG TABLET 800 MG PO (01:14)
[2024-10-22 04:50] VITALS: BP 116/63; PULSE 70; RESP 16; TEMP 36.5; O2SAT 96
[2024-10-22] MEDS: ACETAMINOPHEN 500MG TAB 1000 MG PO (04:53)
[2024-10-22 08:03] VITALS: BP 128/85; PULSE 88; RESP 18; TEMP 36.8; O2SAT 98
[2024-10-22] MEDS: LABETALOL 100MG TABLET 200 MG PO (08:03)
--- NOTE | 2024-10-22 13:29 | EXP.DC.SUM ---
General Admission date:: 10/20/24 Discharge date: 10/22/24 HPI HPI HPI: Tobin Gonzalez is a 29-year-old at 37 weeks and 1 days gestation who presented to labor and delivery for medically indicated induction of labor. Her has been chronic hypertension with superimposed preeclampsia, gestational diabetes, obesity, and history of recurrent loss. This she has taken aspirin, insulin glargine at 20 units at night, labetalol 200 mg twice daily, and a vitamin. On presentation patient endorsed good movement and denies any leakage of fluid or vaginal bleeding. O+, antibody negative, rubella immune, hepatitis B negative, hepatitis C negative, RPR negative, HIV negative 1 hour GTT: 154 3-hour GTT: 98/195/154/117 GBS negative Hospital Course Hospital Course Hospital Course: Tobin Gonzalez is a 29-year-old day #2 from normal spontaneous vaginal delivery with a second-degree perineal laceration. She delivered a live viable male who weighed 8 pounds 0 ounces. Apgars were 8 and 9 at 1 and 5 minutes respectively. Length was 19-1/2 inches. Gestational age at delivery was 37 weeks and 1 day gestation. She delivered on 10/20/2024 at 1427. She has done well and has remained afebrile with her at her hospitalization. Her was complicated by preeclampsia and gestational diabetes. Her day 1 sugar was appropriate. Her blood pressure has been well-controlled and her labs have remained normal. course and induction was complicated by an upper respiratory infection. She was sent home with medicine for this and given a breathing treatment last night which the patient reports helped. Her panel was positive for rhinovirus. She is eating and drinking and ambulating. She is breast feeding. Her lochia is normal. She has O Rh+ blood, she is rubella immune and was group B streptococcus negative. She will be discharged home to follow-up with Dr. Barber in 1 weeks time for a blood pressure check. Her return precautions were reviewed in detail with strict blood pressure discussion. She will continue with her vitamins and iron. She will take ibuprofen as well. She was given the usual instructions with respect to limiting her activity, driving and sexual activity. She was given instructions with respect to wound care. Her condition on discharge is stable and improved. Exam Data for Last 24 hours Vital signs and Labs for Last 24 Hours: Temp Pulse Resp BP Pulse Ox O2 Del Method 98.2 F 88 18 128/85 98 Room Air 10/22/24 08:03 10/22/24 08:03 10/22/24 08:03 10/22/24 08:03 10/22/24 08:03 10/22/24 08:03 Laboratory Results - last 24 hr 10/21/24 20:48: Chlamy pneumoniae PCR Not detected, Adenovirus (PCR) Not detected, B. pertussis DNA (PCR) Not detected, Coronavirus OC43 (PCR) Not detected, Coronavirus HKU1 (PCR) Not detected, Coronavirus 229E (PCR) Not detected, SARS-CoV-2 (PCR) Not detected, Coronavirus NL63 (PCR) Not detected, Human Metapneumovir PCR Not detected, Influenza A (H1) PCR Not detected, Influ A (H1N1/09) PCR Not detected, Influenza A (H3) PCR Not detected, Influenza Type A (PCR) Not detected, Influenza Type B (PCR) Not detected, M. pneumoniae (PCR) Not detected, Parainfluenza 1 (PCR) Not detected, Parainfluenza 2 (PCR) Not detected, Parainfluenza 3 (PCR) Not detected, Parainfluenza 4 (PCR) Not detected, RSV (PCR) Not detected, Entero/Rhino (PCR) Detected A I & O for Last 24 hours: Intake & Output 10/19/24 10/20/24 10/21/24 10/22/24 23:59 23:59 23:59 23:59 Weight 209 lb 15.986 oz Microbiology Reports for the Last 24 Hours: Microbiology 10/20/24 04:23 Urine,Clean Catch Urine Culture - Final Multiple organisms, suggests contamination. Narrative: General: patient is alert oriented in no acute distress and responds appropriately to questions. Appears to be in minimal pain. HEENT: NCAT, EOMI, moist mucous membranes, neck supple with full ROM Cardiovascular: RRR +S1/S2, no murmurs or rubs Pulmonary: Clear to auscultation bilaterally, nonlabored breathing, symmetric chest rise Abdominal: Fundus below the umbilicus, firm, and tenderness appropriate for the period. Extremities: trace edema, no tenderness or cyanosis noted Skin: Normal turgor, intact, warm. Negative for erythema, pallor, petechia, or lesions Neurologic: Negative for sensory or motor deficit Psychiatric: Normal affect, normal thought process, good judgment and insight, no depression or anxious mood appreciated. Results Data Completed and Pending Labs on day of discharge: Labs from last 24 hours 10/21/24 20:48 Chlamy pneumoniae PCR Not detected Adenovirus (PCR) Not detected B. pertussis DNA (PCR) Not detected Coronavirus OC43 (PCR) Not detected Coronavirus HKU1 (PCR) Not detected Coronavirus 229E (PCR) Not detected SARS-CoV-2 (PCR) Not detected Coronavirus NL63 (PCR) Not detected Human Metapneumovir PCR Not detected Influenza A (H1) PCR Not detected Influ A (H1N1/09) PCR Not detected Influenza A (H3) PCR Not detected Influenza Type A (PCR) Not detected Influenza Type B (PCR) Not detected M. pneumoniae (PCR) Not detected Parainfluenza 1 (PCR) Not detected Parainfluenza 2 (PCR) Not detected Parainfluenza 3 (PCR) Not detected Parainfluenza 4 (PCR) Not detected RSV (PCR) Not detected Entero/Rhino (PCR) Detected A DS: Diagnosis Discharge Diagnosis (1) Encounter for induction of labor: Status: Acute Code(s): Z34.90 - Encounter for supervision of normal , unspecified, unspecified trimester (2) Chronic hypertension with superimposed preeclampsia: Status: Acute Code(s): O11.9 - Pre-existing hypertension with pre-eclampsia, unspecified trimester (3) Gestational diabetes: Status: Acute Code(s): O24.419 - Gestational diabetes mellitus in , unspecified control Qualifiers: Gestational diabetes mellitus control: insulin-controlled Trimester: third trimester Qualified Code(s): O24.414 - Gestational diabetes mellitus in , insulin controlled (4) History of recurrent miscarriages: Status: Acute Code(s): N96 - Recurrent loss (5) Obesity (BMI 30.0-34.9): Status: Acute Code(s): E66.811 - Obesity, class 1 (6) (normal spontaneous vaginal delivery): Status: Acute Code(s): O80 - Encounter for full-term uncomplicated delivery (7) Anemia affecting : Status: Acute Code(s): O99.019 - Anemia complicating , unspecified trimester Meds Home Medications and Allergies Home Medications ?Medication ?Instructions ?Recorded ?Confirmed ?Type vits no.126-ferrous fum 1 tab PO DAILY 03/24/24 10/20/24 History 28 mg iron-folic acid 800 mcg tablet (Classic ) labetalol 200 mg tablet 200 mg PO BID #60 tabs 09/22/24 10/20/24 Rx acetaminophen 500 mg tablet 500 mg PO Q6H PRN fever or pain 10/22/24 Rx #30 tabs albuterol sulfate 2.5 mg/3 mL 2.5 mg (3 mL) inhalation Q6H PRN 10/22/24 Rx (0.083 %) solution for nebulization Shortness Of Breath #90 mL azelastine 205.5 mcg (0.15 %) 1 spray intranasal HS #30 mL 10/22/24 Rx nasal spray (Astepro Allergy) budesonide 0.5 mg/2 mL suspension 0.5 mg (2 mL) inhalation Q6H PRN 10/22/24 Rx for nebulization (Pulmicort) Shortness Of Breath #60 mL fluticasone propionate 50 1 spray intranasal DAILY #16 grams 10/22/24 Rx mcg/actuation nasal spray,suspension (24 Hour Allergy Relief) ibuprofen 800 mg tablet 800 mg PO Q8H PRN pain #60 tabs 10/22/24 Rx sennosides 8.6 mg tablet (Senna 8.6 mg PO BIDP PRN Constipation 10/22/24 Rx Lax) #60 tabs New Prescriptions to Start Prescriptions: acetaminophen Sherrell Barber albuterol sulfate Sherrell Barber azelastine [Astepro Allergy] Sherrell Barber budesonide [Pulmicort] Sherrell Barber fluticasone propionate [24 Hour Allergy Relief] Sherrell Barber ibuprofen Sherrell Barber sennosides [Senna Lax] Sherrell Barber Allergies Allergy/AdvReac Type Severity Reaction Status Date / Time amoxicillin Allergy Mild Hives Verified 10/20/24 04:42 Discharge Plan Disposition Patient Disposition: Home, Self-Care Condition: Good Discharge Order Discharge Orders: Discharge Order (Routine); Ordered 10/22/24 Ordered By: Sherrell Barber Follow up Plan Follow up with: Sherrell Barber DO [Staff Physician, [employer] MACHINE OPERATOR] - 10/27/24 Prescriptions/Medication Reconciliation: New albuterol sulfate 2.5 mg /3 mL (0.083 %) Solution For Nebulization 2.5 mg inhalation Q6H PRN (Reason: Shortness Of Breath) Qty: 90 0RF budesonide [Pulmicort] 0.5 mg/2 mL Suspension For Nebulization 0.5 mg inhalation Q6H PRN (Reason: Shortness Of Breath) Qty: 60 0RF sennosides [Senna Lax] 8.6 mg Tablet 8.6 mg PO BIDP PRN (Reason: Constipation) Qty: 60 2RF ibuprofen 800 mg tablet 800 mg PO Q8H PRN (Reason: pain) Qty: 60 2RF acetaminophen 500 mg tablet 500 mg PO Q6H PRN (Reason: fever or pain) Qty: 30 3RF fluticasone propionate [24 Hour Allergy Relief] 50 mcg/actuation spray,suspension 1 spray intranasal DAILY Qty: 16 2RF Rx Instructions: administer into each nostril azelastine [Astepro Allergy] 205.5 mcg (0.15 %) spray,non-aerosol 1 spray intranasal HS Qty: 30 0RF Rx Instructions: administer into each nostril Continued Classic 28 mg iron- 800 mcg tablet 1 tab PO DAILY labetalol 200 mg tablet 200 mg PO BID Qty: 60 2RF Discontinued aspirin 81 mg tablet,delayed release (DR/EC) 81 mg PO BID insulin glargine-yfgn [Semglee(insulin glarg-yfgn)Pen] 100 unit/mL (3 mL) insulin pen 8 unit SQ HS Patient Comments: INJECT 8 UNITS SUBCUTANEOUSLY EVERY DAY AT BEDTIME DISCARD USED PEN 28 DAYS FROM FIRST USE Problem Reconciliation Problems Reviewed?: Yes Patient Discharge Instructions ACTIVITY: Continue current activity DIET: advance to your usual diet Additional Instructions: Congratulations on the delivery of your sweet baby boy! It is my privilege to be your doctor and I am so thankful I could be a part of your special day. Discharge: -Take 800 mg Ibuprofen every 8 hours as needed for pain. You can also take 500-1000 mg of Tylenol in between doses, every 6-8 hours. -Colace can be taken 1-2 times per day as you need to soften your stool. Make sure to drink at least 8 cups of water per day. -Iron supplements can make you constipated. You can take iron tablets every other day if constipation is too bad. -Nothing in the vagina for 6 weeks - no intercourse, douching, tampons. No tub baths or swimming pools. -Do not lift greater than 20pounds for 2 weeks, this is the equivalent of 2 gallons of milk. -Reasons to return to L&D or call On-Call doctor - fever (greater than 100.4) - heavy vaginal bleeding (soaking through 1 pad in less than 2 hours or passing clots that are egg sized) - vaginal discharge (malodorous and/or purulent) - severe headaches, leg tenderness/edema, or any other symptoms that warrant immediate medical attention. depression/blues - Normal to feel anxious/overwhelmed for first 2 weeks - Talk to your doctor if: anxiety lasts over 2 weeks, trouble bonding with baby, withdrawing from other family members, thoughts of harming yourself or others Blood pressure and preeclampsia instructions 1. Please take your blood pressure twice daily. 2. Please call if greater than 2 values are higher than: 150 systolic (the top number) or 90 diastolic (the bottom number). 3. Please go to the emergency room or labor and delivery triage if any value is higher than: 160 systolic (the top number) or 110 diastolic (the bottom number). 4. Please call if unrelenting headache (does not go away with rest or Tylenol or ibuprofen), changes in vision (spots, floaters, flashes of light), chest pain, shortness of breath, or right upper quadrant (liver) abdominal pain. Sherrell Barber DO [facility] [phone] *Nothing in the Vagina for 6 weeks* *No strenuous activity* *No heavy lifting* *No tub baths until okay's by MD* Patient Instructions: Depression, Hemorrhage, DI for Labor and Delivery, Vaginal , DI for Pre-eclampsia, [facility] Post Discharge Instructions Print Language: Egyptian Providers Primary Care Provider: Provider,Referral Admit Provider: Sherrell Barber Attending Provider: Sherrell Barber
== END 2024-10-22 14:15 | disposition short-term general hospital (02) | DRG 807 ==
PROVIDERS: Admitting Provider Obstetrics & Gynecology; Visit Provider Obstetrics & Gynecology
DX: O11.4 Pre-existing hypertension with pre-eclampsia, complicating childbirth (principal); Z37.0 Single live birth; O99.214 Obesity complicating childbirth; O24.424 Gestational diabetes mellitus in childbirth, insulin controlled; E66.811 Obesity, class 1; O26.23 Pregnancy care for patient with recurrent pregnancy loss, third trimester; O70.1 Second degree perineal laceration during delivery; O69.81X0 Labor and delivery complicated by cord around neck, without compression, not applicable or unspecified; Z3A.37 37 weeks gestation of pregnancy; Z79.4 Long term (current) use of insulin; Z79.82 Long term (current) use of aspirin; Z79.899 Other long term (current) drug therapy
CPT/HCPCS: 36415; 51702; 59025; 80053; 81001; 82962; 85025; 86592; 86850; 87086; 87633; 94761; J7120; J7121

== ENCOUNTER 2024-12-11 10:08 | Outpatient (CLI) | payer BC, SELFPAY ==
--- OUTSIDE RECORDS SUMMARY | 2024-12-11 10:15 | XMS_ITS | Encounter Summary ---
Author Organization [facility] Address [address] [place] [address] Care Team Providers Care Fish Protector Name Role Phone Joan South APRN Primary Care Provider + [phone] Reason for Visit * Reason Onset Date Comments Med Management 10/12/2024 Encounter Details Date Type Department Care Team (Late st Contact Info) Description 10/12/2024 Telephone [facility] MATERNAL MEDICINE [address] [facility] [address] [place] [address] Joan Grullon, RN Med Management Social History Tobacco Use Types Packs/Day Years Used Date Smoking Tobacco: Never Smokeless Tobacco: Never Alcohol Use Standard Drinks/Week Comments Never 0 (1 standard drink = 0.6 oz pur e alcohol) Estimated Date of Delivery Comme nts Yes 11/09/2024 Date entered mary jo or to episode creation Sex and Gender Information Value Date Recorded Sex Assigned at Not on file Legal Sex Female 11:49 AM EDT Gender Identity Not on file Sexual Orientation Not on file documented as of this encounter Miscellaneous Notes * Telephone Encounter - Joan Grullon, RN - 10/12/2024 3:01 PM EDT LM and sent Z[employer] On[employer] message documented in this encounter Plan of Treatment Not on file documented as of this encounter Visit Diagnoses Not on filedocumented in this encounter Care Teams Fish Protector Relationship Specialty Start Date End Date Joan South APRN [address] [place] [address] PCP - General Family Medicine 06/04/18 documented as of this encounter
--- OUTSIDE RECORDS SUMMARY | 2024-12-11 10:15 | XMS_ITS | Clinical Summary ---
Author Organization [facility] Address [address] [place] [id number] Phone [email or web address] Care Team Providers Care Batch Blender Name Role Phone Provider, No Primary Care Provider Unavailabl e Allergies Active Allergy Reactions Criticality Noted Date Comments Amoxicillin Rash Low 06/04/2018 Amoxicillin Unknown 10/30/2024 Medications No known medications Active Problems Problem Noted Date Diagnosed Date Headache disorder 09/18/2015 Migraine with aura 08/19/2015 Dysuria 01/24/2015 Sprain of distal tibiofibular ligament 5 Social History Tobacco Use Types Packs/Day Years Used Date Smoking Tobacco: Never Smokeless Tobacco: Never Tobacco Cessation:Counseling Given: Not Answered Intimate Partner Violence Answer Date R ecorded Insults You Not on file 08/15/2020 Threatens You Not on file 08/15/2020 Screams at You Not on file 08/15/2020 Physically Hurt Not on file 08/15/2020 Intimate Partner Violence Score Not on file 08/15/2020 Depression Answer Date Recorded PHQ Total Score Not on file 07/06/2021 Stress Answer Date Recorded Stress in your Life Not on file 03/08/2024 Dealing with Stress 3 03/08/2024 Comments Unknown Sex and Gender Information Value Date Recorded Sex Assigned at Not on file Legal Sex Female 4:51 AM CDT Gender Identity Not on file Sexual Orientation Not on file Last Filed Vital Signs Vital Sign Reading Time Taken Comments Blood Pressure 130/98 10/30/2024 1:48 PM EDT Pulse 90 10/30/2024 1:48 PM EDT Temperature 36.1 C (97 F) 10/30/2024 1:48 PM EDT Respiratory Rate 14 10/30/2024 1:48 PM EDT Oxygen Saturation 97% 10/30/2024 1:48 PM EDT Inhaled Oxygen Concentration - - Weight 85.4 kg (188 lb 3.2 oz) 10/30/2024 1:48 P M EDT Height 164.2 cm (5' 4.65 ) 10/30/2024 1:48 PM ED T Body Mass Index 31.66 10/30/2024 1:48 PM EDT Plan of Treatment Health Maintenance Due Date Last Done Comments Cervical Cancer Screening Combo 1995 Dental Cleaning/Exam 1995 HIV Screening 1995 HPV / Cotest 1995 Hepatitis C Screening 1995 Pap Testing 1995 HPV Immunization (1 - 2-dose series) 08/31/2006 Hep B Infection Screening - Triple Screen 08/31/2013 Hepatitis B Immunization (1 of 3 - 19+ 3-dose series) 08/31/2014 Covid-19 Immunization ( - season) 2024 Influenza Immunization (#1) 2025 Annual Preventive Exam 10/30/2025 , 09/13/2018 Tetanus Diphtheria and Pertussis Immunization (2 - Td or Tdap) 08/17/2034 08/17/2024 HIB Immunization Aged Out No longer e ligible based on patient's age to complete this topic Hepatitis A Immunization Aged Out No longer eligible based on patient's age to complete this topic Pneumococcal: Ped (0 to 5 Yrs) and At-Risk Member (6 to 64 Yrs) Aged Out No longer eligible b ased on patient's age to complete this topic Polio Immunization Aged Out No longer eligible based on patient's age to complete this topic Varicella Immunization Aged Out No lo nger eligible based on patient's age to complete this topic Procedures Procedure Name Priority Date/Time Associated Diagnosis Comments SPIROMETRY WITHOUT BRONCHODILATOR Routine 10/30/2024 Pre-employment examination from Last 3 Months Results * Spirometry, Complete CPT 63066 (10/30/2024) FVC 3.86 liters Comment:102% FEV1 3.12 liters Comment:97% FEV1/FVC 81% % Comment:95% Breath 10/30/2024 Marcie Delgadillo [employer] SUPERVISOR PFT ORDERABLES Final Result from Last 3 Months Insurance OPT OUT NO COPAY NB Care Teams Batch Blender Relationship Specialty Start Date End Date Provider, [place] [address] PCP - General Account Manager B2B 07/05/20
--- OUTSIDE RECORDS SUMMARY | 2024-12-11 10:15 | XMS_ITS | Clinical Summary ---
[facility] Address [address] [place] [address] Care Team Providers Care Shop Tailor Apprentice Name Role Phone Joan South Ray DE JESUS Primary Care Provider [phone] Allergies Active Allergy Reactions Criticality Noted Date Comments Amoxicillin Rash Low 06/04/2018 Childhood allergy Medications HYDROcodone-acet aminophen (NORCO) 5-325 MG per tablet Take 1 tablet by mouth Every 6 (Six) Hours As Needed for Moderate Pain . 12 tablet 9 Active Continuous Glucose Sensor (Dexcom G6 Sensor) USE DIRECTED TO TEST BLOOD GLUCOSE LEVEL CHANGE SENSOR EVERY 10 DAYS 5 Active Continuous Glucose Transmitter (Dexcom G6 Transmitter) misc USE DIRECTED TO TEST BLOOD GLUCOSE LEVEL (CHANGE TRANSMITTER EVERY 90 DAYS) 5 Active Vit-Fe Fumarate-FA ( vitamin 27-0.8) 27-0.8 MG tablet tablet Take 1 tablet by mouth Daily. Active aspirin 81 MG EC tablet Take 1 tablet by mouth 2 (Two) Times a Day. Active Semglee, yfgn, 100 UNIT/ML solution pen-injector Inject 18 Units under the skin into the appropriate area as directed Every Night. 15 mL 5 Active Active Problems Problem Noted Date Diagnosed Date Gestational diabetes mellitus 09/30/2024 Assessment & Plan (09/30/2024 11:13 AM EDT): 1-hr GCT 154mg/dl. 3-hr GTT 98/195/154/117. Pt was started on insulin at 30wks. Patient is currently taking Lantus 8u qhs. She reports her fasting blood sugars are 95-115mg/dl and her post-prandial values are 140's. We reviewed the goals for blood glucose in , including fasting blood sugars < 90-95mg/dl and 2-hr post-prandial values < 110-120mg/dl. We discussed dietary hacks/changes that can help with blood sugars. - Recommend patient increase her Lantus to 10u qhs - We will review her blood glucose data weekly by downloading her Dexcom and will recommend adjustments in her insulin dosing H/O pre-eclampsia in prior , currently 09/30/2024 Assessment & Plan (09/30/2024 12:03 PM EDT): Pt taking ASA 162mgs daily. Gestational hypertension, antepartum 09/30/2024 Assessment & Plan (09/30/2024 12:02 PM EDT): Pt has a history of GHTN at term with last that then became preeclampsia. At her initial visit in this she had an elevated BP but they have been normal at all other visits since. She is taking ASA 162mgs daily. BP today is 146/101 then 143/86. Patient thinks she is just nervous. She denies si's/sx's of preeclampsia. Urine dip is trace protein only. Patient is seeing her primary OB later today for an NST and they will check her BP's there. Estimated Date of Delivery Comme nts Yes 11/09/2024 Date entered mary jo or to episode creation Encounters Date Type Department Care Team Description 11/01/2024 Telephone [facility] MATERNAL MEDICINE [address] [facility] [address] [place] [address] Joan Grullon, RN Med Management 10/12/2024 Telephone [facility] MATERNAL MEDICINE [address] [facility] [address] [place] [address] Joan Grullon, RN Med Management 10/06/2024 Medication Therapy Management [facility]ERNAL MEDICINE [address] [facility] [address] [place] [phone] Krysta Khan MD 10/02/2024 Telephone [facility] MATERNAL MEDICINE [address] [facility] [address] [place], [place] [phone] Tari Marshall, travel registered nurse pacu Only 09/22/2024 8:30 AM EDT Office Visit [facility] MATERNAL MEDICINE [address] [facility] [address] [place], [place] [phone] Krysta Khan MD Gestational diabetes mellitus (GDM), antepartum, gestational diabetes method of control unspecified; Gestational hypertension, antepartum; H/O pre-eclampsia in prior , currently ; 33 weeks gestation of 09/22/2024 8:04 AM EDT - 09/22/2024 11:59 PM EDT Hospital Encounter [facility] US PER DIAG CTR [address] [place] [phone] Dayne Barber, Insulin controlled gestational diabetes mellitus (GDM) in third trimester; Hx of preeclampsia, prior , currently ; Obesity in , antepartum Discharge Disposition: Home or Self Care 09/22/2024 Travel from Last 3 Months Social History Tobacco Use Types Packs/Day Years Used Date Smoking Tobacco: Never Smokeless Tobacco: Never Tobacco Cessation:Counseling Given: Not Answered Alcohol Use Standard Drinks/Week Comments Never 0 [...] Sign Reading Time Taken Comments Blood Pressure 146/101 09/22/2024 8:48 AM EDT 143 /86 Pulse 97 06/04/2018 11:35 AM EST Temperature 36.9 C (98.4 F) 06/04/2018 11:35 AM EST Respiratory Rate 14 06/04/2018 11:3 5 AM EST Oxygen Saturation 98% 06/04/2018 11: 35 AM EST Inhaled Oxygen Concentration - - Weight 94.7 kg (208 lb 12.8 oz) 09/22/2024 8:48 AM EDT Height 165.1 cm (5' 5 ) 06/04/2018 11:4 3 AM EST Body Mass Index 34.75 06/04/2018 11:43 AM EST Plan of Treatment Health Maintenance Due Date Last Done Comments Annual Gynecologic Pelvic and Breast Exam 1995 PAP SMEAR 08/31/2016 COVID-19 Vaccine (3 - 2023- season) 2024 10/11/2020, 09/13/2020 ANNUAL PHYSICAL 09/14/2024 INFLUENZA VACCINE 01/31/2025 04/18/2018 TDAP/TD VACCINES (3 - Td or Tdap) 08/17/2034 08/17/2024, 10/06/2021 CHLAMYDIA SCREENING Discontinued 02/24/2023 HEPATITIS C SCREENING Completed 02/24/2023 , 02/24/2023, 05/12/2021 Pneumococcal Vaccine 0-49 Aged Out No longer eligible based on patient's age to complete this topic RSV Vaccine - Adults (No Doses Required) Completed Procedures Procedure Name Priority Date/Time Associated Diagnosis Comments [facility] Routine 09/22/2024 9:14 AM EDT Insulin controlled gestational diabetes mellitus (GDM) in third trimester Hx of preeclampsia, prior , currently Obesity in , antepartum POCT PROTEIN, URINE, QUALITATIVE, DIPSTICK Routine 09/22/2024 9:00 AM EDT 33 weeks gestation of from Last 3 Months Results * [facility] (09/22/2024 9:14 AM EDT) Anatomical Region Laterality Modality Ultrasound 09/22/2024 9:01 AM EDT Narrative 09/30/2024 12:13 PM EDT PAT NAME: LUCILLE GONZALEZ [facility] REC#: [id number] DA: 1995 PAT GEND: F PAT TYPE: O EXAM VICENTE: [id number] REF PHYS DAYNE BARBER Comparison Studies There are no relevant prior studies to which this study is being compared Patient Status Outpatient Indication ======== CHTN. Gestational diabetes. Size greater than dates. Hx preeclampsia. Obesity BMI 34. Maternal Assessment Height 165 cm Height (ft) 5 ft Height (in) 5 in Weight 94 kg Weight (lb) 208 lb BMI 34.66 kg/m Method ======= Transabdominal ultrasound examination. View: Suboptimal view: limited by late gestational age ========= Baez . Number of fetuses: 1 Dating ====== Method of dating: based on stated JUSTUS GA by prior assessment 33 w + 1 d JUSTUS by prior assessment: 11/09/2024 Ultrasound examination on: 09/22/2024 GA by U/S based upon: AC, BPD, Femur, HC GA by U/S 36 w + 1 d JUSTUS by U/S: 10/19/2024 Assigned: based on stated JUSTUS, selected on 09/22/2024 Assigned GA 33 w + 1 d Assigned JUSTUS: 11/09/2024 length 280 d Biometry Standard BPD 91.1 mm 37w 0d >99% Hadlock OFD 113.8 mm 38w 6d >99% Sarai HC 327.9 mm 37w 2d 97% Hadlock Cerebellum tr 40.9 mm 32w 4d 18% Hill AC 335.3 mm 37w 3d >99% Hadlock Femur 63.7 mm 32w 6d 32% Hadlock Humerus 63.4 mm 36w 6d >99% Sarai HC / AC 0.98 EFW 2,893 g 36w 3d >99% Hadlock EFW (lb) 6 lb EFW (oz) 6 oz EFW by: Hadlock ([id number]-FL) Extended Cav. septi pel. tr 8.0 mm Process Manufacturing Engineer 5.4 mm CM 8.0 mm 67% Nicolaides Nasal bone 10.4 mm Head / Face / Neck Cephalic index 0.80 49% Nicolaides Extremities / Bony Struc FL / BPD 0.70 FL / HC 0.19 FL / AC 0.19 Other Structures FHR 135 bpm General Evaluation Cardiac activity present. FHR 135 bpm. movements present. Presentation cephalic. Placenta Placental site: posterior. Umbilical cord Cord vessels: 3 vessel cord. Insertion site: Not visible. Amniotic fluid Amount of AF: normal. MVP 7.5 cm. MICHAEL 23.3 cm. Q1 4.7 cm, Q2 7.5 cm, Q3 7.1 cm, Q4 4.1 cm. Anatomy Cranium: Appears normal Lateral ventricles: Normal Midline falx: Normal Cavum septi pellucidi: Normal Cerebellum: Normal Cisterna magna: Normal Lips: Normal Profile: Normal Nose: Normal Face Palate: Normal Mandible: suboptimal Orbits: Normal 4-chamber view: Normal RVOT view: Normal LVOT view: Normal Heart / Thorax Aortic arch view: Normal SVC: normal IVC: normal 3-vessel view: Appears normal 8-mphdkp-lferyyo view: Appears normal Stomach: Normal Kidneys: Normal Bladder: Normal Cervical spine: suboptimal Thoracic spine: suboptimal Lumbar spine: suboptimal Sacral spine: suboptimal Arms: suboptimal Legs: suboptimal Biophysical Profile 2: breathing movements 2: Gross body movements 2: tone 2: Amniotic fluid volume 8/8 Biophysical profile score Interpretation: normal Maternal Structures Uterus / Cervix Approach: Transabdominal Cervical length 33.9 mm Ovaries / Tubes / Adnexa Rt ovary: Not visualized Lt ovary: Not visualized Impression Lucille presents today for a anatomic survey and growth assessment. On today's exam, SIUP is noted in cephalic presentation with biometry demonstrating accelerated growth. EFW overall measures >99th percentile. AC measures >99th percentile. MICHAEL is borderline polyhydramnios at 23cms. Placenta is posterior. BPP is 8/8. Limited but normal appearing anatomy is visualized. Recommendation We will pull her blood sugar profile weekly and make suggested adjustments to her insulin. Recommend follow-up ultrasound in your office for growth at 36wks to determine safest mode of delivery. Recommend continued testing up until delivery. Coding ======= Description: 27241-77 Detailed Ultrasound Description: 33087-01 BPP without NST Nursing Tech: Kristen Starkey RDMS Physician: Krysta Khan MD Electronically signed by: Krysta Khan MD at: 12:13 Procedure Note Krysta Khan MD - 09/30/2024 PAT NAME: LUCILLE GONZALEZ MED REC#: [id number] DA: 1995 PAT GEND: F PAT TYPE: O EXAM VICENTE: [id number] REF PHYS DAYNE BARBER Comparison Studies There are no relevant prior studies to which this study is beingcompared Patient Status Outpatient Indication ======== CHTN. Gestational diabetes. Size greater than dates. Hx preeclampsia.Obesity BMI 34. Maternal Assessment Bmvshn576 cm Height (ft)5 ft Height (in)5 in Ygfhma72 kg Weight (lb)208 lb BMI34.66 kg/m Method ======= Transabdominal ultrasound examination. View: Suboptimal view: limited bylate gestational age ========= Baez . Number of fetuses: 1 Dating ====== Method of dating:based on stated JUSTUS GA by prior [id number] w + 1 d JUSTUS by prior assessment:11/09/2024 Ultrasound examination on:09/22/2024 GA by U/S based upon:AC, BPD, Femur, HC GA by U/S36 w + 1 d JUSTUS by U/S:10/19/2024 Assigned:based on stated JUSTUS, selected on 09/22/2024 Assigned GA33 w + 1 d Assigned JUSTUS:11/09/2024 d Biometry Standard BPD91.1 mm 37w 0d >99% Hadlock VWP812.8 mm 38w 6d >99% Sarai HC327.9 mm 37w 2d 97% Hadlock Cerebellum tr40.9 mm 32w 4d 18% Hill AC335.3 mm 37w 3d >99% Hadlock Femur63.7 mm 32w 6d 32% Hadlock Xsjuyli60.4 mm 36w 6d >99% Sarai HC / AC0.98 EFW2,893 g 36w 3d >99% Hadlock EFW (lb)6 lb EFW (oz)6 oz EFW by:Hadlock (LCD-KG-RG-FL) Extended Cav. septi pel. tr8.0 mm Vp5.4 mm CM8.0 mm 67% Nicolaides Nasal bone10.4 mm Head / Face / Neck Cephalic index0.80 49% Nicolaides Extremities / Bony Struc FL / BPD0.70 FL / HC0.19 FL / AC0.19 Other Structures TAZ476 bpm General Evaluation Cardiac activity present. FHR 135 bpm. movements present. Presentation cephalic. Placenta Placental site: posterior. Umbilical cord Cord vessels: 3 vessel cord. Insertion site: Not visible. Amniotic fluid Amount of AF: normal. MVP 7.5 cm. MICHAEL 23.3 cm. Q1 4.7 cm,Q2 7.5 cm, Q3 7.1 cm, Q4 4.1 cm. Anatomy Cranium:Appears normal Lateral ventricles:Normal Midline falx:Normal Cavum septi pellucidi:Normal Cerebellum:Normal Cisterna magna:Normal Lips:Normal Profile:Normal Nose:Normal Face Palate:Normal Mandible:suboptimal Orbits:Normal 4-chamber view:Normal RVOT view:Normal LVOT view:Normal Heart / Thorax Aortic arch view:Normal SVC:normal IVC:normal 3-vessel view:Appears normal 5-cdtarw-fsyfywq view:Appears normal Stomach:Normal Kidneys:Normal Bladder:Normal Cervical spine:suboptimal Thoracic spine:suboptimal Lumbar spine:suboptimal Sacral spine:suboptimal Arms:suboptimal Legs:suboptimal Biophysical Profile 2: breathing movements 2: Gross body movements 2: tone 2: Amniotic fluid volume 8/8 Biophysical profile score Interpretation: normal Maternal Structures Uterus / Cervix Approach:Transabdominal Cervical .9 mm Ovaries / Tubes / Adnexa Rt ovary:Not visualized Lt ovary:Not visualized Impression Lucille presents today for a anatomic survey and growth assessment. On today's exam, SIUP is noted in cephalic presentation with biometrydemonstrating accelerated growth. EFW overall measures >99th percentile.AC measures >99th percentile. MICHAEL is borderline polyhydramnios at 23cms. Placenta isposterior. BPP is 8/8. Limited but normal appearing anatomy is visualized. Recommendation We will pull her blood sugar profile weekly and make suggested adjustmentsto her insulin. Recommend follow-up ultrasound in your office for growth at 36wks todetermine safest mode of delivery. Recommend continued testing up until delivery. Coding ======= Description:40501-30 Detailed Ultrasound Description:58634-26 BPP without NST Nursing Tech: Kristen Starkey RDMS Physician: Krysta Khan MD Electronically signed by: Krysta Khan MD at: 12:13 Dayne Barber DO IMG US ORDERABLES Final Res ult * (ABNORMAL) POC Protein, Urine, Qualitative, Dipstick (09/22/2024 9:00 AM EDT) Protein, POC Trace(A) Negative mg/dL [facility] Lot Number [id number] [facility] Expiration Date [facility] Urine 09/22/2024 9:00 AM EDT us Krysta Khan MD POINT OF CARE TEST ORDERABL ES Final Result [facility]
[address] [place] [address], [place] [phone] from Last 3 Months Insurance [facility] PPO Care Teams Shop Tailor Apprentice Relationship Specialty Start Date End Date Joan South APRN [address] [place] [id number] PCP - General Family Medicine 06/04/18
--- OUTSIDE RECORDS SUMMARY | 2024-12-11 10:15 | XMS_ITS | Encounter Summary ---
[facility] Address [address] [place] [address] Care Team Providers Care Health Screener Name Role Phone Joan South APRN Primary Care Provider + [phone] Reason for Visit * Reason Onset Date Comments Med Management 11/01/2024 Encounter Details Date Type Department Care Team (Late st Contact Info) Description 11/01/2024 Telephone [facility] MATERNAL MEDICINE [address] [facility] [address] [place] [address] Joan Grullon, RN Med Management [...] Telephone Encounter - Joan Grullon, RN - 11/01/2024 4:24 PM EDT LM for pt to check Grafighters message documented in this encounter Plan of Treatment Not on file documented as of this encounter Visit Diagnoses Not on filedocumented in this encounter Care Teams Health Screener Relationship Specialty Start Date End Date Joan South APRN [address] [place] [address] PCP - General Family Medicine 06/04/18 documented as of this encounter
== END 2024-12-11 23:59 | disposition home or self-care (01) ==
LOC: LAB 10:09
PROVIDERS: PCP Internal Medicine; Visit Provider Obstetrics & Gynecology
DX: R69 Illness, unspecified (principal)

== ENCOUNTER 2024-12-12 08:36 | Outpatient (CLI) | payer BC, SELFPAY ==
--- OUTSIDE RECORDS SUMMARY | 2024-12-12 08:46 | XMS_ITS | Clinical Summary ---
Author Organization [facility] Address [address] [place] [address] Phone [email or web address] Care Team Providers Care High Pressure Cleaner Name Role Phone Provider, No Primary Care [...] 3 Months Results * Spirometry, Complete CPT 97415 (10/30/2024) FVC 3.86 liters Comment:102% FEV1 3.12 liters Comment:97% FEV1/FVC 81% % Comment:95% Breath 10/30/2024 Marcie Delgadillo SENIOR ENGINEERING TECH PFT ORDERABLES Final Result from Last 3 Months Insurance OPT OUT NO COPAY NB Care Teams High Pressure Cleaner Relationship Specialty Start Date End Date Provider, [place] [address] PCP - General [employer] Spanish Teacher 07/05/20
--- OUTSIDE RECORDS SUMMARY | 2024-12-12 08:47 | XMS_ITS | Encounter Summary ---
[facility] Address [address] [place] [address] Care Team Providers Care Carving Machine Operator Name Role Phone Joan South APRN Primary Care Provider + [phone] Reason for Visit * Reason Onset Date Comments Med Management 11/01/2024 Encounter Details Date Type Department Care Team (Late st Contact Info) Description 11/01/2024 Telephone [facility] MATERNAL MEDICINE [address] [facility] [address] [place] [address] Joan Grullon, RN Med Management [...] PM EDT LM for pt to check i.Meter message documented in this encounter Plan of Treatment Not on file documented as of this encounter Visit Diagnoses Not on filedocumented in this encounter Care Teams Carving Machine Operator Relationship Specialty Start Date End Date Joan South APRN [address] [place] [address] PCP - General Family Medicine 06/04/18 documented as of this encounter
--- OUTSIDE RECORDS SUMMARY | 2024-12-12 08:47 | XMS_ITS | Clinical Summary ---
[facility] Address [address] [place] [address] Care Team Providers Care Special Services Director Name Role Phone Joan South Ray DE JESUS Primary Care Provider +[phone] Allergies Active Allergy Reactions Criticality Noted Date [...] Type Department Care Team Description 11/01/2024 Telephone [facility] MATERNAL MEDICINE [address] [facility] [address] [place] [address] Joan Grullon, RN Med Management 10/12/2024 Telephone [facility] MATERNAL MEDICINE [address] [facility] [address] [place] [address] Joan Grullon, RN Med Management 10/06/2024 Medication Therapy Management [facility] MATERNAL MEDICINE [address] [facility] [address] [place] [phone] Krysta Khan MD 10/02/2024 Telephone [facility] MATERNAL MEDICINE [address] [facility] [address] [place], [place] [phone] Tari Marshall, blueprint reader Only 09/22/2024 8:30 AM EDT Office Visit [facility] MATERNAL MEDICINE [address] [facility] [address] [place], [place] [phone] Krysta Khan MD Gestational diabetes mellitus (GDM), antepartum, gestational diabetes method of control unspecified; Gestational hypertension, antepartum; H/O pre-eclampsia in prior , currently ; 33 weeks gestation of 09/22/2024 8:04 AM EDT - 09/22/2024 11:59 PM EDT Hospital Encounter [facility] US PER DIAG CTR [address] [place] [phone] Dayne Barber, Insulin controlled gestational diabetes mellitus [...] Procedure Name Priority Date/Time Associated Diagnosis Comments [facility] Routine 09/22/2024 9:14 AM [...] 12:13 PM EDT PAT NAME: LUCILLE GONZALEZ [facility] REC#: [id number] DA: 1995 PAT GEND: F PAT TYPE: O EXAM VICENTE: [id number] REF PHYS DAYNE BARBER Comparison Studies There [...] EFW (oz) 6 oz EFW by: Hadlock (BTV-JG-AE-FL) Extended Cav. septi pel. tr 8.[address]visor 5.4 mm CM 8.0 mm 67% Nicolaides [...] normal IVC: normal 3-vessel view: Appears normal 6-okwqyl-qnxebvt view: Appears normal Stomach: Normal Kidneys: Normal [...] testing up until delivery. Coding ======= Description: 18787-63 Detailed Ultrasound Description: 04222-26 BPP without NST Subway Train Operator: Kristen Starkey RDMS Physician: Krysta Khan MD Electronically signed by: Krysta Khan MD at: 12:13 Procedure Note Krysta Khan MD - 09/30/2024 PAT NAME: LUCILLE GONZALEZ MED REC#: [id number] DA: 1995 PAT GEND: F PAT TYPE: O EXAM VICENTE: [id number] REF PHYS DAYNE BARBER Comparison Studies There are no relevant prior studies to which this study is beingcompared Patient Status Outpatient Indication ======== CHTN. Gestational diabetes. Size greater than dates. Hx preeclampsia.Obesity BMI 34. Maternal Assessment Aaxwud893 cm Height (ft)5 ft Height (in)5 in Rfknip75 kg Weight (lb)208 lb BMI34.66 kg/m Method ======= Transabdominal ultrasound examination. View: Suboptimal view: limited bylate gestational age ========= Baez . Number of fetuses: 1 Dating ====== Method of dating:based on stated JUSTUS GA by prior w + 1 d JUSTUS by prior assessment:11/09/2024 Ultrasound examination on:09/22/2024 GA by U/S based upon:AC, BPD, Femur, HC GA by U/S36 w + 1 d JUSTUS by U/S:10/19/2024 Assigned:based on stated JUSTUS, selected on 09/22/2024 Assigned GA33 w + 1 d Assigned JUSTUS:11/09/2024 [id number] d Biometry Standard BPD91.1 mm 37w 0d >99% Hadlock SNF895.8 mm 38w 6d >99% Sarai HC327.9 mm 37w 2d 97% Hadlock Cerebellum tr40.9 mm 32w 4d 18% Hill AC335.3 mm 37w 3d >99% Hadlock Femur63.7 mm 32w 6d 32% Hadlock Hrfksfn67.4 mm 36w 6d >99% Sarai HC / AC0.98 EFW2,893 g 36w 3d >99% Hadlock EFW (lb)6 lb EFW (oz)6 oz EFW by:Hadlock (CHQ-AU-FS-FL) Extended Cav. septi pel. tr8.0 mm Vp5.4 mm CM8.0 mm 67% Nicolaides Nasal bone10.4 mm Head / Face / Neck Cephalic index0.80 49% Nicolaides Extremities / Bony Struc FL / BPD0.70 FL / HC0.19 FL / AC0.19 Other Structures BLU028 bpm General Evaluation Cardiac activity present. FHR [...] arch view:Normal SVC:normal IVC:normal 3-vessel view:Appears normal 1-kpjqqu-frvbuvn view:Appears normal Stomach:Normal Kidneys:Normal Bladder:Normal Cervical spine:suboptimal Thoracic spine:suboptimal Lumbar spine:suboptimal Sacral spine:suboptimal Arms:suboptimal Legs:suboptimal Biophysical Profile 2: breathing movements 2: Gross body movements 2: tone 2: Amniotic fluid volume 8/8 Biophysical profile score Interpretation: normal Maternal Structures Uterus / Cervix Approach:Transabdominal Cervical bpwier98.9 mm Ovaries / Tubes / Adnexa Rt [...] continued testing up until delivery. Coding ======= Description:05626-62 Detailed Ultrasound Description:20074-24 BPP without NST Subway Train Operator: Kristen Starkey RDMS Physician: Krysta Khan MD Electronically signed by: Krysta Khan MD at: 12:13 Dayne Barber DO IMG US ORDERABLES Final Res ult * (ABNORMAL) POC Protein, Urine, Qualitative, Dipstick (09/22/2024 9:00 AM EDT) Protein, POC Trace(A) Negative mg/dL [facility] Lot Number [id number] [facility] Expiration Date [facility] Urine 09/22/2024 9:00 AM EDT us Krysta Khan MD POINT OF CARE TEST ORDERABL ES Final Result [facility]
[address] [place] [address], [place] [phone] from Last 3 Months Insurance [facility] PPO Care Teams Special Services Director Relationship Specialty Start Date End Date Joan South APRN [address] [place] [address] PCP - General Family Medicine 06/04/18
[2024-12-12 11:13] LABS: Glucose, 2 Hour PP 134 mg/dl (74-100)
== END 2024-12-12 23:59 | disposition home or self-care (01) ==
LOC: LAB 08:37
PROVIDERS: PCP Internal Medicine; Visit Provider Obstetrics & Gynecology
DX: O24.419 Gestational diabetes mellitus in pregnancy, unspecified control (principal); Z3A.00 Weeks of gestation of pregnancy not specified
CPT/HCPCS: 36415